=== PATIENT | male | born 1985 | race Caucasian/White ===

== ENCOUNTER 2016-07-26 13:01 | Emergency (ER) | payer SELFPAY ==
[2016-07-26] MEDS ORDERED: ACETAMINOPHEN 325 MG TABLET PO ONE (13:19)
--- NOTE | 2016-07-26 13:24 | ER Document Report ---
ED Extremity Problem, Lower - General Chief Complaint: Ankle Injury Stated Complaint: RIGHT ANKLE INJURY Notes: Patient is a 22-year-old male presents emergency Department complaining of right ankle pain. Patient states that he rolled his ankle last evening woke up with pain and swelling this morning. Patient states that he is not able to bear weight on his foot. Normal sensation in his toes able to move his toes. Tried to flex or extend his ankle due to the pain. Patient denies any history of previous ankle injury requiring surgery. TRAVEL OUTSIDE OF THE [place] IN LAST 30 DAYS: No - Related Data Allergies/Adverse Reactions: No Known Allergies Allergy (Verified 07/26/16 13:12) Past Medical History - Social History Smoking Status: Current Every Day Smoker Family History: Reviewed & Not Pertinent Patient has suicidal ideation: No Patient has homicidal ideation: No Pulmonary Medical History: Reports: Hx Asthma Renal/ Medical History: Denies: Hx Peritoneal Dialysis - Immunizations Hx Diphtheria, Pertussis, Tetanus Vaccination: Yes Review of Systems - Review of Systems Musculoskeletal: See HPI -: Yes All other systems reviewed and negative Physical Exam - Vital signs Vitals: Temp Pulse Resp BP Pulse Ox 98.6 F 94 17 142/86 H 98 07/26/16 13:14 07/26/16 13:14 07/26/16 13:14 07/26/16 13:14 07/26/16 13:14 - Cardiovascular Rhythm: Regular Heart sounds: Normal auscultation Murmur: No Pulses: Normal: Posterior tibial - using doppler due to pain, Dorsalis pedis Normal capillary refill: Yes - Extremities Calf: Normal, Nontender. No: Abrasion, Deformity Ankle: Tender, Deformity - Swelling at the base of the fibula as well as subtle internal rotation of his foot, Edema, Limited ROM, Unable to bear weight. No: Abrasion Foot: Normal, Nontender. No: Abrasion, Deformity, Ecchymosis, Edema - Neurological Neuro grossly intact: Yes Cognition: Normal Orientation: AAOx4 [place] Coma Scale Eye Opening: Spontaneous [place] Coma Scale Verbal: Oriented [place] Coma Scale Motor: Obeys Commands [place] Coma Scale Total: 15 Sensory: Normal - Skin Skin Temperature: Warm Skin Moisture: Dry Skin Color: Normal Skin Turgor: Elastic Course - Re-evaluation Re-evalutation: 07/26/16 14:39 No evidence of fracture on x-ray. Foot is neurovascularly intact. Patient stable for discharge and can follow-up with PCP - Vital Signs Vital signs: Temp Pulse Resp BP Pulse Ox 98.4 F 71 16 135/78 H 98 07/26/16 14:28 07/26/16 14:28 07/26/16 14:28 07/26/16 14:28 07/26/16 14:28 - Diagnostic Test Radiology reviewed: Image reviewed, Reports reviewed Discharge - Discharge Clinical Impression: Ankle sprain Condition: Good Disposition: HOME, SELF-CARE Instructions: Nilo Wrap (OM), Use of Crutches (OM), Sprained Ankle (OM), Ice & Elevation (OM) Prescriptions: Ibuprofen [Motrin 600 Mg Tablet] 600 mg PO TID #15 tablet Forms: Return to Work
[2016-07-26 14:38] VITALS: BP 135/78
== END 2016-07-26 14:25 | disposition home or self-care (01) ==
LOC: ER 13:01
DX: S93.401A Sprain of unspecified ligament of right ankle, initial encounter (principal); M79.89 Other specified soft tissue disorders; X58.XXXA Exposure to other specified factors, initial encounter; F17.200 Nicotine dependence, unspecified, uncomplicated
CPT/HCPCS: 99283; 73610; L1902

== ENCOUNTER 2019-02-11 23:18 | Inpatient (IN) | payer SELFPAY ==
[2019-02-11 23:59] LABS: APPEARANCE,URINE SLIGHTLY-CLOUDY; BILIRUBIN,URINE MODERATE (NEGATIVE); COLOR,URINE AMBER; GLUCOSE, URINE NEGATIVE (NEGATIVE); KETONES,URINE NEGATIVE (NEGATIVE); LEUKOCYTE ESTERASE,URINE NEGATIVE (NEGATIVE); NITRITE,URINE NEGATIVE (NEGATIVE); PROTEIN,URINE 30 mg/dL (NEGATIVE); URINE SPECIFIC GRAVITY 1.023
[2019-02-12 00:10] LABS: ALBUMIN 2.7 g/dL (3.5-5.0); ALKALINE PHOSPHATASE 157 U/L (38-126); ANION GAP 12 (5-19); ASPARTATE AMINO TRANSFERASE 88 U/L (17-59); BILIRUBIN,DIRECT 3.8 mg/dL (0.0-0.4); BILIRUBIN,TOTAL 4.8 mg/dL (0.2-1.3); BLOOD UREA NITROGEN 12 mg/dL (7-20); CALCIUM 8.1 mg/dL (8.4-10.2); CARBON DIOXIDE 21 mmol/L (22-30); CHLORIDE 101 mmol/L (98-107); GLUCOSE 104 mg/dL (75-110); POTASSIUM 3.5 mmol/L (3.6-5.0); TOTAL PROTEIN 5.9 g/dL (6.3-8.2)
[2019-02-12 00:12] LABS: HEMATOCRIT 38.4 % (37.9-51.0); HEMOGLOBIN 13.2 g/dL (13.5-17.0); MEAN CORPUSCULAR HEMOGLOBIN 34.7 pg (27.0-33.4); MEAN CORPUSCULAR HGB CONC 34.3 g/dL (32.0-36.0); MEAN CORPUSCULAR VOLUME 101 fl (80-97); PLATELET COUNT 103 10^3/uL (150-450); RED BLOOD COUNT 3.79 10^6/uL (4.35-5.55); RED CELL DISTRIBUTION WIDTH 13.6 % (11.5-14.0); WHITE BLOOD COUNT 6.4 10^3/uL (4.0-10.5)
[2019-02-12 00:27] LABS: ABSOLUTE LYMPHOCYTES# (MANUAL) 0.6 10^3/uL (0.5-4.7); ABSOLUTE MONOCYTES # (MANUAL) 0.3 10^3/uL (0.1-1.4); BAND NEUTROPHILS % (MANUAL) 10 % (3-5); BASOPHILS % (MANUAL) 0 % (0-2); EOSINOPHILS % (MANUAL) 0 % (0-6); HYPOCHROMASIA 1+; LYMPHOCYTES % (MANUAL) 10 % (13-45); MONOCYTES % (MANUAL) 4 % (3-13); SEGMENTED NEUTROPHILS % (MAN) 76 % (42-78); TOTAL CELLS COUNTED 100
[2019-02-12 00:28] LABS: PLATELET COMMENT DECREASED
[2019-02-12] MEDS ORDERED: METHYLPREDNISOLONE INJ 125 MG/2 ML SDV IV ONE (01:24)
[2019-02-12] MEDS ORDERED: IPRATROPIUM BROMIDE 0.02% NEB 0.5 MG/2.5 ML AMPUL NEB ONE (01:25)
[2019-02-12] MEDS ORDERED: ALBUTEROL SULFATE 0.083% NEB 2.5 MG/3 ML AMPUL NEB ONE (01:25)
[2019-02-12] MEDS ORDERED: PREDNISONE 20 MG TABLET PO ONE (01:55)
--- NOTE | 2019-02-12 02:06 | RADIOLOGY REPORT (SQ) ---
CLINICAL HISTORY: cough COMPARISON: None. TECHNIQUE: XR CHEST 1 VIEW 02/12/2019 1:24 AM CDT FINDINGS: Cardiac silhouette is normal in size. There is a large consolidation in the mid and lower left lung. There is no pleural effusion. There is no pneumothorax. There are no acute osseous findings. IMPRESSION: Large left-sided pneumonia.
[2019-02-12] MEDS ORDERED: AZITHROMYCIN INJ 500 MG VIAL IV ONE (02:17)
[2019-02-12] MEDS ORDERED: CEFTRIAXONE 2 GM/D5W RTU 2 GM/50 ML RTUPB IV ONE (02:18)
--- NOTE | 2019-02-12 02:20 | ER Document Report ---
ED Respiratory Problem - General Chief Complaint: Breathing Difficulty Stated Complaint: DIFFICULTY BREATHING Time Seen by Provider: 02/12/19 01:24 Information source: Patient TRAVEL OUTSIDE OF THE [place] IN LAST 30 DAYS: No - HPI Patient complains to provider of: Asthma. No: Chest pain, CHF, COPD, Cough, Hurts to breath, Short of breath, Other Onset: Last week Duration: Continuous. No: Better, Gone now, Intermittent episodes, W orse/persistent Quality of pain: denies: No pain, Achy, Burning, Cramping, Dull, Fullness, Pressure, Sharp, Stabbing, Throbbing, Other Context: denies: DVT, Factor V Leiden, Hx asthma, Hx CHF, Hx COPD, Malignancy, , Recent cardiac event, Recent foreign travel, Recent long distance trvl, Recent immobilization, Recent surgery, Smoker, Other Chest pain/discomfort: Left, Worse with deep breaths. denies: Center, Constant, Heaviness, Intermittent, Pain, Radiates to arm, Radiates to back, Radiates to jaw, Right, Tightness Cough: Productive. denies: Nonproductive, Stridor, Suspect aspiration Sputum amount: Small. denies: None, Scant, Moderate, Large, Copious Sputum color: Green. denies: Brown, Clear, Creamy, [place], [place] tinged, Red (bloo d), Red [place], Rust, Small Clots, [place], White, Yellow At home treatment: denies: Bronchodilators, CPAP, Diuretics, Inhaled steroids, Oral steroids, Oxygen, Singulair, Theophylline Associated symptoms: Cough, Short of breath, Wheezing. denies: None, Ankle/leg swelling, Allergy/hay fever, Anxiety, Bloody cough, Chest pain/discomfort, Chills, Congestion, Dental decay, Difficulty breathing, Earache, Extertional dyspnea, Facial pain, Fever, Headache, Heart racing, Hoarseness, Hurts to breathe, Hyperventilation, Jaw pain, Leg/calf/joint pain, Muscle spasms, Orthopnea, PND, Runny nose, Sinus pain/pressure, Sore Throat, Sweaty, Tingling face, Tingling hands, Unable to swallow, Toothache, Other - Related Data Allergies/Adverse Reactions: No Known Allergies Allergy (Verified 07/26/16 13:12) Home Medications: none Past Medical History - Social History Smoking Status: Current Every Day Smoker Chew tobacco use (# tins/day): No Frequency of alcohol use: Occasional Drug Abuse: None Family History: Reviewed & Not Pertinent Patient has suicidal ideation: No Patient has homicidal ideation: No Pulmonary Medical History: Reports: Hx Asthma Renal/ Medical History: Denies: Hx Peritoneal Dialysis - Immunizations Hx Diphtheria, Pertussis, Tetanus Vaccination: Yes Review of Systems - Review of Systems Constitutional: Fever. denies: No symptoms reported, See HPI, Chills, Diaphoresis, Malaise, Weakness, Other, Weight gain, Weight loss, Recent illness EENT: denies: No symptoms reported, See HPI, Eye pain, Eye discharge, Blurred vision, Tearing, Double vision, Ear pain, Ear discharge, Nose pain, Nose congestion, Nose discharge, Sinus pressure, Sinus discharge, Throat pain, Diffi culty swallowing, Throat swelling, Mouth pain, Mouth swelling, Dental problem, Vertigo, Other Cardiovascular: denies: No symptoms reported, See HPI, Chest pain, Palpitations, Heart racing, Orthopnea, Dyspnea, Syncope, Dizziness, Lightheaded, Edema, Other, Paroxysmal Nocturnal Dysp Respiratory: Cough, Short of breath, Wheezing. denies: No symptoms reported, See HPI, Hurts to breathe, Hemoptysis, Sputum, Stridor, Other Gastrointestinal: denies: No symptoms reported, See HPI, Abdomen distended, Abdominal pain, Diarrhea, Nausea, Vomiting, Constipation, Blood streaked bowels, Poor appetite, Poor fluid intake, Blood in vomit, Black stools, Rectal bleeding, Last bowel movement, Fecal incontinence, Other -: Yes All other systems reviewed and negative Physical Exam - Vital signs Vitals: Temp Pulse Resp BP Pulse Ox 100.2 F 135 H 26 H 119/72 95 02/11/19 23:25 02/11/19 23:25 02/11/19 23:25 02/11/19 23:25 02/11/19 23:25 Notes: PHYSICAL EXAMINATION: GENERAL: Well-appearing, well-nourished and in no acute distress. HEAD: Atraumatic, normocephalic. EYES: Pupils equal round and reactive to light, extraocular movements intact, sclera anicteric, conjunctiva are normal. ENT: nares patent, oropharynx clear without exudates. Moist mucous membranes. NECK: Normal range of motion, supple without lymphadenopathy LUNGS: Rhonchi heard in the left upper and lower lobes. Rales are negative. Wheezes heard bilaterally. HEART: Regular rate and rhythm without murmurs ABDOMEN: Soft, nontender, normoactive bowel sounds. No guarding, no rebound. No masses appreciated. EXTREMITIES: Normal range of motion, no pitting or edema. No cyanosis. NEUROLOGICAL: No focal neurological deficits. Moves all extremities spontaneously and on command. PSYCH: Normal mood, normal affect. SKIN: Warm, Dry, normal turgor, no rashes or lesions noted. Course - Vital Signs Vital signs: Temp Pulse Resp BP Pulse Ox 100.3 F 146 H 25 H 123/71 94 02/12/19 04:07 02/12/19 02:35 02/12/19 03:01 02/12/19 03:00 02/12/19 03:01 - Laboratory Result Diagrams: 02/11/19 23:34 02/11/19 23:34 Laboratory results interpreted by me: 02/11/19 02/11/19 02/11/19 23:34 23:34 23:34 RBC 3.79 L Hgb 13.2 L MCV 101 H MCH 34.7 H Plt Count 103 L Band Neutrophils % 10 H Lymphocytes % (Manual) 10 L Carbonic Acid ABG pH ABG pCO2 ABG pO2 ABG Total CO2 Sodium 133.6 L Potassium 3.5 L Carbon Dioxide 21 L Lactic Acid Calcium 8.1 L Total Bilirubin 4.8 H Direct Bilirubin 3.8 H AST 88 H Alkaline Phosphatase 157 H Total Protein 5.9 L Albumin 2.7 L Urine Protein 30 H Urine Bilirubin MODERATE H Urine Urobilinogen 4.0 H 02/12/19 02/12/19 02:36 03:21 RBC Hgb MCV MCH Plt Count Band Neutrophils % Lymphocytes % (Manual) Carbonic Acid 0.89 L ABG pH 7.48 H ABG pCO2 29.5 L ABG pO2 64.3 L ABG Total CO2 22.1 L Sodium Potassium Carbon Dioxide Lactic Acid 3.7 H Calcium Total Bilirubin Direct Bilirubin AST Alkaline Phosphatase Total Protein Albumin Urine Protein Urine Bilirubin Urine Urobilinogen - Diagnostic Test Radiology reviewed: Image reviewed, Reports reviewed - Transfer of Care Notes: 02/12/19 04:16 Patient feeling better after treatments however be admitted due to pneumonia and sepsis. With hospitalist and he plans to admit the patient Discharge - Discharge Clinical Impression: Sepsis Pneumonia Qualifiers: Pneumonia type: due to unspecified organism Laterality: left Lung location: lower lobe of lung Qualified Code(s): J18.1 - Lobar pneumonia, unspecified organism Condition: Fair Disposition: ADMITTED INPATIENT Admitting Provider: Brianda (Hospitalist) Unit Admitted: Medical Floor
[2019-02-12] MEDS ORDERED: ACETAMINOPHEN 325 MG TABLET PO ONE (02:47)
[2019-02-12 02:51] LABS: A TYPE INFLUENZA AG NEGATIVE (NEGATIVE); B INFLUENZA AG NEGATIVE (NEGATIVE)
[2019-02-12 03:49] LABS: ARTERIAL BLOOD BASE EXCESS -1.4 mmol/L; ARTERIAL BLOOD H2CO3 0.89 mmol/L (1.05-1.35); ARTERIAL BLOOD HCO3 21.2 mmol/L (20-24); ARTERIAL BLOOD O2 SATURATION 94.1 % (94-98); ARTERIAL BLOOD PCO2 29.5 mmHg (35-45); ARTERIAL BLOOD PH 7.48 (7.35-7.45); ARTERIAL BLOOD PO2 64.3 mmHg (80-100); ARTERIAL BLOOD TOTAL CO2 22.1 mmol/L (23-27)
[2019-02-12 03:51] LABS: ARTERIAL BLOOD FIO2 ROOM AIR
[2019-02-12] MEDS ORDERED: NORMAL SALINE 1000 ML 1,000 ML IV ONE (04:06)
[2019-02-12] MEDS: HEPARIN SOD (PORCINE) 5,000 UNIT/ML 1 ML VIAL SUBCUT SCH ×3 (06:05→21:07)
[2019-02-12] MEDS ORDERED: GUAIFENESIN SYRP 200 MG/10 ML UDC PO PRN (06:14)
[2019-02-12] MEDS ORDERED: ACETAMINOPHEN 325 MG TABLET PO PRN (06:17)
[2019-02-12] MEDS ORDERED: NALBUPHINE HCL INJ 10 MG/1 ML AMPULE IV PRN ×3 (06:17→07:26)
--- NOTE | 2019-02-12 06:35 | PDOC H&P ---
History of Present Illness Admission Date/PCP: 02/12/2019 04:22 No local PCP Patient complains of: Dyspnea History of Present Illness: EUGENIO LICEA is a 33 year old male who presented the emergency room with a one- week history of dyspnea. Patient admits to progressively worsening dyspnea over the last 7 days. His dyspnea has become severe and has been associated with progressively worsening wheezing. His dyspnea has also been accompanied by a subjective fever, a progressively worsening cough productive of green mucus and a aggressively worsening left-sided sharp chest pain occurring on inspiration and cough. He denies additional accompanying or associated signs and symptoms. He denies prior similar episodes. He denies identification of any additional aggravating or ameliorating factors for his dyspnea. In the emergency room he was found to have a temperature of 101.5 F a heart rate of 146 with a serum lactic acid was 3.7 and a left sided pneumonia on his chest x-ray. He was subsequently started on IV antibiotics for a community-acquired pneumonia admitted to the hospital for further evaluation and treatment. Past Medical History Cardiac Medical History: Denies: Coronary Artery Disease, Hypertension Pulmonary Medical History: Reports: Asthma Denies: Pneumonia EENT Medical History: Denies: Cataracts, Ears - Hearing aids, Nose - Allergic rhinitis Neurological Medical History: Denies: Hemorrhagic CVA, Ischemic CVA, Seizures Endocrine Medical History: Denies: Diabetes Mellitus Type 1, Diabetes Mellitus Type 2, Hyperthyroidism, Hypothyroidism Renal/ Medical History: Denies: Chronic Kidney Disease, Nephrolithiasis Malignancy Medical History: Reports: None GI Medical History: Denies: Cirrhosis, Hepatitis Musculoskeltal Medical History: Denies: Arthritis, Gout Skin Medical History: Denies: Eczema, Psoriasis Psychiatric Medical History: Reports: Tobacco Dependency Denies: Alcohol Dependency, Substance Abuse Traumatic Medical History: Reports: None Hematology: Denies: Anemia, Bleeding Tendencies Infectious Medical History: Reports: None Past Surgical History Past Surgical History: Reports: None Social History Information Source: Patient Lives with: Parents - Mother Smoking Status: Current Every Day Smoker Electronic Cigarette use?: No Frequency of Alcohol Use: Heavy - 6-8 beers daily Hx Recreational Drug Use: No - Has history of heroin overdose per [facility] records Drugs: None Hx Prescription Drug Abuse: No - Advance Directive Resuscitation Status: Full Code Surrogate healthcare decision maker:: Nica Nieves Family History Family History: CAD, DM, Hypertension, Malignancy Parental Family History Reviewed: Yes Children Family History Reviewed: No Sibling(s) Family History Reviewed.: Yes Medication/Allergy Home Medications: No Home Medications 02/12/19 Allergies/Adverse Reactions: No Known Allergies Allergy (Verified 07/26/16 13:12) Review of Systems Constitutional: PRESENT: fever(s). ABSENT: anorexia, chills Eyes: ABSENT: visual disturbances, other - Eye pain Ears: ABSENT: hearing changes, other - Ear pain Nose, Mouth, and Throat: ABSENT: mouth pain, sore throat Cardiovascular: PRESENT: as per HPI, chest pain. ABSENT: palpitations Respiratory: PRESENT: as per HPI, cough, dyspnea, sputum. ABSENT: hemoptysis Gastrointestinal: ABSENT: abdominal pain, constipation, diarrhea, nausea, vomiting Genitourinary: ABSENT: dysuria, hematuria Musculoskeletal: ABSENT: back pain, joint swelling, muscle weakness Integumentary: ABSENT: pruritus, rash Neurological: ABSENT: confusion, convulsions, focal weakness, memory loss, syncope Psychiatric: ABSENT: anxiety, depression Endocrine: ABSENT: cold intolerance, heat intolerance Hematologic/Lymphatic: ABSENT: easy bleeding, easy bruising Allergic/Immunologic: ABSENT: seasonal rhinorrhea Physical Exam Vital Signs: Temp Pulse Resp BP Pulse Ox 100.3 F 146 H 25 H 123/71 94 02/12/19 04:07 02/12/19 02:35 02/12/19 03:01 02/12/19 03:00 02/12/19 03:01 Intake & Output 02/10/19 02/11/19 02/12/19 23:59 23:59 23:59 Intake Total 50 Balance 50 Weight 71 kg General appearance: PRESENT: no acute distress, cooperative Head exam: PRESENT: atraumatic, normocephalic Eye exam: PRESENT: conjunctiva pink. ABSENT: conjunctival injection, scleral icterus Ear exam: PRESENT: normal external ear exam. ABSENT: bleeding, drainage Mouth exam: PRESENT: dry mucosa, neck supple Neck exam: ABSENT: thyromegaly, tracheal deviation Respiratory exam: PRESENT: decreased breath sounds - Decreased breath sounds in the left lower lung bernabe, prolonged expiratory phas - Minimally prolonged expiratory phase present all bernabe, rales - Coarse rales present in the left lower lung bernabe, rhonchi - Coarse rhonchi present in the left lower lung field, symmetrical, wheezes - Mild expiratory wheezes present in all bernabe Cardiovascular exam: PRESENT: RRR, tachycardia. ABSENT: clicks, gallop, rubs Pulses: PRESENT: normal radial pulses, normal dorsalis pedis pul Vascular exam: PRESENT: normal capillary refill. ABSENT: pallor GI/Abdominal exam: PRESENT: normal bowel sounds, soft Rectal exam: PRESENT: deferred Extremities exam: ABSENT: joint swelling, pedal edema Musculoskeletal exam: ABSENT: deformity, dislocation Neurological exam: PRESENT: alert, oriented to person, oriented to place, oriented to time, oriented to situation, CN II-XII grossly intact. ABSENT: motor sensory deficit Psychiatric exam: PRESENT: appropriate affect, normal mood Skin exam: PRESENT: dry, intact, warm. ABSENT: jaundice, rash, urticaria Results Laboratory Results: 02/11/19 23:34 02/11/19 23:34 02/11/19 02/11/19 02/11/19 23:34 23:34 23:34 WBC 6.4 RBC 3.79 L Hgb 13.2 L Hct 38.4 MCV 101 H MCH 34.7 H MCHC 34.3 RDW 13.6 Plt Count 103 L Seg Neutrophils % Not Reportable Carbonic Acid HCO3/H2CO3 Ratio ABG pH ABG pCO2 ABG pO2 ABG HCO3 ABG O2 Saturation ABG Base Excess FiO2 Sodium 133.6 L Potassium 3.5 L Chloride 101 Carbon Dioxide 21 L Anion Gap 12 BUN 12 Creatinine 1.04 Est GFR ( Amer) > 60 Glucose 104 Lactic Acid Calcium 8.1 L Total Bilirubin 4.8 H AST 88 H Alkaline Phosphatase 157 H Total Protein 5.9 L Albumin 2.7 L Lipase 26.1 Urine Color [place] Urine Appearance SLIGHTLY-CLOUDY Urine pH 5.0 Ur Specific [place] 1.023 Urine Protein 30 H Urine Glucose (UA) NEGATIVE Urine Ketones NEGATIVE Urine Blood NEGATIVE Urine Nitrite NEGATIVE Ur Leukocyte Esterase NEGATIVE Urine WBC (Auto) 36 Urine RBC (Auto) 1 02/12/19 02/12/19 02:36 03:21 WBC RBC Hgb Hct MCV MCH MCHC RDW Plt Count Seg Neutrophils % Carbonic Acid 0.89 L HCO3/H2CO3 Ratio 23:1 ABG pH 7.48 H ABG pCO2 29.5 L ABG pO2 64.3 L ABG HCO3 21.2 ABG O2 Saturation 94.1 ABG Base Excess -1.4 FiO2 ROOM AIR Sodium Potassium Chloride Carbon Dioxide Anion Gap BUN Creatinine Est GFR ( Amer) Glucose Lactic Acid 3.7 H Calcium Total Bilirubin AST Alkaline Phosphatase Total Protein Albumin Lipase Urine Color Urine Appearance Urine pH Ur Specific [place] Urine Protein Urine Glucose (UA) Urine Ketones Urine Blood Urine Nitrite Ur Leukocyte Esterase Urine WBC (Auto) Urine RBC (Auto) Impressions: Chest X-Ray 02/12/19 01:24 IMPRESSION: Large left-sided pneumonia. Assessment and Plan - Diagnosis (1) Community acquired pneumonia Qualifiers: Laterality: left Lung location: lower lobe of lung Qualified Code(s): J18.1 - Lobar pneumonia, unspecified organism Is this a current diagnosis for this admission?: Yes Plan: Patient will be treated with IV Rocephin and Zithromax. He will receive an aggressive pulmonary toilet utilizing nebulized Xopenex, Mucomyst, Atrovent and Pulmicort. He will receive IV fluids and supportive as well as symptomatic cares. Daily CBCs, metabolic profiles and magnesium levels will be obtained. (2) Acute respiratory failure with hypoxia Is this a current diagnosis for this admission?: Yes Plan: Patient was treated with supplemental oxygen via nasal cannula, or more aggressive therapy as required to maintain an oxygen saturation of the 93%. O2 sat will be monitored frequently throughout his hospital course. (3) SIRS (systemic inflammatory response syndrome) Is this a current diagnosis for this admission?: Yes Plan: Serial lactic acids will be obtained. Patient be observed closely for additional signs of sepsis. (4) Pleuritic chest pain Is this a current diagnosis for this admission?: Yes Plan: Patient is ibuprofen 800 mg p.o. every 6 hours as needed pain for control of his pleuritic chest pain. For chest pain not responsive to ibuprofen he will be given Nubain 5 to 10 mg IV every 3 hours on a as needed basis utilizing a sliding scale for pain. (5) Tobacco use disorder, severe, dependence Is this a current diagnosis for this admission?: Yes Plan: Smoking cessation is advised and counseled briefly at bedside. A nicotine replacement patch is available for the patient's use, if desired. - Time Time Spent with patient: 25-34 minutes Smoking Cessation Education: 3 to 10 minutes Medications reviewed and adjusted accordingly: Yes Anticipated discharge: Home - Inpatient Certification Based on my medical assessment, after consideration of the patient's comorbidities, presenting symptoms, or acuity I expect that the services needed warrant INPATIENT care.: Yes I certify that my determination is in accordance with my understanding of Medicare's requirements for reasonable and necessary INPATIENT services [42 CFR 412.3e].: Yes Medical Necessity: Need Close Monitoring Due to Risk of Patient Decompensation, Need For IV Fluids, Need for Nebulizer Therapy and Monitoring of Response, Need for Pain Control, Need for IV Antibiotics, Risk of Complication if Not Cared For in Hospital, Risk of Diagnosis Which Will Require Inpatient Eval/Care/Monitoring
[2019-02-12] MEDS ORDERED: CHLORPROMAZINE HCL INJ 25 MG/1 ML AMPULE IV PRN (06:36)
[2019-02-12] MEDS ORDERED: DIAZEPAM INJ 10 MG/2 ML DISP.SYRIN IV PRN (06:36)
[2019-02-12] MEDS: IBUPROFEN 800 MG TABLET PO PRN ×2 (06:59→19:56)
[2019-02-12] MEDS: RINGERS SOLUTION,LACTATED 1,000 ML IV PRN ×3 (07:06→19:58)
[2019-02-12] MEDS ORDERED: ACETYLCYSTEINE 20% SOLN 800 MG/4 ML VIAL.NEB NEB SCH (08:00)
[2019-02-12] MEDS: IPRATROPIUM BROMIDE 0.02% NEB 0.5 MG/2.5 ML AMPUL NEB SCH ×2 (09:00→16:11)
[2019-02-12] MEDS: LEVALBUTEROL HCL NEB 1.25 MG/3 ML AMPUL NEB SCH ×2 (09:00→16:11)
[2019-02-12] MEDS: BUDESONIDE NEB 0.5 MG/2 ML AMPUL NEB SCH ×2 (09:00→20:00)
[2019-02-12] MEDS: ACETYLCYSTEINE 20% SOLN 800 MG/4 ML VIAL.NEB NEB SCH ×2 (10:29→20:00)
[2019-02-12] MEDS: LEVALBUTEROL HCL NEB 0.63 MG/3 ML AMPUL NEB PRN ×2 (10:29→20:01)
[2019-02-12] MEDS: FAMOTIDINE 20 MG TABLET PO SCH ×2 (11:02→21:08)
[2019-02-12] MEDS: DIAZEPAM 5 MG TABLET PO SCH ×2 (12:46→17:59)
[2019-02-12] MEDS ORDERED: CHLORPROMAZINE HCL INJ 25 MG/1 ML AMPULE ONE (19:39)
[2019-02-12] MEDS ORDERED: AZITHROMYCIN 500 MG in DEXTROSE 5%-WATER 250 ML IV SCH (22:00)
--- NOTE | 2019-02-12 22:01 | Progress Note ---
Provider Note Provider Note: Critical care note: 02/12/2019 Critical care start time: 20:21 Critical care issue acute hypoxia, tachypnea and tachycardia I was called to see the patient because he had developed acute hypoxia, tachypnea and tachycardia after receiving a nebulizer treatment and Mucomyst. Patient had developed a paroxysmal cough after the nebulizer therapy had been administered and developed severe nausea and retching. He received Thorazine 25 mg IV x1 and his nausea improved and he was able to lay back on his bed. The nurse went back to recheck him and found him to be hypoxic, tachypneic and tachycardic. I came to the room to evaluate the patient and found on exam the patient was reclining on the bed and was able to speak in 3-4 word sentences while wearing a nonrebreather mask with oxygen at 10 L/min. His heart rate was 160, his respiratory rate was 30-40 breaths/min with rapid shallow respirations followed by slower more deep respirations (Simon-Fam breathing) and his oxygen saturation was 91%. On examination of the chest the lungs showed coarse rales throughout the left lung and coarse rhonchi throughout both lungs with a marked tachypnea and Simon-Fam breathing as previously noted. Heart showed a regular rate and rhythm without murmurs clicks gallops or rubs and a marked tachycardia as previously noted. A stat chest x-ray was obtained and showed some increase in the infiltrate of the left lung and what appears to be a new airspace infiltrate in the right middle lobe region. ABGs were ordered but had not been obtained at the time of this writing. The patient was in my opinion significantly changed and needed to be transferred to the ICU. I discussed this matter with the patient and his and they were in agreement. I notified the banking consultant and the nursing asbestos pipe supervisor of the ICU as to the need for a transfer. The banking consultant came to evaluate the patient and agreed to accept the patient in transfer to the ICU. Patient was subsequently transferred to the ICU. Critical care end time: 21:51 Total critical care time: 44 minutes
--- NOTE | 2019-02-12 22:08 | CRITICAL CARE ADMISSION REPORT ---
HPI Date:: 02/12/19 Time:: 21:45 Reason for ICU Reason:: Need for bipap, close monitoring for possible need for intubation. HPI: This patient is a 33 yo man admitted earlier today with a L pnemonia and sepsis. While on the medical floor he coughed and wretched several times and became markedly tachycardic up to 140-50 range and tachypnic. He seems to be mentating well for now but seems tired. His CXR show PNA is dense and a burgeoning infiltrate on RLL C/W aspiration in addition to CAP and sepsis. He will need to in the ICU for intubation potential and bipap to decrease his work of breathing. Continue abx anf IVF. History obtained from:: Pt and mother - Diagnosis/Plan (1) Aspiration into respiratory tract Qualifiers: Encounter type: initial encounter Qualified Code(s): T17.908A - Unspecified foreign body in respiratory tract, part unspecified causing other injury, initial encounter Is this a current diagnosis for this admission?: Yes Plan: Major reason for sudden decompensation. Bipap to decrease WOB. Hopefully wont need intubation. Clear liquids only. Continue abx. No new abx for aspiration (2) Acute respiratory failure with hypoxia Is this a current diagnosis for this admission?: Yes Plan: Treat with supportive care with bipap (3) Community acquired pneumonia Qualifiers: Laterality: left Lung location: lower lobe of lung Qualified Code(s): J18.1 - Lobar pneumonia, unspecified organism Is this a current diagnosis for this admission?: Yes Plan: Same as above. (4) Sepsis Qualifiers: Sepsis type: sepsis due to unspecified organism Severe sepsis acute organ dysfunction type: acute respiratory failure Acute respiratory failure type: with hypoxia Severe sepsis shock status: without septic shock Is this a current diagnosis for this admission?: Yes Past Medical History Cardiac Medical History: Denies: Coronary Artery Disease, Hypertension Pulmonary Medical History: Reports: Asthma Denies: Pneumonia EENT Medical History: Denies: Cataracts, Ears - Hearing aids, Nose - Allergic rhinitis Neurological Medical History: Denies: Hemorrhagic CVA, Ischemic CVA, Seizures Endocrine Medical History: Denies: Diabetes Mellitus Type 1, Diabetes Mellitus Type 2, Hyperthyroidism, Hypothyroidism Renal/ Medical History: Denies: Chronic Kidney Disease, Nephrolithiasis Malignancy Medical History: Reports: None GI Medical History: Denies: Cirrhosis, Hepatitis Musculoskeltal Medical History: Denies: Arthritis, Gout Skin Medical History: Denies: Eczema, Psoriasis Psychiatric Medical History: Reports: Tobacco Dependency Denies: Alcohol Dependency, Depression, Substance Abuse Traumatic Medical History: Reports: None Hematology: Denies: Anemia, Bleeding Tendencies Infectious Medical History: Reports: None Past Surgical History Past Surgical History: Reports: None Social/Family History - Social History Lives with: Parents - Mother Smoking Status: Current Every Day Smoker Number of Years Smokin Frequency of Alcohol Use: Heavy - 6-8 beers daily Hx Recreational Drug Use: No - Has history of heroin overdose per [facility] records Drugs: None Hx Prescription Drug Abuse: No - Medication/Allergies Home Medications: No Home Medications 02/12/19 Allergies/Adverse Reactions: No Known Allergies Allergy (Verified 07/26/16 13:12) Review of Systems Constitutional: PRESENT: fatigue, weakness Eyes: ABSENT: visual disturbances Ears: ABSENT: hearing changes Cardiovascular: ABSENT: chest pain, dyspnea on exertion, edema, orthropnea, palpitations Respiratory: PRESENT: cough, dyspnea Gastrointestinal: PRESENT: nausea, vomiting Genitourinary: ABSENT: dysuria, hematuria Musculoskeletal: ABSENT: joint swelling Integumentary: ABSENT: rash, wounds Neurological: ABSENT: abnormal gait, abnormal speech, confusion, dizziness, focal weakness, syncope Psychiatric: ABSENT: anxiety, depression, homidical ideation, suicidal ideation Endocrine: ABSENT: cold intolerance, heat intolerance, polydipsia, polyuria Hematologic/Lymphatic: ABSENT: easy bleeding, easy bruising Physical Exam Vital Signs: Temp Pulse Resp BP Pulse Ox 98.6 F 115 H 16 114/66 96 02/12/19 15:56 02/12/19 16:11 02/12/19 16:11 02/12/19 15:56 02/12/19 16:11 Pulse Oximeter Continuous Start: 02/12/19 06:14 Freq: RTQ4 Status: Complete Protocol: Document 02/12/19 10:31 [facility] (Rec: 02/12/19 10:32 [facility] [id number]) Pulse Oximetry Assessment Equipment Usage Equipment Standby Continuous SpO2 Machine # na Intake & Output 02/11/19 02/12/19 02/13/19 06:59 06:59 06:59 Intake Total 1050 4524 Balance 1050 4524 Weight 71.4 kg Weight/Height Weight 71.4 kg Height 5 ft 9 in General appearance: PRESENT: mild distress Head exam: PRESENT: atraumatic Eye exam: PRESENT: conjunctiva pink, EOMI, PERRLA. ABSENT: scleral icterus Mouth exam: PRESENT: moist, tongue midline Neck exam: ABSENT: carotid bruit, JVD, lymphadenopathy, thyromegaly Respiratory exam: PRESENT: crackles, rhonchi, tachypnea Cardiovascular exam: PRESENT: tachycardia Pulses: PRESENT: normal dorsalis pedis pul Vascular exam: PRESENT: normal capillary refill GI/Abdominal exam: PRESENT: soft Rectal exam: PRESENT: deferred Musculoskeletal exam: PRESENT: full ROM, normal inspection Neurological exam: PRESENT: alert, oriented to person, oriented to place, oriented to time, oriented to situation Psychiatric exam: PRESENT: appropriate affect, normal mood. ABSENT: homicidal ideation, suicidal ideation Skin exam: PRESENT: normal color Laboratory/Radiographs Laboratory Results: 02/11/19 23:34 02/11/19 23:34 02/11/19 02/11/19 02/11/19 23:34 23:34 23:34 WBC 6.4 RBC 3.79 L Hgb 13.2 L Hct 38.4 MCV 101 H MCH 34.7 H MCHC 34.3 RDW 13.6 Plt Count 103 L Seg Neutrophils % Not Reportable Carbonic Acid HCO3/H2CO3 Ratio ABG pH ABG pCO2 ABG pO2 ABG HCO3 ABG O2 Saturation ABG Base Excess FiO2 Sodium 133.6 L Potassium 3.5 L Chloride 101 Carbon Dioxide 21 L Anion Gap 12 BUN 12 Creatinine 1.04 Est GFR ( Amer) > 60 Glucose 104 Lactic Acid Calcium 8.1 L Total Bilirubin 4.8 H AST 88 H Alkaline Phosphatase 157 H Total Protein 5.9 L Albumin 2.7 L Lipase 26.1 Urine Color [place] Urine Appearance SLIGHTLY-CLOUDY Urine pH 5.0 Ur Specific Hamill 1.023 Urine Protein 30 H Urine Glucose (UA) NEGATIVE Urine Ketones NEGATIVE Urine Blood NEGATIVE Urine Nitrite NEGATIVE Ur Leukocyte Esterase NEGATIVE Urine WBC (Auto) 36 Urine RBC (Auto) 1 02/12/19 02/12/19 02:36 03:21 WBC RBC Hgb Hct MCV MCH MCHC RDW Plt Count Seg Neutrophils % Carbonic Acid 0.89 L HCO3/H2CO3 Ratio 23:1 ABG pH 7.48 H ABG pCO2 29.5 L ABG pO2 64.3 L ABG HCO3 21.2 ABG O2 Saturation 94.1 ABG Base Excess -1.4 FiO2 ROOM AIR Sodium Potassium Chloride Carbon Dioxide Anion Gap BUN Creatinine Est GFR ( Amer) Glucose Lactic Acid 3.7 H Calcium Total Bilirubin AST Alkaline Phosphatase Total Protein Albumin Lipase Urine Color Urine Appearance Urine pH Ur Specific Hamill Urine Protein Urine Glucose (UA) Urine Ketones Urine Blood Urine Nitrite Ur Leukocyte Esterase Urine WBC (Auto) Urine RBC (Auto) Impressions: Chest X-Ray 02/12/19 01:24 IMPRESSION: Large left-sided pneumonia. Critical Time Critical Time (minutes): 45 -: The care of a critically ill patient is dynamic. This note represents a static moment in the admission process. orders and treatments may be given simulataneously and urgentl, and time is not sales representative girls' apparel of the treatment process. This patient requires Critical Care secondary to life threating organ or limb dysfunction. Without the need for Critical Care services, the patient is at risk for increasid mortality and morbidity.
[2019-02-12] MEDS ORDERED: OXYCODONE HCL IR 5 MG TABLET PO PRN (22:09)
--- NOTE | 2019-02-12 22:17 | RADIOLOGY REPORT (SQ) ---
EXAM DESCRIPTION: [facility]: XR CHEST 1 VIEW CLINICAL HISTORY: 33 years Male, SOB FINDINGS: AP chest at 2148. Since 0136, left pulmonary infiltrate involves larger portion of the left lung. There is increased consolidation, with multiple air bronchograms. A new infiltrate is developing in the lateral right lower lobe. No pneumothorax. Mediastinum is grossly unchanged. IMPRESSION: 1. Significantly worse left pulmonary infiltrate, consistent with pneumonia 2. Interval development of new right lower lobe infiltrate
[2019-02-12] MEDS ORDERED: LORAZEPAM 1 MG TABLET PO PRN (22:28)
[2019-02-12 22:43] LABS: ARTERIAL BLOOD BASE EXCESS 0.4 mmol/L; ARTERIAL BLOOD H2CO3 0.96 mmol/L (1.05-1.35); ARTERIAL BLOOD HCO3 23.3 mmol/L (20-24); ARTERIAL BLOOD O2 SATURATION 92.2 % (94-98); ARTERIAL BLOOD PCO2 31.9 mmHg (35-45); ARTERIAL BLOOD PH 7.48 (7.35-7.45); ARTERIAL BLOOD PO2 57.9 mmHg (80-100); ARTERIAL BLOOD TOTAL CO2 24.3 mmol/L (23-27)
[2019-02-12 22:46] LABS: ARTERIAL BLOOD FIO2 FLOW RATE 10
[2019-02-13] MEDS: LEVALBUTEROL HCL NEB 1.25 MG/3 ML AMPUL NEB SCH ×2 (00:25→08:22)
[2019-02-13] MEDS: IPRATROPIUM BROMIDE 0.02% NEB 0.5 MG/2.5 ML AMPUL NEB SCH ×2 (00:26→08:22)
[2019-02-13] MEDS ORDERED: AZITHROMYCIN 500 MG in DEXTROSE 5%-WATER 250 ML IV SCH (02:00)
[2019-02-13] MEDS: DIAZEPAM 5 MG TABLET PO SCH (02:50)
[2019-02-13] MEDS ORDERED: CHLORPROMAZINE HCL INJ 25 MG/1 ML AMPULE ONE (02:51)
[2019-02-13] MEDS ORDERED: CEFTRIAXONE 1 GM/D5W RTU 1 GM/50 ML RTUPB IV SCH (03:00)
[2019-02-13] MEDS ORDERED: DIAZEPAM INJ 10 MG/2 ML DISP.SYRIN IV PRN ×2 (03:55→04:00)
[2019-02-13 05:15] LABS: MEAN CORPUSCULAR HEMOGLOBIN 31.9 pg (27.0-33.4); MEAN CORPUSCULAR HGB CONC 31.5 g/dL (32.0-36.0); MEAN CORPUSCULAR VOLUME 101 fl (80-97); RED BLOOD COUNT 3.36 10^6/uL (4.35-5.55); RED CELL DISTRIBUTION WIDTH 13.8 % (11.5-14.0); WHITE BLOOD COUNT 4.9 10^3/uL (4.0-10.5)
[2019-02-13 05:27] LABS: BLOOD UREA NITROGEN 10 mg/dL (7-20); CALCIUM 7.6 mg/dL (8.4-10.2); GLUCOSE 94 mg/dL (75-110); POTASSIUM 3.3 mmol/L (3.6-5.0)
[2019-02-13 05:32] LABS: CARBON DIOXIDE 26 mmol/L (22-30); CHLORIDE 111 mmol/L (98-107)
[2019-02-13 05:44] LABS: ANION GAP 4 (5-19)
[2019-02-13] MEDS: HEPARIN SOD (PORCINE) 5,000 UNIT/ML 1 ML VIAL SUBCUT SCH ×3 (06:07→23:40)
[2019-02-13 06:12] LABS: HEMOGLOBIN 10.7 g/dL (13.5-17.0); PLATELET COUNT 91 10^3/uL (150-450)
--- NOTE | 2019-02-13 07:27 | RADIOLOGY REPORT (SQ) ---
EXAM DESCRIPTION: XR CHEST 1 VIEW COMPLETED DATE/TME: 02/13/2019 00:00 CLINICAL HISTORY: 33 years, Male, f/u exam COMPARISON: 02/12/2019 NUMBER OF VIEWS: One TECHNIQUE: AP view of the chest LIMITATIONS: None. FINDINGS: There is worsening consolidation of the left lung with some preservation of the left lung apex. There are patchy consolidations involving the lateral aspect of the right upper and right lower lobes. The heart size is stable. There is no pneumothorax. A left pleural effusion may be present. The bones are unchanged. IMPRESSION: Worsening multifocal pneumonia. copyright 2010 [employer]- All Rights Reserved
[2019-02-13] MEDS ORDERED: DEXMEDETOMIDINE IN 0.9 % NACL 400 MCG/100 ML RTUPB IV PRN (07:56)
[2019-02-13] MEDS ORDERED: INFLUENZA QUAD (6MOS+) 2019-20 VAC 0.5 ML SYR IM ONE (08:00)
[2019-02-13] MEDS: BUDESONIDE NEB 0.5 MG/2 ML AMPUL NEB SCH (08:22)
[2019-02-13 08:34] LABS: ARTERIAL BLOOD BASE EXCESS 1.1 mmol/L; ARTERIAL BLOOD H2CO3 1.02 mmol/L (1.05-1.35); ARTERIAL BLOOD HCO3 24.3 mmol/L (20-24); ARTERIAL BLOOD O2 SATURATION 94.4 % (94-98); ARTERIAL BLOOD PH 7.47 (7.35-7.45); ARTERIAL BLOOD PO2 66.1 mmHg (80-100); ARTERIAL BLOOD TOTAL CO2 25.3 mmol/L (23-27)
[2019-02-13 08:36] LABS: ARTERIAL BLOOD FIO2 FLOW RATE 10
[2019-02-13] MEDS ORDERED: MINERAL OIL/PETROLATUM,WHITE OPH OINT 3.5 GM OU PRN (09:00)
[2019-02-13] MEDS ORDERED: DIAZEPAM 5 MG TABLET PO SCH (09:00)
[2019-02-13] MEDS ORDERED: VANCOMYCIN HCL 0 MG in DEXTROSE 5%-WATER 250 ML IV NR (09:00)
[2019-02-13] MEDS ORDERED: METRONIDAZOLE 500 MG/NS RTU 500 MG/100 ML RTUPB IV SCH (09:00)
[2019-02-13] MEDS ORDERED: ETOMIDATE INJ/PF 20 MG/10 ML SDV IV ONE ×2 (09:01→09:30)
[2019-02-13] MEDS ORDERED: FENTANYL CITRATE INJ/PF 100 MCG/2 ML AMPUL ONE (09:01)
[2019-02-13] MEDS ORDERED: KETAMINE HCL INJ 500 MG/10 ML VIAL IV ONE (09:04)
[2019-02-13] MEDS ORDERED: KETAMINE HCL INJ 500 MG/10 ML VIAL ONE (09:09)
[2019-02-13] MEDS ORDERED: GLYCOPYRROLATE INJ 0.4 MG/2 ML VIAL IV ONE (09:30)
[2019-02-13] MEDS ORDERED: FENTANYL CITRATE INJ/PF 100 MCG/2 ML AMPUL IV ONE ×2 (09:30→20:18)
[2019-02-13] MEDS ORDERED: SUCCINYLCHOLINE CHLORIDE INJ 200 MG/10 ML VIAL IV ONE (09:30)
[2019-02-13] MEDS: PROPOFOL 1,000 MG/100 ML INFUS..BTL IV PRN ×2 (09:32→20:45)
[2019-02-13] MEDS ORDERED: LORAZEPAM INJ 2 MG/1 ML VIAL ONE (09:48)
[2019-02-13] MEDS ORDERED: CEFTRIAXONE SODIUM 2,000 MG in DEXTROSE 5%-WATER 100 ML IV SCH (10:00)
[2019-02-13] MEDS ORDERED: VANCOMYCIN HCL 1,000 MG in DEXTROSE 5%-WATER 250 ML IV SCH (10:00)
[2019-02-13] MEDS ORDERED: VANCOMYCIN HCL 1,500 MG in DEXTROSE 5%-WATER 250 ML IV ONE (10:00)
[2019-02-13] MEDS ORDERED: FOLIC ACID INJ 5 MG/1 ML 10 ML VIAL IV SCH (10:00)
[2019-02-13] MEDS ORDERED: THIAMINE HCL 500 MG in NORMAL SALINE 250 ML IV SCH (10:00)
[2019-02-13 10:24] LABS: INTERNATIONAL RATION (INR) 0.95; PROTHROMBIN TIME 12.7 SEC (11.4-15.4)
[2019-02-13 10:25] LABS: PARTIAL THROMBOPLASTIN TIME 33.5 SEC (23.5-35.8)
--- NOTE | 2019-02-13 10:33 | RADIOLOGY REPORT (SQ) ---
EXAM DESCRIPTION: KUB/ABDOMEN (SINGLE VIEW) COMPLETED DATE/TIME: 02/13/2019 10:21 am REASON FOR STUDY: NG Tube Placement COMPARISON: None. NUMBER OF VIEWS: One view. TECHNIQUE: Supine radiographic image of the upper abdomen acquired. LIMITATIONS: None. FINDINGS: BOWEL GAS PATTERN: Normal bowel gas pattern. No dilated loops. CALCIFICATIONS: No suspicious calcifications. SOFT TISSUES: No gross mass or suggestion of organomegaly. HARDWARE: Nasogastric tube with the tip in the stomach. BONES: No acute fracture. No worrisome bone lesions. OTHER: No other significant finding. IMPRESSION: SATISFACTORY POSITION OF THE NASOGASTRIC TUBE. NO RADIOGRAPHIC EVIDENCE FOR ACUTE ABDOM INAL DISEASE. TECHNICAL DOCUMENTATION: JOB ID: [id number] [employer]- All Rights Reserved Reading location - IP/workstation name: [email or web address]
[2019-02-13] MEDS ORDERED: ALBUMIN HUMAN 500 ML IV ONE (10:34)
--- NOTE | 2019-02-13 10:34 | RADIOLOGY REPORT (SQ) ---
EXAM DESCRIPTION: CHEST SINGLE VIEW COMPLETED DATE/TIME: 02/13/2019 10:22 am REASON FOR STUDY: ET Tube Placement COMPARISON: 02/13/2019 at 0628 hours. EXAM PARAMETERS: NUMBER OF VIEWS: One view. TECHNIQUE: Single frontal radiographic view of the chest acquired. RADIATION DOSE: NA LIMITATIONS: None. FINDINGS: LUNGS AND PLEURA: Extensive dense infiltrate throughout the left lung with patchy infiltra te in the right lung. MEDIASTINUM AND HILAR STRUCTURES: No masses. Contour normal. HEART AND VASCULAR STRUCTURES: Heart normal in size. Normal vasculature. BONES: No acute findings. HARDWARE: Endotracheal tube, tip located 5 cm proximal to the chichi. Nasogastric tube, tip in the s tomach. OTHER: No other significant finding. IMPRESSION: LIFE LINES DESCRIBED. OTHERWISE NO CHANGE IN APPEARANCE OF THE CHEST. TECHNICAL DOCUMENTATION: JOB ID: [id number] [email or web address]- All Rights Reserved Reading location - IP/workstation name: [email or web address]
--- NOTE | 2019-02-13 10:52 | PDOC PROGRESS REPORT ---
Subjective Progress Note for:: 02/13/19 - ICU day 2 Subjective:: Patient noted to be tachypneic and tachycardic. His oxygen saturation has improved but respiratory rate has worsened. He is slightly confused. Blood pre ssures are in the low 90s systolically. He denies any complaints. His mother states that the patient has been extremely depressed recently. Reason For Visit: PNEUMONIA,ACUTE HYPOXIC RESPIRATORY FAILURE,SIRS Physical Exam Vital Signs: Temp Pulse Resp BP Pulse Ox 98.8 F 126 H 46 H 92/66 L 98 02/13/19 08:00 02/13/19 08:25 02/13/19 08:25 02/13/19 08:00 02/13/19 08:25 Pulse Oximeter Continuous Start: 02/12/19 06:14 Freq: RTQ4 Status: Complete Protocol: Document 02/12/19 10:31 [facility] (Rec: 02/12/19 10:32 [facility] [email or web address]) Pulse Oximetry Assessment Equipment Usage Equipment Standby Continuous SpO2 Machine # na Intake & Output 02/12/19 02/13/19 02/14/19 06:59 06:59 06:59 Intake Total 1050 4947 Output Total 1700 0 Balance 1050 3247 0 Weight 71.4 kg 73.1 kg Physical Exam: 33-year-old white male not intubated on BiPAP and acute moderate respiratory distress, nontoxic General appearance: PRESENT: cooperative, disheveled, well-developed, well- nourished Head exam: PRESENT: atraumatic, normocephalic Eye exam: PRESENT: conjunctival injection, nystagmus - After intubation, PERRLA. ABSENT: scleral icterus Ear exam: PRESENT: normal external ear exam Mouth exam: PRESENT: dry mucosa, neck supple, tongue midline, other - Extremely dry lips Teeth exam: PRESENT: other - Teeth intact. Mallampati 1, Thyromental distance 3 cm, Oral aperature 3 FB. Throat exam: ABSENT: post pharyngeal erythema, tonsillar erythema, tonsillar exudate, tonsillogmegaly Neck exam: PRESENT: full ROM. ABSENT: carotid bruit, JVD, lymphadenopathy, meningismus, tenderness, thyromegaly, tracheal deviation Respiratory exam: PRESENT: accessory muscle use, crackles, retraction, rhonchi, tachypnea. ABSENT: unlabored - labored on BiPap Cardiovascular exam: PRESENT: +S1, +S2, tachycardia Pulses: PRESENT: normal carotid pulses, +2 pedal pulses bilateral Vascular exam: PRESENT: normal capillary refill GI/Abdominal exam: PRESENT: hypoactive bowel sounds, soft. ABSENT: ascites, diminished bowel sounds, distended, firm, guarding, mass, Sharma's sign, organolmegaly, rebound, rigid, tenderness Rectal exam: PRESENT: deferred Gentrourinary exam: ABSENT: indwelling catheter Extremities exam: ABSENT: pedal edema Musculoskeletal exam: ABSENT: deformity, dislocation, normal inspection - Has grade 2-3 tissue loss on right proximal forearm, with scab. Additional superficial abrasion to right forearm, right lower extremity. Present on admission Neurological exam: PRESENT: altered, oriented to person, CN II-XII grossly intact. ABSENT: motor sensory deficit - Confused. Mild tremor and asterixis. Psychiatric exam: PRESENT: agitated Focused psych exam: PRESENT: psychomotor agitation, restlessness Skin exam: PRESENT: abrasion, other - See extremity exam above Results Laboratory Results: 02/13/19 04:52 02/13/19 04:52 02/12/19 02/13/19 02/13/19 22:20 04:52 04:52 WBC 4.9 RBC 3.36 L Hgb 10.7 L D Hct 34.0 L MCV 101 H MCH 31.9 MCHC 31.5 L RDW 13.8 Plt Count 91 L Carbonic Acid 0.96 L HCO3/H2CO3 Ratio 24:1 ABG pH 7.48 H ABG pCO2 31.9 L ABG pO2 57.9 L ABG HCO3 23.3 ABG O2 Saturation 92.2 L ABG Base Excess 0.4 FiO2 FLOW RATE 10 Sodium 141.4 Potassium 3.3 L Chloride 111 H Carbon Dioxide 26 Anion Gap 4 L BUN 10 Creatinine 0.76 Est GFR ( Amer) > 60 Glucose 94 Calcium 7.6 L 02/13/19 08:28 WBC RBC Hgb Hct MCV MCH MCHC RDW Plt Count Carbonic Acid 1.02 L HCO3/H2CO3 Ratio 23:1 ABG pH 7.47 H ABG pCO2 34.0 L ABG pO2 66.1 L ABG HCO3 24.3 H ABG O2 Saturation 94.4 ABG Base Excess 1.1 FiO2 FLOW RATE 10 Sodium Potassium Chloride Carbon Dioxide Anion Gap BUN Creatinine Est GFR ( Amer) Glucose Calcium Impressions: Chest X-Ray 02/13/19 00:00 IMPRESSION: Worsening multifocal pneumonia. copyright 2010 [employer]- All Rights Reserved Assessment & Plan - Diagnosis (1) Acute respiratory failure with hypoxia Is this a current diagnosis for this admission?: Yes Plan: Patient to be intubated. Follow a low tidal volume strategy, recheck ABG, obtain Gram stain and cultures. (2) Aspiration pneumonia due to gastric secretions Qualifiers: Laterality: bilateral Lung location: unspecified part of lung Qualified Code(s): J69.0 - Pneumonitis due to inhalation of food and vomit Is this a current diagnosis for this admission?: Yes Plan: Mother relates that the patient may have been short of breath for some time. This raises a concern for community-acquired with complex microorganisms. I have broadened his antibiotics to meropenem and vancomycin to cover both aerobic, anaerobic and possible MRSA given his significant alcohol use. (3) Delirium due to another medical condition, acute, mixed level of activity Is this a current diagnosis for this admission?: Yes Plan: Patient will be started on propofol and thiamine as well as folate and nutritional support (4) Acute metabolic encephalopathy Is this a current diagnosis for this admission?: Yes Plan: We will check ammonia level. His stepfather says that the patient had used hero in in the past. He does not feel that he is currently using. (5) Alcohol abuse Is this a current diagnosis for this admission?: Yes (6) Alcohol withdrawal delirium Is this a current diagnosis for this admission?: Yes Plan: As noted above we will start thiamine @ high-dose, folate and nutritional support (7) Dehydration Is this a current diagnosis for this admission?: Yes Plan: Replace volume with LR or pH balance solution (8) Electrolyte and fluid disorder Is this a current diagnosis for this admission?: Yes Plan: Patient is at high risk for hypomagnesemia and hypokalemia. He has low potassium this morning and this is been replaced. (9) Skin abrasion Is this a current diagnosis for this admission?: Yes Plan: Was present on admission. Significant near full-thickness on the right forearm. Will start with Silvadene and wound care. - Time Time Spent with patient: 35 or more minutes Total Critical Time (Minutes): 90 Medications reviewed and adjusted accordingly: Yes Disposition: Remain in ICU on full mechanical ventilation support - Inpatient Certification Based on my medical assessment, after consideration of the patient's comorbidities, presenting symptoms, or acuity I expect that the services needed warrant INPATIENT care.: Yes I certify that my determination is in accordance with my understanding of Medicare's requirements for reasonable and necessary INPATIENT services [42 CFR 412.3e].: Yes Medical Necessity: Significant Comorbidiites Make Outpatient Treatment Too Risky, Need Close Monitoring Due to Risk of Patient Decompensation, Need For IV Fluids, Need For Continuous Telemetry Monitoring, Need for Neurological Checks 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 Care of in ICU patient is ongoing and dynamic. This note represents a static representation of ongoing care in the last 24 hours. Was given completed and entered via computer are not always reflective of actual time done. Medical power of insurance attorney is: Mother Patient requires ICU care secondary to acute respiratory distress with hypoxia, alcohol withdrawal related delirium and encephalopathy, metabolic
--- NOTE | 2019-02-13 11:07 | Progress Note ---
Provider Note Provider Note: Procedure Procedure: Urgent intubation Preprocedure diagnosis: Hypoxic respiratory failure Postprocedure diagnosis: Same, with dehydration Proceduralist: DO KAMRON Gibson Assistants: Respiratory therapy and ICU nursing staff Complications: None Estimated blood loss: None Anesthesia: Rapid sequence with 100 mcg of fentanyl, 20 mg of etomidate, 100 mg succinylcholine Findings: Perla Marysol grade 1, thyromental distance: 3 cm, oral aperture: 3 finger-breadths, dry mucous membranes, grade 1 view with Ora 3 blade, easy mask, easy bag. Chest x-ray shows tip 3 cm above chichi. Patient was appropriate identified secondary to ongoing critical care chart check and name bracelet. His family was notified of the situation prior to the procedure. Appropriate adjunct of equipment was immediately available and prepared for any complicated airway scenario. Patient was preoxygenated and maintained on BiPAP during induction. Given 100 mcg of fentanyl as a pre-induction analgesia anxiolytic This was followed by 20 mg of etomidate and 100 mg of succinylcholine. Patient achieved blockade within 40 seconds. A direct laryngoscopy was done which showed extremely dry mucous membranes and tongue. A grade 1 view was noted with a Ora 3 blade. Patient tolerated the procedure well there were no complications. Chest x-ray shows ET tube in appropriate position This procedure excludes critical care time
[2019-02-13] MEDS: FAMOTIDINE 20 MG TABLET PO SCH ×2 (11:30→23:29)
[2019-02-13] MEDS ORDERED: FOLIC ACID 1 MG in NORMAL SALINE 50 ML IV SCH (12:00)
[2019-02-13] MEDS: ALBUTEROL SULFATE 0.083% NEB 2.5 MG/3 ML AMPUL NEB SCH ×3 (12:25→20:21)
[2019-02-13] MEDS: POTASSI CL 20 MEQ/50 ML RIDER 20 MEQ/50 ML RTUPB IV SCH ×2 (13:06→15:30)
[2019-02-13] MEDS: MEROPENEM 1 GM in NORMAL SALINE 50 ML IV SCH ×3 (13:15→23:15)
[2019-02-13] MEDS: THIAMINE HCL 500 MG, FOLIC ACID 1 MG in NORMAL SALINE 250 ML IV SCH (13:15)
[2019-02-13] MEDS: SILVER SULFADIAZINE 1% CREAM 400 GM TP SCH ×2 (13:16→18:23)
[2019-02-13] MEDS ORDERED: DEXMEDETOMIDINE IN 0.9 % NACL 400 MCG/100 ML RTUPB IV ONE (13:43)
[2019-02-13] MEDS ORDERED: HYDROMORPHONE HCL INJ/PF 2 MG/ML AMPULE IV PRN ×2 (13:46→13:47)
[2019-02-13] MEDS: DEXMEDETOMIDINE IN 0.9 % NACL 400 MCG/100 ML RTUPB IV PRN ×2 (14:12→23:30)
[2019-02-13] MEDS ORDERED: LORAZEPAM INJ 2 MG/1 ML VIAL IV ONE (14:30)
[2019-02-13] MEDS: RINGERS SOLUTION,LACTATED 1,000 ML IV PRN (14:30)
[2019-02-13] MEDS ORDERED: QUETIAPINE FUMARATE 25 MG TABLET PO SCH (15:00)
[2019-02-13 15:35] LABS: BLOOD UREA NITROGEN 12 mg/dL (7-20); CARBON DIOXIDE 26 mmol/L (22-30); CREATINE KINASE 76 U/L (55-170); POTASSIUM 3.9 mmol/L (3.6-5.0)
[2019-02-13] MEDS ORDERED: POTASSI CL 20 MEQ/50 ML RIDER 20 MEQ/50 ML RTUPB IV ONE (15:37)
[2019-02-13 15:38] LABS: ARTERIAL BLOOD BASE EXCESS -0.4 mmol/L; ARTERIAL BLOOD HCO3 23.7 mmol/L (20-24); ARTERIAL BLOOD O2 SATURATION 93.9 % (94-98); ARTERIAL BLOOD PCO2 36.6 mmHg (35-45); ARTERIAL BLOOD PH 7.43 (7.35-7.45); ARTERIAL BLOOD TOTAL CO2 24.8 mmol/L (23-27)
[2019-02-13 15:42] LABS: ARTERIAL BLOOD FIO2 100%
--- NOTE | 2019-02-13 15:57 | RADIOLOGY REPORT (SQ) ---
EXAM DESCRIPTION: CHEST SINGLE VIEW COMPLETED DATE/TIME: 02/13/2019 3:47 pm REASON FOR STUDY: line placement COMPARISON: 02/13/2019 at 1009 hours. EXAM PARAMETERS: NUMBER OF VIEWS: One view. TECHNIQUE: Single frontal radiographic view of the chest acquired. RADIATION DOSE: NA LIMITATIONS: None. FINDINGS: LUNGS AND PLEURA: Continued extensive infiltrate throughout the left lung and patchy infil trate in the right lung. No pneumothorax. MEDIASTINUM AND HILAR STRUCTURES: No masses. Contour normal. HEART AND VASCULAR STRUCTURES: Heart normal in size. Normal vasculature. BONES: No acute findings. HARDWARE: Central line on the right side. Tip at the level of the superior vena cava. Stable endotr acheal tube and nasogastric tube. OTHER: No other significant finding. IMPRESSION: INTERVAL CENTRAL LINE PLACEMENT. NO PNEUMOTHORAX. OTHERWISE NO CHANGE. TECHNICAL DOCUMENTATION: JOB ID: [id number] [employer]- All Rights Reserved Reading location - IP/workstation name: [email or web address]
--- NOTE | 2019-02-13 16:31 | XCELERA REPORT ---
[address] [address] Transthoracic Echocardiogram Report Name: EUGENIO LICEA Age: 33 yrs Gender: Male : 1985 Patient Status: Inpatient Patient Location: ICU^609^A Study Date: 02/13/2019 11:10 AM Height: 69 in Weight: 161 lb BSA: 1.9 m2 Procedure: A two-dimensional transthoracic echocardiogram with color flow and Doppler was performed. The study was technically difficult with many images being suboptimal in quality. Reason For Study: endocarditis History: endocarditis. Ordering Physician: MEY GREEN Performed By: Angelic Tiwari Interpretation Summary No vegetations or evidence of endocarditis seen.Corelate clinically. The left ventricle is normal in size. There is normal left ventricular wall thickness. Thre is tachycardia and normal LV contractility with no regional wall motion abnormality. LV EF is > than 60% Doppler measurements suggest normal left ventricular diastolic function There is no thrombus. No ASD ,VSD ,or PFO seen. The right ventricle is not well visualized secondary to technical limitations The right atrium is normal. The left atrial size is normal. There is no evidence of mitral valve prolapse. There is no vegetation seen on the mitral valve. There is no mitral valve stenosis. There is a trace amount of mitral regurgitation There is no aortic valvular vegetation. There is no aortic valve stenosis No aortic regurgitation is present. There is no tricuspid stenosis. There is a mild amount of tricuspid regurgitation There is mild pulmonary hypertension by echo RVSP is 41 mm of Hg , with RA mean of 10/ There is no pulmonic valvular stenosis. The aortic root is normal size. The inferior vena cava appeared normal and decreased > 50% with respiration (RAP 5-10 mmHg) There is no pericardial effusion. No vegetations or evidence of endocarditis seen.Corelate clinically. MMode/2D Measurements & Calculations RVDd: 3.2 cm LVIDd: 4.3 cm FS: 36.3 % Ao root diam: 3.0 cm IVSd: 0.96 cm LVIDs: 2.7 cm EDV(Teich): 83.2 ml Ao root area: 7.2 cm2 LVPWd: 1.0 cm ESV(Teich): 28.1 ml LA dimension: 2.9 cm EF(Teich): 66.3 % Doppler Measurements & Calculations MV E max maurilio: MV P1/2t max maurilio: Ao V2 max: LV V1 max P.0 cm/sec 71.7 cm/sec 104.5 cm/sec 4.1 mmHg MV A max maurilio: MV P1/2t: 41.9 msec Ao max P.4 mmHg LV V1 max: 67.5 cm/sec MVA(P1/2t): 5.2 cm2 101.4 cm/sec MV E/A: 1.1 MV dec slope: 501.0 cm/sec2 MV dec time: 0.14 sec PA V2 max: TR max maurilio: MV P1/2t-pr_phl: 80.9 cm/sec 278.3 cm/sec 41.9 msec PA max PG: TR max P.0 mmHg 2.6 mmHg Left Ventricle The left ventricle is normal in size. There is normal left ventricular wall thickness. Thre is tachycardia and normal LV contractility with no regional wall motion abnormality. LV EF is > than 60%. Doppler measurements suggest normal left ventricular diastolic function. There is no thrombus. No ASD ,VSD ,or PFO seen. Right Ventricle The right ventricle is not well visualized secondary to technical limitations. Atria The right atrium is normal. The left atrial size is normal. Mitral Valve There is no evidence of mitral valve prolapse. There is no vegetation seen on the mitral valve. There is no mitral valve stenosis. There is a trace amount of mitral regurgitation. Aortic Valve There is no aortic valvular vegetation. There is no aortic valve stenosis. No aortic regurgitation is present. Tricuspid Valve There is no tricuspid stenosis. There is a mild amount of tricuspid regurgitation. There is mild pulmonary hypertension by echo. RVSP is 41 mm of Hg , with RA mean of 10/. Pulmonic Valve There is no pulmonic valvular stenosis. There is a trace amount of pulmonic regurgitation. Great Vessels The aortic root is normal size. The inferior vena cava appeared normal and decreased > 50% with respiration (RAP 5-10 mmHg). Effusions There is no pericardial effusion. : MEY GREEN Lakshmi
[2019-02-13 16:40] LABS: CALCIUM 7.5 mg/dL (8.4-10.2); CHLORIDE 107 mmol/L (98-107); GLUCOSE 80 mg/dL (75-110); PHOSPHORUS 2.7 mg/dL (2.5-4.5)
[2019-02-13 16:41] LABS: ANION GAP 3 (5-19)
--- NOTE | 2019-02-13 18:18 | Operative Report ---
Bedside Procedure - History of Present Illness History of Present Illness: This patient is a 33 yo man admitted earlier today with a L pnemonia and sepsis. While on the medical floor he coughed and wretched several times and became markedly tachycardic up to 140-50 range and tachypnic. He seems to be mentating well for now but seems tired. His CXR show PNA is dense and a burgeoning infiltrate on RLL C/W aspiration in addition to CAP and sepsis. He will need to in the ICU for intubation potential and bipap to decrease his work of breathing. Continue abx anf IVF. Indication for Procedure: Sepsis, need for central access Date: 02/13/19 Surgeon: MEY GREEN - Central Line Right Subclavian Time completed: 11:00 Consent obtained: Yes - Mother not available. Step-father made aware Central line pre-insertion: Sterile PPE donned, Chloraprep applied, Sterile drapes applied Central line size (Fr.): 7 Central line lumen type: Triple Ultrasound guided: Yes - No pneumothorax on US after procedure. Wire seen in right subclavian vein CM at insertion site: 15 Line secured with sutures: Yes Central line post-insertion: Blood return from lumens, Biopatch applied, Sutured, Sterile dressing applied, Position confirmed w/ CXR, Other Number of attempts: 1 Complications: No
[2019-02-13] MEDS ORDERED: NORMAL SALINE INJ/PF 0.9% 10 ML SDV IV PRN (18:19)
[2019-02-13] MEDS: VANCOMYCIN HCL 1,000 MG in DEXTROSE 5%-WATER 250 ML IV SCH (18:23)
--- NOTE | 2019-02-13 18:29 | Progress Note ---
Provider Note Provider Note: ProcedureProcedure Procedure: Right radial arterial catheter Preprocedure diagnosis: Hypoxic respiratory failure Postprocedure diagnosis: Same, with dehydration Proceduralist: DO Paige [facility] Assistants: ICU nursing staff Complications: None Estimated blood loss: 10 cc Anesthesia: conscious sedation while on ventilator Patient was appropriately identified second ongoing critical care chart check name adams. Timeout was called. Wrist was chosen a site of access secondary to anatomical preference. Family could not be contacted for consent. Right wrist was prepped and draped with chlorhexidine allowed to dry. Using regional sterile barrier precautions and and sterile gloves as well as gown a first attempt with a 20-gauge catheter/wire in situ was attempted. Unfortunately the patient's skin was unable to allow for the catheter to be used in a Seldinger needle was then used. When the needle was placed, arterial blood flow was noted. Wire was placed without difficulty. The needle was then removed and a 20-gauge catheter was then inserted over wire using typical Seldinger technique. The wire was then removed and after removal pulsatile blood flow was noted and was allowed to occur for 3-4 heartbeats to allow for clearing of debris. The catheter was sutured in place and affixed to transducer tubing. Good biphasic waveform was noted. Tolerated procedure well. No complications. Procedure excludes critical care time
[2019-02-13] MEDS ORDERED: NOREPINEPHRINE BITARTRATE INJ/PF 4 MG/4 ML SDV IV ONE (19:24)
[2019-02-13] MEDS ORDERED: DEXTROSE 5%-WATER 250 ML with NOREPINEPHRINE BITARTRATE 4 MG IV PRN ×2 (19:35)
[2019-02-13] MEDS ORDERED: ACETAMINOPHEN SOLN 325 MG/10.15 ML UDCUP PO ONE (20:10)
--- NOTE | 2019-02-13 20:15 | RADIOLOGY REPORT (SQ) ---
EXAM DESCRIPTION: KUB/ABDOMEN (SINGLE VIEW) COMPLETED DATE/TIME: 02/13/2019 7:36 pm REASON FOR STUDY: tube placement COMPARISON: KUB and chest radiographs earlier performed on 02/13/2019 NUMBER OF VIEWS: One view. TECHNIQUE: Supine radiographic image of the abdomen acquired. LIMITATIONS: None. FINDINGS: BOWEL GAS PATTERN: Normal bowel gas pattern. No dilated loops. CALCIFICATIONS: No suspicious calcifications. SOFT TISSUES: No gross mass or suggestion of organomegaly. HARDWARE: Subdiaphragmatic course and enteric tube with the tip projecting over the mid left abdomen. BONES: No acute fracture. No worrisome bone lesions. OTHER: Patchy right basilar opacities and left lung consolidation, unchanged. IMPRESSION: Lines and tubes as above. Nonobstructive bowel gas pattern. TECHNICAL DOCUMENTATION: JOB ID: [id number] [employer]- All Rights Reserved Reading location - IP/workstation name: [email or web address]
[2019-02-13] MEDS ORDERED: FENTANYL CITRATE/PF 600 MCG/60 ML BAG IV PRN (20:24)
--- NOTE | 2019-02-13 20:26 | Progress Note ---
Provider Note Provider Note: Patient developed hypotension. His tachycardia has improved with volume resuscitation. His blood pressure has improved with volume however he now requires levophed. He has had significant temperature elevation. Is occurred sometime after the use of succinylcholine however a repeat examination to look for evidence of malignant hyperthermia did not show any evidence to support this. Is following commands. He does not show any nuchal or muscular rigidity. His PCO2 is responding appropriately to ventilation. He had no jaw trismus or fasciculations as well. There is no evidence of meningitis. His neck is supple he is able to lift it from the bed despite being intubated. He does have significant amount of secretions and have asked for Gram stain and culture to be taken from the endotracheal tube. Lengthy discussion with his family and discussed with him the sepsis and ARDS that the patient is undergoing. Patients of this age group often mount a very significant inflammatory response and literature supports the use of steroids to help suppress this. I have also discontinued any medications that could be a problem such as Seroquel. Shows no signs of clonus or serotonin-like symptoms. Has been significant amount of time with repeat examinations. We will continue to provide supportive care. Family updated. Total time 60 minutes
[2019-02-13] MEDS: HYDROCORTISONE SOD SUCCINATE INJ/PF 100 MG/2 ML SDV IV SCH (20:28)
[2019-02-13] MEDS: ALBUMIN HUMAN 12.5 GM/50 ML RTUINJ IV SCH ×3 (20:45→23:49)
[2019-02-13 22:06] LABS: ARTERIAL BLOOD BASE EXCESS 0.6 mmol/L; ARTERIAL BLOOD H2CO3 1.01 mmol/L (1.05-1.35); ARTERIAL BLOOD HCO3 24.2 mmol/L (20-24); ARTERIAL BLOOD O2 SATURATION 94.7 % (94-98); ARTERIAL BLOOD PCO2 33.5 mmHg (35-45); ARTERIAL BLOOD PH 7.48 (7.35-7.45); ARTERIAL BLOOD TOTAL CO2 25.2 mmol/L (23-27)
[2019-02-13 22:12] LABS: BLOOD UREA NITROGEN 16 mg/dL (7-20); CALCIUM 7.6 mg/dL (8.4-10.2); GLUCOSE 94 mg/dL (75-110); PHOSPHORUS 1.7 mg/dL (2.5-4.5); POTASSIUM 3.7 mmol/L (3.6-5.0)
[2019-02-13 22:14] LABS: ARTERIAL BLOOD FIO2 100%
[2019-02-13 22:15] LABS: CREATINE KINASE < 20 U/L (55-170)
[2019-02-13 22:17] LABS: ANION GAP 5 (5-19); CARBON DIOXIDE 25 mmol/L (22-30); CHLORIDE 106 mmol/L (98-107)
[2019-02-14] MEDS: ALBUTEROL SULFATE 0.083% NEB 2.5 MG/3 ML AMPUL NEB SCH ×7 (00:07→23:57)
[2019-02-14] MEDS: ALBUMIN HUMAN 12.5 GM/50 ML RTUINJ IV SCH (00:36)
[2019-02-14] MEDS: VANCOMYCIN HCL 1,000 MG in DEXTROSE 5%-WATER 250 ML IV SCH ×3 (02:40→17:51)
[2019-02-14] MEDS: MEROPENEM 1 GM in NORMAL SALINE 50 ML IV SCH ×3 (05:44→21:26)
[2019-02-14] MEDS: HYDROCORTISONE SOD SUCCINATE INJ/PF 100 MG/2 ML SDV IV SCH ×3 (05:44→21:27)
[2019-02-14] MEDS ORDERED: CEFTRIAXONE 2 GM/D5W RTU 2 GM/50 ML RTUPB IV SCH (06:00)
[2019-02-14] MEDS: DEXMEDETOMIDINE IN 0.9 % NACL 400 MCG/100 ML RTUPB IV PRN ×5 (06:21→21:29)
[2019-02-14 06:22] LABS: ARTERIAL BLOOD BASE EXCESS 0.1 mmol/L; ARTERIAL BLOOD H2CO3 1.06 mmol/L (1.05-1.35); ARTERIAL BLOOD HCO3 23.7 mmol/L (20-24); ARTERIAL BLOOD O2 SATURATION 96.8 % (94-98); ARTERIAL BLOOD PCO2 35.3 mmHg (35-45); ARTERIAL BLOOD PH 7.45 (7.35-7.45); ARTERIAL BLOOD PO2 84.3 mmHg (80-100); ARTERIAL BLOOD TOTAL CO2 24.8 mmol/L (23-27)
[2019-02-14 06:23] LABS: ARTERIAL BLOOD FIO2 75%
[2019-02-14] MEDS: PROPOFOL 1,000 MG/100 ML INFUS..BTL IV PRN ×3 (06:26→21:29)
[2019-02-14 06:27] LABS: HEMATOCRIT 30.9 % (37.9-51.0); HEMOGLOBIN 10.5 g/dL (13.5-17.0); MEAN CORPUSCULAR HEMOGLOBIN 34.8 pg (27.0-33.4); MEAN CORPUSCULAR HGB CONC 34.2 g/dL (32.0-36.0); MEAN CORPUSCULAR VOLUME 102 fl (80-97); PLATELET COUNT 117 10^3/uL (150-450); RED BLOOD COUNT 3.03 10^6/uL (4.35-5.55); RED CELL DISTRIBUTION WIDTH 13.9 % (11.5-14.0)
[2019-02-14 06:29] LABS: PARTIAL THROMBOPLASTIN TIME 29.8 SEC (23.5-35.8); PROTHROMBIN TIME 14.2 SEC (11.4-15.4)
[2019-02-14] MEDS: HEPARIN SOD (PORCINE) 5,000 UNIT/ML 1 ML VIAL SUBCUT SCH ×3 (06:45→21:27)
[2019-02-14 06:47] LABS: ALBUMIN 2.2 g/dL (3.5-5.0); ALKALINE PHOSPHATASE 58 U/L (38-126); ANION GAP 6 (5-19); ASPARTATE AMINO TRANSFERASE 51 U/L (17-59); BILIRUBIN,DIRECT 4.2 mg/dL (0.0-0.4); BILIRUBIN,TOTAL 5.1 mg/dL (0.2-1.3); BLOOD UREA NITROGEN 13 mg/dL (7-20); CALCIUM 7.6 mg/dL (8.4-10.2); CARBON DIOXIDE 25 mmol/L (22-30); CHLORIDE 107 mmol/L (98-107); GLUCOSE 122 mg/dL (75-110); TOTAL PROTEIN 4.5 g/dL (6.3-8.2)
[2019-02-14 06:48] LABS: WHITE BLOOD COUNT 12.9 10^3/uL (4.0-10.5)
[2019-02-14 06:51] LABS: ABSOLUTE LYMPHOCYTES# (MANUAL) 0.8 10^3/uL (0.5-4.7); ABSOLUTE MONOCYTES # (MANUAL) 0.5 10^3/uL (0.1-1.4); BASOPHILS % (MANUAL) 0 % (0-2); EOSINOPHILS % (MANUAL) 0 % (0-6); LYMPHOCYTES % (MANUAL) 6 % (13-45); METAMYELOCYTES % (MANUAL) 2 % (0); MONOCYTES % (MANUAL) 4 % (3-13); NUCLEATED RED BLOOD CELLS 1 /100 WBC (0); SEGMENTED NEUTROPHILS % (MAN) 76 % (42-78); TOTAL CELLS COUNTED 100
[2019-02-14 06:52] LABS: PLATELET COMMENT ADEQUATE; TARGET CELLS 2+
[2019-02-14 06:53] LABS: BAND NEUTROPHILS % (MANUAL) 12 % (3-5)
[2019-02-14 07:11] LABS: PHOSPHORUS 4.3 mg/dL (2.5-4.5)
[2019-02-14] MEDS: RINGERS SOLUTION,LACTATED 1,000 ML IV PRN (07:29)
--- NOTE | 2019-02-14 08:58 | RADIOLOGY REPORT (SQ) ---
EXAM DESCRIPTION: CHEST SINGLE VIEW COMPLETED DATE/TIME: 02/14/2019 6:08 am REASON FOR STUDY: aspiration pneumonia COMPARISON: None. EXAM PARAMETERS: NUMBER OF VIEWS: One view. TECHNIQUE: Single frontal radiographic view of the chest acquired. RADIATION DOSE: NA LIMITATIONS: None. FINDINGS: LUNGS AND PLEURA: Unchanged radiographic appearance of the chest with dense consolidation throughout the left lung with interspersed bronchograms that obscures the contour of the left hemidia phragm and blunts the left costophrenic sulcus and patchy airspace opacities on the contralateral buster e. MEDIASTINUM AND HILAR STRUCTURES: Stable mediastinal and hilar contours. HEART AND VASCULAR STRUCTURES: The cardiac silhouette is partially obscured. BONES: No acute findings. HARDWARE: The tip of the endotracheal tube projects above the chichi. The the tip of the enteric tub e projects past the gastroesophageal junction and outside the field of view of the radiograph. The t ip of the right-sided central venous catheter projects within the SVC. OTHER: No other significant finding. IMPRESSION: 1. Tubes and lines as above. 2. Unchanged radiographic appearance of the chest as detailed above. TECHNICAL DOCUMENTATION: JOB ID: [id number] [employer]- All Rights Reserved Reading location - IP/workstation name: [email or web address]
[2019-02-14] MEDS ORDERED: FENTANYL CITRATE INJ/PF 100 MCG/2 ML AMPUL IV ONE ×2 (09:16→18:00)
[2019-02-14] MEDS ORDERED: RINGERS SOLUTION,LACTATED 1,000 ML IV PRN (09:17)
[2019-02-14 09:37] LABS: PATH REVIEW PATHOLOGIST REVIEWED
[2019-02-14] MEDS: THIAMINE HCL 500 MG, FOLIC ACID 1 MG in NORMAL SALINE 250 ML IV SCH (09:41)
[2019-02-14] MEDS: FAMOTIDINE 20 MG TABLET PO SCH ×2 (09:47→21:28)
[2019-02-14] MEDS: QUETIAPINE FUMARATE 25 MG TABLET PO SCH ×2 (09:52→21:28)
[2019-02-14] MEDS: SILVER SULFADIAZINE 1% CREAM 400 GM TP SCH ×2 (10:25→17:25)
[2019-02-14] MEDS: FUROSEMIDE INJ/PF 20 MG/2 ML SDV IV SCH ×2 (10:53→21:27)
--- NOTE | 2019-02-14 13:55 | PDOC PROGRESS REPORT ---
Subjective Progress Note for:: 02/14/19 Subjective:: 02.14.19: Patient's condition has improved but he is still critical. Retention has resolved and he is now weaned off levophed. He was started on Solu-Cortef because of the inflammatory response in for a cortisol level of 10. On sedation wean he does completely respond and follow commands. His tachycardia has improved and his temperature profile has reduced. Critical care ultrasound was done to evaluate fluid status. His IVC is dilated and does not have respi rophasic changes. He appears adequately volume resuscitated. 02.13.19: Patient noted to be tachypneic and tachycardic. His oxygen saturation has improved but respiratory rate has worsened. He is slightly confused. Blood pressures are in the low 90s systolically. He denies any complaints. His mother states that the patient has been extremely depressed recently. Reason For Visit: PNEUMONIA,ACUTE HYPOXIC RESPIRATORY FAILURE,SIRS Physical Exam Vital Signs: Temp Pulse Resp BP Pulse Ox 102.6 F H 99 28 H 94/68 L 95 02/13/19 16:00 02/14/19 08:07 02/14/19 08:07 02/14/19 07:13 02/14/19 08:07 Pulse Oximeter Continuous Start: 02/12/19 06:14 Freq: RTQ4 Status: Complete Protocol: Document 02/12/19 10:31 [facility] (Rec: 02/12/19 10:32 [facility] [email or web address]) Pulse Oximetry Assessment Equipment Usage Equipment Standby Continuous SpO2 Machine # na Intake & Output 02/13/19 02/14/19 02/15/19 06:59 06:59 06:59 Intake Total 4977 9587 Output Total 1700 1285 Balance 3247 632 Weight 73.1 kg 75.2 kg Physical Exam: Intubated less toxic appearing 33-year-old male no active distress except when weaned off propofol. General appearance: PRESENT: no acute distress, thin, well-developed Eye exam: PRESENT: conjunctival injection, conjunctiva pink, PERRLA. ABSENT: nystagmus, periorbital swelling, scleral icterus Mouth exam: PRESENT: moist, neck supple Neck exam: ABSENT: carotid bruit, JVD, lymphadenopathy, meningismus, thyromegaly, tracheal deviation Additional comments: Right subclavian central venous catheter clean dry intact without erythema or hematoma Respiratory exam: PRESENT: crackles, rhonchi - On left.. ABSENT: accessory muscle use, unlabored, wheezes Additional comments: Critical care ultrasound of the lungs shows a small pleural effusion. Patient has "shred" sign indicative of pulmonary consolidation secondary to pneumonia. Cardiovascular exam: PRESENT: +S1, +S2, tachycardia - Much improved. Less than 110/. ABSENT: rubs, systolic murmur Pulses: PRESENT: +2 pedal pulses bilateral Vascular exam: PRESENT: normal capillary refill GI/Abdominal exam: PRESENT: hypoactive bowel sounds, soft. ABSENT: ascites, diminished bowel sounds, distended, firm, guarding, hernia, mass, Sharma's sign, organolmegaly, rebound, rigid, tenderness Rectal exam: PRESENT: deferred Gentrourinary exam: PRESENT: indwelling catheter Extremities exam: ABSENT: joint swelling Musculoskeletal exam: PRESENT: normal inspection. ABSENT: deformity, dislocation Neurological exam: PRESENT: altered. ABSENT: motor sensory deficit Focused psych exam: PRESENT: psychomotor agitation, restlessness - Off propofol Skin exam: PRESENT: abrasion, normal color. ABSENT: cyanosis, erythema, jaundice, mottled, pallor, petechiae, urticaria, vesicles Additional comments: Patient has significant abrasions to the right anterior lower leg. He also has significant abrasion with superficial skin avulsion right medial forearm. Results Laboratory Results: 02/14/19 06:07 02/14/19 06:07 02/13/19 02/13/19 02/13/19 04:52 08:28 10:06 WBC RBC Hgb Hct MCV MCH MCHC RDW Plt Count Seg Neutrophils % Carbonic Acid 1.02 L HCO3/H2CO3 Ratio 23:1 ABG pH 7.47 H ABG pCO2 34.0 L ABG pO2 66.1 L ABG HCO3 24.3 H ABG O2 Saturation 94.4 ABG Base Excess 1.1 FiO2 FLOW RATE 10 Sodium Potassium Chloride Carbon Dioxide Anion Gap BUN Creatinine Est GFR ( Amer) Glucose Lactic Acid Calcium Phosphorus Magnesium Total Bilirubin AST Alkaline Phosphatase Ammonia 16.7 Total Protein Albumin Triglycerides 144 02/13/19 02/13/19 02/13/19 10:06 10:06 10:06 WBC RBC Hgb Hct MCV MCH MCHC RDW Plt Count Seg Neutrophils % Carbonic Acid HCO3/H2CO3 Ratio ABG pH ABG pCO2 ABG pO2 ABG HCO3 ABG O2 Saturation ABG Base Excess FiO2 Sodium Potassium Chloride Carbon Dioxide Anion Gap BUN Creatinine Est GFR ( Amer) Glucose Lactic Acid 2.4 H Calcium Phosphorus 3.2 Magnesium 2.1 Total Bilirubin AST Alkaline Phosphatase Ammonia Total Protein Albumin Triglycerides 02/13/19 02/13/19 02/13/19 14:50 14:50 15:24 WBC RBC Hgb Hct MCV MCH MCHC RDW Plt Count Seg Neutrophils % Carbonic Acid 1.10 HCO3/H2CO3 Ratio 21:1 ABG pH 7.43 ABG pCO2 36.6 ABG pO2 67.0 L ABG HCO3 23.7 ABG O2 Saturation 93.9 L ABG Base Excess -0.4 FiO2 100% Sodium 136.4 L Potassium 3.9 Chloride 107 Carbon Dioxide 26 Anion Gap 3 L BUN 12 Creatinine 0.72 Est GFR ( Amer) > 60 Glucose 80 Lactic Acid 1.8 Calcium 7.5 L Phosphorus 2.7 Magnesium 1.9 Total Bilirubin AST Alkaline Phosphatase Ammonia Total Protein Albumin Triglycerides 02/13/19 02/13/19 02/13/19 21:17 21:17 21:17 WBC RBC Hgb Hct MCV MCH MCHC RDW Plt Count Seg Neutrophils % Carbonic Acid 1.01 L HCO3/H2CO3 Ratio 23:1 ABG pH 7.48 H ABG pCO2 33.5 L ABG pO2 67.0 L ABG HCO3 24.2 H ABG O2 Saturation 94.7 ABG Base Excess 0.6 FiO2 100% Sodium 135.8 L Potassium 3.7 Chloride 106 Carbon Dioxide 25 Anion Gap 5 BUN 16 Creatinine 0.97 Est GFR ( Amer) > 60 Glucose 94 Lactic Acid 1.6 Calcium 7.6 L Phosphorus 1.7 L Magnesium 1.9 Total Bilirubin AST Alkaline Phosphatase Ammonia Total Protein Albumin Triglycerides 02/14/19 02/14/19 02/14/19 06:07 06:07 06:07 WBC 12.9 H D RBC 3.03 L Hgb 10.5 L Hct 30.9 L MCV 102 H MCH 34.8 H MCHC 34.2 RDW 13.9 Plt Count 117 L Seg Neutrophils % Not Reportable Carbonic Acid 1.06 HCO3/H2CO3 Ratio 22:1 ABG pH 7.45 ABG pCO2 35.3 ABG pO2 84.3 ABG HCO3 23.7 ABG O2 Saturation 96.8 ABG Base Excess 0.1 FiO2 75% Sodium Potassium Chloride Carbon Dioxide Anion Gap BUN Creatinine Est GFR ( Amer) Glucose Lactic Acid Calcium Phosphorus Magnesium Total Bilirubin AST Alkaline Phosphatase Ammonia < 8.7 L Total Protein Albumin Triglycerides 02/14/19 02/14/19 06:07 06:07 WBC RBC Hgb Hct MCV MCH MCHC RDW Plt Count Seg Neutrophils % Carbonic Acid HCO3/H2CO3 Ratio ABG pH ABG pCO2 ABG pO2 ABG HCO3 ABG O2 Saturation ABG Base Excess FiO2 Sodium 138.1 Potassium 4.0 Chloride 107 Carbon Dioxide 25 Anion Gap 6 BUN 13 Creatinine 0.74 Est GFR ( Amer) > 60 Glucose 122 H Lactic Acid 1.4 Calcium 7.6 L Phosphorus 4.3 D Magnesium 2.1 Total Bilirubin 5.1 H AST 51 Alkaline Phosphatase 58 Ammonia Total Protein 4.5 L Albumin 2.2 L Triglycerides 02/13/19 02/13/19 02/13/19 14:50 14:50 21:17 Creatine Kinase 76 < 20 L Troponin I 0.020 Impressions: KUB X-Ray 02/13/19 09:59 IMPRESSION: SATISFACTORY POSITION OF THE NASOGASTRIC TUBE. NO RADIOGRAPHIC EVIDENCE FOR ACUTE ABDOMINAL DISEASE. Status: Image reviewed by dc - 02-14-19: Chest x-ray shows air bronchograms with dense consolidation. Slightly improved aeration. Lines and tubes in appropriate position Assessment & Plan - Diagnosis (1) Acute respiratory failure with hypoxia Is this a current diagnosis for this admission?: Yes Plan: 02.14.19: Please see plans below 02.13.19:Patient to be intubated. Follow a low tidal volume strategy, recheck ABG, obtain Gram stain and cultures. (2) Aspiration pneumonia due to gastric secretions Qualifiers: Laterality: bilateral Lung location: unspecified part of lung Qualified Code(s): J69.0 - Pneumonitis due to inhalation of food and vomit Is this a current diagnosis for this admission?: Yes Plan: 02.14.19: Please see plans below. 02.13.19:Mother relates that the patient may have been short of breath for some time. This raises a concern for community-acquired with complex microorganisms. I have broadened his antibiotics to meropenem and vancomycin to cover both aero bic, anaerobic and possible MRSA given his significant alcohol use. (3) Delirium due to another medical condition, acute, mixed level of activity Is this a current diagnosis for this admission?: Yes Plan: 02.14.19: Please see plans below. 02.13.19:Patient will be started on propofol and thiamine as well as folate and nutritional support (4) Acute metabolic encephalopathy Is this a current diagnosis for this admission?: Yes Plan: 02.14.19: Please see plans below.) 02.13.19:We will check ammonia level. His stepfather says that the patient had used heroin in the past. He does not feel that he is currently using. (5) Alcohol abuse Is this a current diagnosis for this admission?: Yes (6) Alcohol withdrawal delirium Is this a current diagnosis for this admission?: Yes Plan: 02.14.19: Please see plans below. 02.13.19:As noted above we will start thiamine @ high-dose, folate and nutritional support (7) Dehydration Is this a current diagnosis for this admission?: Yes Plan: 02.14.19: Please see plans below. 02.13.19: Replace volume with LR or pH balance solution (8) Electrolyte and fluid disorder Is this a current diagnosis for this admission?: Yes Plan: 02.14.19: Please see plans below. 02.13.19: Patient is at high risk for hypomagnesemia and hypokalemia. He has low potassium this morning and this is been replaced. (9) Skin abrasion Is this a current diagnosis for this admission?: Yes Plan: 02.14.19: Please see plans below. 02.13.19: Was present on admission. Significant near full-thickness on the right forearm. Will start with Silvadene and wound care. (10) Thrombocytopenia Is this a current diagnosis for this admission?: Yes Plan: Improving. Secondary to sepsis (11) Pleural cavity effusion Is this a current diagnosis for this admission?: Yes Plan: Noted on left side with Critical Care Ultrasound - Time Time Spent with patient: 35 or more minutes Total Critical Time (Minutes): 70 Medications reviewed and adjusted accordingly: Yes Disposition: Remain in ICU - Inpatient Certification Based on my medical assessment, after consideration of the patient's comorbidities, presenting symptoms, or acuity I expect that the services needed warrant INPATIENT care.: Yes I certify that my determination is in accordance with my understanding of Medicare's requirements for reasonable and necessary INPATIENT services [42 CFR 412.3e].: Yes Medical Necessity: Significant Comorbidiites Make Outpatient Treatment Too Risky, Need For IV Fluids, Need For Continuous Telemetry Monitoring, Need for Neurological Checks, Need for IV Antibiotics, Risk of Complication if Not Cared For in Hospital Post Hospital Care: D/C Chief Yeoman Documentation - Plan Summary Plan Summary: 02.14.19: Patient has made dramatic improvement in the last 18 hours. The respiratory standpoint his PF ratio has improved to 133. Will continue to wean FiO2. Continue low tidal volume strategy and aim to keep plateau pressure less than 30. From an infectious disease standpoint no cultures have grown any organisms. We will continue broad-spectrum antibiotics. This also could represent significant pneumonitis that is not infectious. Unfortunately we do not have a procalcitonin to delineate between the 2 processes. Patient has a relative cortisol deficiency. Have started replacement. He has thrombus cytopenia related to sepsis and this is improving. We will continue to monitor this while on subcutaneous heparin. Fever curve has improved dramatically and will continue to monitor. No evidence to support a hyperthermic process. Will restart Seroquel and follow supportively. Seroquel be started secondary to chronic alcohol use syndrome--will follow Qtc and increase dosing if delirium is not improved. Patient has superficial tissue avulsion injury to the right lower arm and will continue to place Silvadene and dressings on. Hypotension related to sepsis is dramatically improved and will start diuresis. On examination patient appears to be euvolemic and I am concerned that excess lung volume may be contributing to his chest x-ray. To need to provide supportive care start nutritional support. He is on high- dose thiamine and folate. He does have small pleural effusion on the left side which is the affected side. We will continue to monitor this. If his fever persists we may be forced to perform thoracentesis. We will follow the amount of fluid with diuresis. Patient seen in multidisciplinary rounds. Care of in ICU patient is ongoing and dynamic. This note represents a static representation of ongoing care in the last 24 hours. Was given completed and entered via computer are not always reflective of actual time done. Medical power of business attorney is: Mother Patient requires ICU care secondary to acute respiratory distress with hypoxia, alcohol withdrawal related delirium and encephalopathy, metabolic
[2019-02-14] MEDS ORDERED: FENTANYL CITRATE INJ/PF 100 MCG/2 ML AMPUL ONE ×2 (14:18→17:20)
[2019-02-14] MEDS ORDERED: ACETAMINOPHEN SOLN 325 MG/10.15 ML UDCUP ONE (16:38)
[2019-02-14] MEDS: ACETAMINOPHEN SOLN 325 MG/10.15 ML UDCUP PO PRN (17:29)
[2019-02-14 19:11] LABS: VANCOMYCIN,TROUGH 10.7 ug/mL (5.0-20.0)
[2019-02-14] MEDS ORDERED: AZITHROMYCIN 500 MG in DEXTROSE 5%-WATER 250 ML IV SCH (22:00)
[2019-02-14] MEDS: AZITHROMYCIN 500 MG in DEXTROSE 5%-WATER 250 ML IV SCH (22:15)
[2019-02-15] MEDS: DEXMEDETOMIDINE IN 0.9 % NACL 400 MCG/100 ML RTUPB IV PRN ×7 (00:59→21:32)
[2019-02-15] MEDS: VANCOMYCIN HCL 1,250 MG in DEXTROSE 5%-WATER 250 ML IV SCH ×2 (01:18→09:08)
[2019-02-15] MEDS: PROPOFOL 1,000 MG/100 ML INFUS..BTL IV PRN ×4 (04:10→18:53)
[2019-02-15] MEDS: FENTANYL CITRATE INJ/PF 100 MCG/2 ML AMPUL IV PRN ×2 (04:35→09:08)
[2019-02-15] MEDS: ALBUTEROL SULFATE 0.083% NEB 2.5 MG/3 ML AMPUL NEB SCH ×5 (04:58→20:11)
[2019-02-15 05:03] LABS: ARTERIAL BLOOD BASE EXCESS 0.4 mmol/L; ARTERIAL BLOOD H2CO3 0.99 mmol/L (1.05-1.35); ARTERIAL BLOOD HCO3 23.5 mmol/L (20-24); ARTERIAL BLOOD O2 SATURATION 97.4 % (94-98); ARTERIAL BLOOD PCO2 32.8 mmHg (35-45); ARTERIAL BLOOD PH 7.47 (7.35-7.45); ARTERIAL BLOOD PO2 90.2 mmHg (80-100); ARTERIAL BLOOD TOTAL CO2 24.5 mmol/L (23-27); HEMATOCRIT 30.2 % (37.9-51.0); HEMOGLOBIN 10.3 g/dL (13.5-17.0); MEAN CORPUSCULAR HEMOGLOBIN 34.4 pg (27.0-33.4); MEAN CORPUSCULAR HGB CONC 34.2 g/dL (32.0-36.0); MEAN CORPUSCULAR VOLUME 101 fl (80-97); PLATELET COUNT 165 10^3/uL (150-450); RED BLOOD COUNT 3.01 10^6/uL (4.35-5.55); RED CELL DISTRIBUTION WIDTH 13.6 % (11.5-14.0); WHITE BLOOD COUNT 16.3 10^3/uL (4.0-10.5)
[2019-02-15 05:05] LABS: ARTERIAL BLOOD FIO2 60%
[2019-02-15 05:21] LABS: ABSOLUTE LYMPHOCYTES# (MANUAL) 0.5 10^3/uL (0.5-4.7); ABSOLUTE MONOCYTES # (MANUAL) 0.7 10^3/uL (0.1-1.4); BAND NEUTROPHILS % (MANUAL) 8 % (3-5); BASOPHILS % (MANUAL) 0 % (0-2); EOSINOPHILS % (MANUAL) 0 % (0-6); LYMPHOCYTES % (MANUAL) 3 % (13-45); MONOCYTES % (MANUAL) 4 % (3-13); OVALOCYTES SLIGHT; SEGMENTED NEUTROPHILS % (MAN) 85 % (42-78); TARGET CELLS SLIGHT; TOTAL CELLS COUNTED 100
[2019-02-15 05:22] LABS: PLATELET COMMENT ADEQUATE
[2019-02-15 05:32] LABS: ALBUMIN 2.1 g/dL (3.5-5.0); ALKALINE PHOSPHATASE 67 U/L (38-126); ANION GAP 7 (5-19); ASPARTATE AMINO TRANSFERASE 42 U/L (17-59); BILIRUBIN,DIRECT 3.7 mg/dL (0.0-0.4); BILIRUBIN,TOTAL 4.5 mg/dL (0.2-1.3); BLOOD UREA NITROGEN 15 mg/dL (7-20); CALCIUM 7.6 mg/dL (8.4-10.2); CARBON DIOXIDE 25 mmol/L (22-30); CHLORIDE 106 mmol/L (98-107); GLUCOSE 122 mg/dL (75-110); POTASSIUM 3.6 mmol/L (3.6-5.0); TOTAL PROTEIN 4.5 g/dL (6.3-8.2); TRIGLYCERIDES 268 mg/dL (<150)
[2019-02-15] MEDS: MEROPENEM 1 GM in NORMAL SALINE 50 ML IV SCH ×3 (06:04→21:30)
[2019-02-15] MEDS: HYDROCORTISONE SOD SUCCINATE INJ/PF 100 MG/2 ML SDV IV SCH ×3 (06:05→21:31)
[2019-02-15] MEDS: HEPARIN SOD (PORCINE) 5,000 UNIT/ML 1 ML VIAL SUBCUT SCH ×3 (06:05→21:32)
--- NOTE | 2019-02-15 07:19 | RADIOLOGY REPORT (SQ) ---
EXAM DESCRIPTION: XR CHEST 1 VIEW COMPLETED DATE/TME: 02/15/2019 06:23 CLINICAL HISTORY: 33 years, Male, low O2 sat, declining status COMPARISON: 02/14/2019 NUMBER OF VIEWS: One TECHNIQUE: AP view of the chest LIMITATIONS: None. FINDINGS: Again noted is near complete consolidation of the left lung. There are stable patchy consolidations within the right lung. The left heart border is obscured. There is no pneumothorax. The right central line, endotracheal tube, and nasogastric tube remain in satisfactory position. IMPRESSION: No significant change compared to the prior exam. copyright 2010 [employer]- All Rights Reserved
--- NOTE | 2019-02-15 08:03 | RADIOLOGY REPORT (SQ) ---
EXAM DESCRIPTION: U/S ABDOMEN COMPLETE W/O DOP COMPLETED DATE/TIME: 02/14/2019 9:16 pm REASON FOR STUDY: Hyperbilirubinemia COMPARISON: None. TECHNIQUE: Dynamic and static grayscale images acquired of the abdomen and recorded on PACS. Additio nal selected color Doppler and spectral images recorded. Note: Study does not meet criteria for complete doppler/duplex scan LIMITATIONS: None. FINDINGS: PANCREAS: No masses. Visualized pancreatic duct normal caliber. LIVER: Mild hepatomegaly. The liver measures 20 cm in cranial caudal dimensions. There is increased echogenicity consistent with fatty infiltration. LIVER VASCULATURE: Normal directional flow of the main portal vein and hepatic veins. GALLBLADDER: Gallbladder wall is thickened measured 7 mm. No stones. No pericholecystic edema. ULTRASOUND-DETECTED PEÑA'S SIGN: Negative. INTRAHEPATIC DUCTS AND COMMON DUCT: CBD and intrahepatic ducts normal caliber. No filling defects. INFERIOR VENA CAVA: Normal flow. AORTA: No aneurysm. RIGHT KIDNEY: Normal size. Normal echogenicity. No solid or suspicious masses. No hydronephros is. No calcifications. LEFT KIDNEY: Normal size. Normal echogenicity. No solid or suspicious masses. No hydronephrosi s. No calcifications. SPLEEN: Normal size. No solid masses. PERITONEAL AND PLEURAL SPACES: No ascites or effusions. OTHER: No other significant finding. IMPRESSION: Thickened gallbladder wall. No pericholecystic edema or stones. Fatty infiltrated liver with hepatomegaly. TECHNICAL DOCUMENTATION: JOB ID: [id number] [employer]- All Rights Reserved Reading location - IP/workstation name: [email or web address]
[2019-02-15] MEDS: THIAMINE HCL 500 MG, FOLIC ACID 1 MG in NORMAL SALINE 250 ML IV SCH (09:08)
[2019-02-15] MEDS: FUROSEMIDE INJ/PF 20 MG/2 ML SDV IV SCH ×2 (09:09→21:32)
[2019-02-15] MEDS: FAMOTIDINE 20 MG TABLET PO SCH ×2 (09:09→21:31)
[2019-02-15 09:10] LABS: MYOGLOBIN 42 ng/mL (28-72)
[2019-02-15] MEDS: SILVER SULFADIAZINE 1% CREAM 400 GM TP SCH ×2 (09:10→18:57)
[2019-02-15] MEDS: QUETIAPINE FUMARATE 25 MG TABLET PO SCH ×2 (09:10→21:31)
--- NOTE | 2019-02-15 11:11 | RADIOLOGY REPORT (SQ) ---
EXAM DESCRIPTION: CT CHEST WITH; CT ABD/PELVIS WITH IV ONLY COMPLETED DATE/TIME: 02/15/2019 10:43 am REASON FOR STUDY: Necrotic lung pneumonia; hyperbilirubinemia CONTRAST TYPE AND DOSE: 88 mL Omnipaque 350 RENAL FUNCTION: BUN 15, creatinine 0.67 COMPARISON: Chest x-ray done earlier the same day. TECHNIQUE: CT scan of the chest performed using helical scanning technique with dynamic intravenous contrast injection. Images reviewed with lung, soft tissue and bone windows. Reconstructed coronal a nd sagittal MPR images reviewed. All images stored on PACS. All CT scanners at this facility use dose modulation, iterative reconstruction, and/or weight based d osing when appropriate to reduce radiation dose to as low as reasonably achievable (ALARA). [facility]: Dose Right [facility]: CareDose [facility]: Dose Right [facility]: Teradose 4D [facility]: SmartProcure RADIATION DOSE: . LIMITATIONS: None. FINDINGS: AXILLAE: No adenopathy. CHEST WALL: No masses. No subcutaneous air. LUNGS: Endotracheal tube and NG tube are in place. Extensive consolidation throughout the left lung field. Very small left effusion. Extensive right-sided airspace disease is well with a small right effusion. PLEURA: Small bilateral pleural effusions. THYROID: No masses or significant asymmetry. HILAR AND MEDIASTINAL STRUCTURES: No identified masses or abnormal nodes. AORTA AND GREAT VESSELS: No aneurysm. No dissection. PULMONARY ARTERIES: No identified pulmonary emboli. Study not optimized for the pulmonary arteries. HEART: No pericardial effusion. HARDWARE AND LIFELINES: None. BONES: No significant finding. OTHER: No other significant finding. IMPRESSION: 1. Complete opacification of left hemithorax consistent with dense consolidation. Smal l left effusion. 2. Fairly extensive right upper and right lower lobe infiltrate consistent with pneumonia as well. Small right effusion. COMPARISON: None. RADIATION DOSE: mGy. TECHNIQUE: CT scan of the abdomen and pelvis performed with intravenous and oral contrast using joe bre scanning technique with dynamic intravenous contrast injection. Images reviewed with lung, soft tissue and bone windows. Reconstructed coronal and sagittal MPR images reviewed. Delayed images for evaluation of the urinary system also acquired and evaluated. All images stored on PACS. All CT scanners at this facility use dose modulation, iterative reconstruction, and/or weight based d osing when appropriate to reduce radiation dose to as low as reasonably achievable (ALARA). [facility]: Dose Right [facility]: SureCare [facility]: Dose Right [facility]: Teradose 4D [facility]: SmartProcure FINDINGS: LIVER: Normal size. No masses. No dilated ducts. SPLEEN: Normal size. No focal lesions. PANCREAS: No masses. No significant calcifications. No adjacent inflammation or peripancreatic flui d collections. Pancreatic duct not dilated. GALLBLADDER: There is gallbladder wall thickening. There appears to be surrounding inflammation. Pe richolecystic edema cannot be excluded although this was not appreciated on recent gallbladder ultras ound. ADRENAL GLANDS: No significant masses or asymmetry. RIGHT KIDNEY AND URETER: No solid masses. No significant calcifications. No hydronephrosis or hyd roureter. LEFT KIDNEY AND URETER: No solid masses. No significant calcifications. No hydronephrosis or hydr oureter. AORTA AND VESSELS: No aneurysm. No dissection. Renal arteries, SMA, celiac without stenosis. RETROPERITONEUM: No retroperitoneal adenopathy, hemorrhage or masses. LARGE AND SMALL BOWEL: No dilatation. No masses. No wall thickening. APPENDIX: Normal. ABDOMINAL WALL: No hernia or masses. PERITONEAL CAVITY: There is a small amount of ascites. PELVIS: The bladder is decompressed by Smith catheter. BONES: No significant or acute findings. OTHER: No other significant finding. IMPRESSION: 1. Small amount of ascites. 2. Thickened gallbladder wall with surrounding inflammation. Acute cholecystitis cannot be excluded . TECHNICAL DOCUMENTATION: JOB ID: [id number] Quality ID # [id number]: Final reports with documentation of one or more dose reduction techniques (e.g., Au tomated exposure control, adjustment of the mA and/or kV according to patient size, use of iterative reconstruction technique) 2010 [employer] All Rights Reserved Reading location - IP/workstation name: [email or web address]
--- NOTE | 2019-02-15 11:11 | RADIOLOGY REPORT (SQ) ---
EXAM DESCRIPTION: CT CHEST WITH; CT ABD/PELVIS WITH IV ONLY COMPLETED DATE/TIME: 02/15/2019 10:43 am REASON FOR STUDY: Necrotic lung pneumonia; hyperbilirubinemia CONTRAST TYPE AND DOSE: 88 mL Omnipaque 350 RENAL FUNCTION: BUN 15, creatinine 0.67 COMPARISON: Chest x-ray done earlier the same day. TECHNIQUE: CT scan of the chest performed using helical scanning technique with dynamic intravenous contrast injection. Images reviewed with lung, soft tissue and bone windows. Reconstructed coronal a nd sagittal MPR images reviewed. All images stored on PACS. All CT scanners at this facility use dose modulation, iterative reconstruction, and/or weight based d osing when appropriate to reduce radiation dose to as low as reasonably achievable (ALARA). [facility]: Dose Right [facility]: CareDose [facility]: Dose Right [facility]: Teradose 4D [facility]: Photo Rankr RADIATION DOSE: . LIMITATIONS: None. FINDINGS: AXILLAE: No adenopathy. CHEST WALL: No masses. No subcutaneous air. LUNGS: Endotracheal tube and NG tube are in place. Extensive consolidation throughout the left lung field. Very small left effusion. Extensive right-sided airspace disease is well with a small right effusion. PLEURA: Small bilateral pleural effusions. THYROID: No masses or significant asymmetry. HILAR AND MEDIASTINAL STRUCTURES: No identified masses or abnormal nodes. AORTA AND GREAT VESSELS: No aneurysm. No dissection. PULMONARY ARTERIES: No identified pulmonary emboli. Study not optimized for the pulmonary arteries. HEART: No pericardial effusion. HARDWARE AND LIFELINES: None. BONES: No significant finding. OTHER: No other significant finding. IMPRESSION: 1. Complete opacification of left hemithorax consistent with dense consolidation. Smal l left effusion. 2. Fairly extensive right upper and right lower lobe infiltrate consistent with pneumonia as well. Small right effusion. COMPARISON: None. RADIATION DOSE: mGy. TECHNIQUE: CT scan of the abdomen and pelvis performed with intravenous and oral contrast using joe bre scanning technique with dynamic intravenous contrast injection. Images reviewed with lung, soft tissue and bone windows. Reconstructed coronal and sagittal MPR images reviewed. Delayed images for evaluation of the urinary system also acquired and evaluated. All images stored on PACS. All CT scanners at this facility use dose modulation, iterative reconstruction, and/or weight based d osing when appropriate to reduce radiation dose to as low as reasonably achievable (ALARA). [facility]: Dose Right [facility]: SureCare [facility]: Dose Right [facility]: Teradose 4D [facility]: Photo Rankr FINDINGS: LIVER: Normal size. No masses. No dilated ducts. SPLEEN: Normal size. No focal lesions. PANCREAS: No masses. No significant calcifications. No adjacent inflammation or peripancreatic flui d collections. Pancreatic duct not dilated. GALLBLADDER: There is gallbladder wall thickening. There appears to be surrounding inflammation. Pe richolecystic edema cannot be excluded although this was not appreciated on recent gallbladder ultras ound. ADRENAL GLANDS: No significant masses or asymmetry. RIGHT KIDNEY AND URETER: No solid masses. No significant calcifications. No hydronephrosis or hyd roureter. LEFT KIDNEY AND URETER: No solid masses. No significant calcifications. No hydronephrosis or hydr oureter. AORTA AND VESSELS: No aneurysm. No dissection. Renal arteries, SMA, celiac without stenosis. RETROPERITONEUM: No retroperitoneal adenopathy, hemorrhage or masses. LARGE AND SMALL BOWEL: No dilatation. No masses. No wall thickening. APPENDIX: Normal. ABDOMINAL WALL: No hernia or masses. PERITONEAL CAVITY: There is a small amount of ascites. PELVIS: The bladder is decompressed by Smith catheter. BONES: No significant or acute findings. OTHER: No other significant finding. IMPRESSION: 1. Small amount of ascites. 2. Thickened gallbladder wall with surrounding inflammation. Acute cholecystitis cannot be excluded . TECHNICAL DOCUMENTATION: JOB ID: [id number] Quality ID # [id number]: Final reports with documentation of one or more dose reduction techniques (e.g., Au tomated exposure control, adjustment of the mA and/or kV according to patient size, use of iterative reconstruction technique) 2010 [employer]- All Rights Reserved Reading location - IP/workstation name: [email or web address]
[2019-02-15] MEDS: ACETAMINOPHEN SOLN 325 MG/10.15 ML UDCUP PO PRN (13:55)
[2019-02-15] MEDS: LINEZOLID 600 MG/300 ML RTUPB IV SCH ×2 (15:03→22:07)
--- NOTE | 2019-02-15 15:30 | PDOC PROGRESS REPORT ---
Subjective Progress Note for:: 02/15/19 Subjective:: 02.15.19: Patient has had intermittent agitation. Had another fever last evening however not as significant or as high as previous. He remains off of vasopressor therapy. He still has significant consolidation of the left lung and a CT scan was ordered. This shows extensive dense consolidation. Because of this he was transitioned to the linezolid to achieve better lung penetration. Cultures are still negative however patient has been on antibiotics when they were obtained. Critical care ultrasound shows a small pleural effusion and what appears to be tethering of the lung. The effusion is small on CT scan. No foreign bodies were seen. Still requires both propofol and Dexemedatomidine for agitation. This has improved. 02.14.19: Patient's condition has improved but he is still critical. Retention has resolved and he is now weaned off levophed. He was started on Solu-Cortef because of the inflammatory response in for a cortisol level of 10. On sedation wean he does completely respond and follow commands. His tachycardia has improved and his temperature profile has reduced. Critical care ultrasound was done to evaluate fluid status. His IVC is dilated and does not have respirophasic changes. He appears adequately volume resuscitated. 02.13.19: Patient noted to be tachypneic and tachycardic. His oxygen saturation has improved but respiratory rate has worsened. He is slightly confused. Blood pressures are in the low 90s systolically. He denies any complaints. His mother states that the patient has been extremely depressed recently. Reason For Visit: PNEUMONIA,ACUTE HYPOXIC RESPIRATORY FAILURE,SIRS Physical Exam Vital Signs: Temp Pulse Resp BP Pulse Ox 100.4 F 99 28 H 148/87 H 97 02/15/19 08:00 02/15/19 08:29 02/15/19 08:00 02/15/19 08:00 02/15/19 08:00 Pulse Oximeter Continuous Start: 02/12/19 06:14 Freq: RTQ4 Status: Complete Protocol: Document 02/12/19 10:31 [facility] (Rec: 02/12/19 10:32 [facility] [email or web address]) Pulse Oximetry Assessment Equipment Usage Equipment Standby Continuous SpO2 Machine # na Intake & Output 02/14/19 02/15/19 02/16/19 06:59 06:59 06:59 Intake Total 3672 2702.2 39 Output Total 7985 2660 75 Balance 1187 42.2 -36 Weight 75.2 kg 76.8 kg Physical Exam: Intubated nontoxic ill appearing 33-year-old male no active distress except during active examination. General appearance: PRESENT: no acute distress, well-developed, well-nourished Head exam: PRESENT: atraumatic, normocephalic Eye exam: PRESENT: conjunctival injection, conjunctiva pink, PERRLA, scleral icterus - Mild Mouth exam: PRESENT: neck supple Teeth exam: PRESENT: poor dentation Neck exam: ABSENT: carotid bruit, JVD, lymphadenopathy, meningismus, thyromegaly, tracheal deviation Respiratory exam: PRESENT: decreased breath sounds - Left lung. Has high pitched sounds, rhonchi, unlabored. ABSENT: accessory muscle use Cardiovascular exam: PRESENT: RRR, +S1, +S2. ABSENT: rubs Pulses: PRESENT: +2 pedal pulses bilateral Vascular exam: PRESENT: normal capillary refill GI/Abdominal exam: PRESENT: normal bowel sounds, soft. ABSENT: ascites, diminished bowel sounds, distended, firm, guarding, mass, Sharma's sign, organolmegaly, rebound, rigid, tenderness Rectal exam: PRESENT: deferred Gentrourinary exam: PRESENT: indwelling catheter Extremities exam: ABSENT: joint swelling, pedal edema Musculoskeletal exam: PRESENT: normal inspection. ABSENT: deformity, dislocation Neurological exam: PRESENT: altered Additional comments: Debated on sedation. Mamta Coma Scale is: 3-1T-6. Follows commands, no focal deficits Focused psych exam: PRESENT: psychomotor agitation, restlessness - when examined Skin exam: PRESENT: abrasion, normal color, other - Superficial abrasions to right lower leg. No erythema. Right upper medial arm shows large partial tissue avulsion. No change. ABSENT: intact, mottled, pallor Results Laboratory Results: 02/15/19 04:32 02/15/19 04:32 02/15/19 02/15/19 02/15/19 04:32 04:32 04:32 WBC RBC Hgb Hct MCV MCH MCHC RDW Plt Count Seg Neutrophils % Carbonic Acid 0.99 L HCO3/H2CO3 Ratio 23:1 ABG pH 7.47 H ABG pCO2 32.8 L ABG pO2 90.2 ABG HCO3 23.5 ABG O2 Saturation 97.4 ABG Base Excess 0.4 FiO2 60% Sodium 138.3 Potassium 3.6 Chloride 106 Carbon Dioxide 25 Anion Gap 7 BUN 15 Creatinine 0.67 Est GFR ( Amer) > 60 Glucose 122 H Calcium 7.6 L Phosphorus 4.0 Magnesium 2.4 H Total Bilirubin 4.5 H AST 42 Alkaline Phosphatase 67 Ammonia < 8.7 L Total Protein 4.5 L Albumin 2.1 L Triglycerides 268 H 02/15/19 04:32 WBC 16.3 H RBC 3.01 L Hgb 10.3 L Hct 30.2 L MCV 101 H MCH 34.4 H MCHC 34.2 RDW 13.6 Plt Count 165 Seg Neutrophils % Not Reportable Carbonic Acid HCO3/H2CO3 Ratio ABG pH ABG pCO2 ABG pO2 ABG HCO3 ABG O2 Saturation ABG Base Excess FiO2 Sodium Potassium Chloride Carbon Dioxide Anion Gap BUN Creatinine Est GFR ( Amer) Glucose Calcium Phosphorus Magnesium Total Bilirubin AST Alkaline Phosphatase Ammonia Total Protein Albumin Triglycerides 02/12/19 01:45 Throat Throat Culture - Final NORMAL ELENA 02/13/19 09:38 Tracheal Aspirate Gram Stain - Final 02/13/19 09:38 Tracheal Aspirate Sputum Culture - Final 02/13/19 02/13/19 02/13/19 14:50 14:50 21:17 Creatine Kinase 76 < 20 L Troponin I 0.020 Impressions: KUB X-Ray 02/13/19 09:59 IMPRESSION: SATISFACTORY POSITION OF THE NASOGASTRIC TUBE. NO RADIOGRAPHIC EVIDENCE FOR ACUTE ABDOMINAL DISEASE. Abdomen Ultrasound 02/14/19 00:00 IMPRESSION: Thickened gallbladder wall. No pericholecystic edema or stones. Fatty infiltrated liver with hepatomegaly. Chest X-Ray 02/15/19 06:23 IMPRESSION: No significant change compared to the prior exam. copyright 2010 [email or web address]- All Rights Reserved Assessment & Plan - Diagnosis (1) ARDS (adult respiratory distress syndrome) Is this a current diagnosis for this admission?: Yes (2) Sepsis with encephalopathy and septic shock Qualifiers: Sepsis type: sepsis due to unspecified organism Qualified Code(s): A41.9 - Sepsis, unspecified organism; R65.21 - Severe sepsis with septic shock; G93.40 - Encephalopathy, unspecified Is this a current diagnosis for this admission?: Yes Plan: See below. Sepsis present on admission to ICU. (3) Acute respiratory failure with hypoxia Is this a current diagnosis for this admission?: Yes (4) Aspiration pneumonia due to gastric secretions Qualifiers: Laterality: bilateral Lung location: unspecified part of lung Qualified C ode(s): J69.0 - Pneumonitis due to inhalation of food and vomit Is this a current diagnosis for this admission?: Yes (5) Delirium due to another medical condition, acute, mixed level of activity Is this a current diagnosis for this admission?: Yes (6) Acute metabolic encephalopathy Is this a current diagnosis for this admission?: Yes (7) Alcohol abuse Is this a current diagnosis for this admission?: Yes (8) Alcohol withdrawal delirium Is this a current diagnosis for this admission?: Yes (9) Dehydration Is this a current diagnosis for this admission?: Yes (10) Electrolyte and fluid disorder Is this a current diagnosis for this admission?: Yes (11) Skin abrasion Is this a current diagnosis for this admission?: Yes (12) Thrombocytopenia Is this a current diagnosis for this admission?: Yes (13) Pleural cavity effusion Is this a current diagnosis for this admission?: Yes - Time Time Spent with patient: 35 or more minutes Total Critical Time (Minutes): 45 Medications reviewed and adjusted accordingly: Yes - Plan Summary Plan Summary: Plan Summary: 02.15.19: I am concerned about the deep and dense consolidation of the left lung. For this reason I have transitioned him to Linezolid which achieves better concentrated drug deposition. At this point his effusion is still too small to attempt to remove and with the lung tethering and dense consolidation predisposes him to injury. Continue to monitor and follow accordingly. He is improving from his sepsis crisis and his ARDS is improved. His PF ratio has improved to above 200. These are helpful signs the patient's mortality and morbidity are moving in a positive direction. Continue tube feeds and have spoken with nutrition. Patient has a right subclav melvin central line and a right radial arterial catheter which are necessary for his critical care and we will maintain these. He also has a Smith catheter and will attempt to see if a condom type catheter would be better suited. We will continue supportive care and continue to monitor microbiological data. Updated family at bedside 02.14.19: Patient has made dramatic improvement in the last 18 hours. The respiratory standpoint his PF ratio has improved to 133. Will continue to wean FiO2. Continue low tidal volume strategy and aim to keep plateau pressure less than 30. From an infectious disease standpoint no cultures have grown any organisms. We will continue broad-spectrum antibiotics. This also could represent significant pneumonitis that is not infectious. Unfortunately we do not have a procalcitonin to delineate between the 2 processes. Patient has a relative cortisol deficiency. Have started replacement. He has thrombus cytopenia related to sepsis and this is improving. We will continue to monitor this while on subcutaneous heparin. Fever curve has improved dramatically and will continue to monitor. No evidence to support a hyperthermic process. Will restart Seroquel and follow supportively. Seroquel be started secondary to chronic alcohol use syndrome--will follow Qtc and increase dosing if delirium is not improved. Patient has superficial tissue avulsion injury to the right lower arm and will continue to place Silvadene and dressings on. Hypotension related to sepsis is dramatically improved and will start diuresis. On examination patient appears to be euvolemic and I am concerned that excess lung volume may be contributing to his chest x-ray. To need to provide supportive care start nutritional support. He is on high- dose thiamine and folate. He does have small pleural effusion on the left side which is the affected side. We will continue to monitor this. If his fever persists we may be forced to perform thoracentesis. We will follow the amount of fluid with diuresis. Patient seen in multidisciplinary rounds. Care of in ICU patient is ongoing and dynamic. This note represents a static representation of ongoing care in the last 24 hours. Was given completed and entered via computer are not always reflective of actual time done. Medical power of county attorney is: Mother Patient requires ICU care secondary to acute respiratory distress with hypoxia, alcohol withdrawal related delirium and encephalopathy, metabolic
[2019-02-15] MEDS: AZITHROMYCIN 500 MG in DEXTROSE 5%-WATER 250 ML IV SCH (22:07)
[2019-02-16] MEDS: ALBUTEROL SULFATE 0.083% NEB 2.5 MG/3 ML AMPUL NEB SCH ×7 (00:33→23:55)
[2019-02-16] MEDS: DEXMEDETOMIDINE IN 0.9 % NACL 400 MCG/100 ML RTUPB IV PRN ×7 (00:39→21:41)
[2019-02-16] MEDS: PROPOFOL 1,000 MG/100 ML INFUS..BTL IV PRN ×6 (00:40→23:49)
[2019-02-16] MEDS: FENTANYL CITRATE INJ/PF 100 MCG/2 ML AMPUL IV PRN ×3 (00:53→08:54)
[2019-02-16] MEDS: HYDROCORTISONE SOD SUCCINATE INJ/PF 100 MG/2 ML SDV IV SCH ×2 (05:14→21:38)
[2019-02-16] MEDS: MEROPENEM 1 GM in NORMAL SALINE 50 ML IV SCH ×3 (05:14→21:28)
[2019-02-16] MEDS: HEPARIN SOD (PORCINE) 5,000 UNIT/ML 1 ML VIAL SUBCUT SCH ×3 (05:14→21:36)
--- NOTE | 2019-02-16 09:41 | RADIOLOGY REPORT (SQ) ---
EXAM DESCRIPTION: CHEST SINGLE VIEW COMPLETED DATE/TIME: 02/16/2019 9:03 am REASON FOR STUDY: pneumonia with ARDS COMPARISON: 02/15/2019 NUMBER OF VIEWS: One view. TECHNIQUE: Single frontal radiographic image of the chest acquired. LIMITATIONS: None. FINDINGS: LUNGS AND PLEURA: No significant change. Dense consolidation in the left lung. Less exte nsive consolidation in the right lower lobe. No pneumothorax MEDIASTINUM AND HEART: Stable heart size and mediastinal structures. SUPPORT DEVICES: Appropriate location without change. BONY STRUCTURES: No acute findings. HARDWARE: None. OTHER: No other significant finding. IMPRESSION: STABLE APPEARANCE OF THE CHEST. SUPPORT DEVICES UNCHANGED. Reading location - IP/workstation name: [email or web address]
[2019-02-16] MEDS: QUETIAPINE FUMARATE 25 MG TABLET PO SCH ×2 (10:17→21:37)
[2019-02-16] MEDS: THIAMINE HCL 500 MG, FOLIC ACID 1 MG in NORMAL SALINE 250 ML IV SCH (10:17)
[2019-02-16] MEDS: FAMOTIDINE 20 MG TABLET PO SCH ×2 (10:18→21:36)
[2019-02-16] MEDS: FUROSEMIDE INJ/PF 20 MG/2 ML SDV IV SCH ×2 (10:18→21:36)
[2019-02-16] MEDS: LINEZOLID 600 MG/300 ML RTUPB IV SCH (10:40)
[2019-02-16] MEDS: SILVER SULFADIAZINE 1% CREAM 400 GM TP SCH ×2 (10:40→18:10)
[2019-02-16] MEDS ORDERED: HYDROMORPHONE HCL INJ/PF 2 MG/ML AMPULE IV PRN ×2 (12:29→15:10)
--- NOTE | 2019-02-16 12:52 | PDOC PROGRESS REPORT ---
Subjective Progress Note for:: 02/16/19 - ICU day5-6 Subjective:: 02.16.19: Patient's oxygen requirements have been reduced and his fever profile has improved. He has been more agitated requiring more propofol. Notably his triglyceride levels are not significantly elevated but are on the higher range of normal. The plans below. On ultrasound at bedside done by this author patient has increase in pleural effusion on the left. Chest x-ray shows continued consolidation. There is some compression artifact most likely related to the effusion. He no longer has hypotension. No signs of sepsis at this time. 02.15.19: Patient has had intermittent agitation. Had another fever last evenin g however not as significant or as high as previous. He remains off of vasopressor therapy. He still has significant consolidation of the left lung and a CT scan was ordered. This shows extensive dense consolidation. Because of this he was transitioned to the linezolid to achieve better lung penetration. Cultures are still negative however patient has been on antibiotics when they were obtained. Critical care ultrasound shows a small pleural effusion and what appears to be tethering of the lung. The effusion is small on CT scan. No foreign bodies were seen. Still requires both propofol and Dexemedatomidine for agitation. This has improved. 02.14.19: Patient's condition has improved but he is still critical. Retention has resolved and he is now weaned off levophed. He was started on Solu-Cortef because of the inflammatory response in for a cortisol level of 10. On sedation wean he does completely respond and follow commands. His tachycardia has im proved and his temperature profile has reduced. Critical care ultrasound was done to evaluate fluid status. His IVC is dilated and does not have respirophasic changes. He appears adequately volume resuscitated. 02.13.19: Patient noted to be tachypneic and tachycardic. His oxygen saturation has improved but respiratory rate has worsened. He is slightly confused. Blood pressures are in the low 90s systolic. He denies any complaints. His mother states that the patient has been extremely depressed recently. Reason For Visit: PNEUMONIA,ACUTE HYPOXIC RESPIRATORY FAILURE,SIRS Physical Exam Vital Signs: Temp Pulse Resp BP Pulse Ox 99.1 F 73 28 H 131/92 H 100 02/16/19 05:16 02/16/19 04:06 02/16/19 06:03 02/16/19 06:03 02/16/19 06:03 Pulse Oximeter Continuous Start: 02/12/19 06:14 Freq: RTQ4 Status: Complete Protocol: Document 02/12/19 10:31 [facility] (Rec: 02/12/19 10:32 [facility] [id number]) Pulse Oximetry Assessment Equipment Usage Equipment Standby Continuous SpO2 Machine # na Intake & Output 02/15/19 02/16/19 02/17/19 06:59 06:59 06:59 Intake Total 2702.2 1735.2 2 Output Total 2660 2895 Balance 42.2 -1159.8 2 Weight 76.8 kg 79.2 kg Physical Exam: Intubated nontoxic ill appearing 33-year-old male occasionally restless but no active distress General appearance: PRESENT: no acute distress, well-developed, well-nourished Head exam: PRESENT: atraumatic, normocephalic Eye exam: PRESENT: conjunctiva pink, PERRLA. ABSENT: conjunctival injection, nystagmus, scleral icterus Mouth exam: PRESENT: moist Teeth exam: PRESENT: poor dentation Neck exam: ABSENT: JVD, lymphadenopathy, meningismus, thyromegaly, tracheal deviation Respiratory exam: PRESENT: decreased breath sounds - On left., rhonchi, unlabored. ABSENT: accessory muscle use Additional comments: Critical care ultrasound shows a significant pleural effusion on the left with shred sign. There is less tethering because of the amount of volume that is increased. There is a definitive "Shark sign". Fluid does not appear complex . Cardiovascular exam: PRESENT: RRR, +S1, +S2. ABSENT: clicks, gallop, rubs, systolic murmur Pulses: PRESENT: normal carotid pulses, +2 pedal pulses bilateral Vascular exam: PRESENT: normal capillary refill GI/Abdominal exam: PRESENT: normal bowel sounds, soft. ABSENT: ascites, diminished bowel sounds, distended, firm, guarding, mass, Sharma's sign, organolmegaly, rebound, rigid, tenderness Rectal exam: PRESENT: deferred Gentrourinary exam: PRESENT: indwelling catheter Extremities exam: ABSENT: joint swelling, pedal edema Musculoskeletal exam: PRESENT: normal inspection. ABSENT: deformity, dislocation, tenderness Neurological exam: PRESENT: altered Additional comments: Glaucoma scale: 3-2T-6: Patient attempts to speak with ET tube Psychiatric exam: PRESENT: agitated Focused psych exam: PRESENT: psychomotor agitation - Intermittently. Controlled now, restlessness Skin exam: PRESENT: intact, normal color. ABSENT: cyanosis, erythema, jaundice, mottled, pallor, petechiae, rash, urticaria, vesicles Results Laboratory Results: 02/15/19 04:32 02/15/19 04:32 02/14/19 12:26 Tracheal Aspirate Gram Stain - Final 02/14/19 12:26 Tracheal Aspirate Sputum Culture - Final NO GROWTH 2 DAYS 02/13/19 02/13/19 02/13/19 14:50 14:50 21:17 Creatine Kinase 76 < 20 L Troponin I 0.020 Impressions: KUB X-Ray 02/13/19 09:59 IMPRESSION: SATISFACTORY POSITION OF THE NASOGASTRIC TUBE. NO RADIOGRAPHIC EVIDENCE FOR ACUTE ABDOMINAL DISEASE. Abdomen Ultrasound 02/14/19 00:00 IMPRESSION: Thickened gallbladder wall. No pericholecystic edema or stones. Fatty infiltrated liver with hepatomegaly. Abdomen/Pelvis CT 02/15/19 00:00 IMPRESSION: 1. Complete opacification of left hemithorax consistent with dense consolidation. Small left effusion. 2. Fairly extensive right upper and right lower lobe infiltrate consistent with pneumonia as well. Small right effusion. IMPRESSION: 1. Small amount of ascites. 2. Thickened gallbladder wall with surrounding inflammation. Acute cholecystitis cannot be excluded. Chest CT 02/15/19 00:00 IMPRESSION: 1. Complete opacification of left hemithorax consistent with dense consolidation. Small left effusion. 2. Fairly extensive right upper and right lower lobe infiltrate consistent with pneumonia as well. Small right effusion. IMPRESSION: 1. Small amount of ascites. 2. Thickened gallbladder wall with surrounding inflammation. Acute cholecystitis cannot be excluded. Chest X-Ray 02/15/19 06:23 IMPRESSION: No significant change compared to the prior exam. copyright 2010 [employer]- All Rights Reserved Status: Image reviewed by me - Effusion. Air bronchogram. Minimal improvement Assessment & Plan - Diagnosis (1) ARDS (adult respiratory distress syndrome) Is this a current diagnosis for this admission?: Yes (2) Sepsis with encephalopathy and septic shock Qualifiers: Sepsis type: sepsis due to unspecified organism Qualified Code(s): A41.9 - Sepsis, unspecified organism; R65.21 - Severe sepsis with septic shock; G93.40 - Encephalopathy, unspecified Is this a current diagnosis for this admission?: Yes (3) Acute respiratory failure with hypoxia Is this a current diagnosis for this admission?: Yes (4) Aspiration pneumonia due to gastric secretions Qualifiers: Laterality: bilateral Lung location: unspecified part of lung Qualified Code(s): J69.0 - Pneumonitis due to inhalation of food and vomit Is this a current diagnosis for this admission?: Yes (5) Delirium due to another medical condition, acute, mixed level of activity Is this a current diagnosis for this admission?: Yes (6) Acute metabolic encephalopathy Is this a current diagnosis for this admission?: Yes (7) Alcohol abuse Is this a current diagnosis for this admission?: Yes (8) Alcohol withdrawal delirium Is this a current diagnosis for this admission?: Yes (9) Dehydration Is this a current diagnosis for this admission?: Yes (10) Electrolyte and fluid disorder Is this a current diagnosis for this admission?: Yes (11) Skin abrasion Is this a current diagnosis for this admission?: Yes (12) Thrombocytopenia Is this a current diagnosis for this admission?: Yes (13) Pleural cavity effusion Is this a current diagnosis for this admission?: Yes - Time Time Spent with patient: 35 or more minutes Total Critical Time (Minutes): 65 Medications reviewed and adjusted accordingly: Yes Disposition: To remain in ICU on Mechanical ventilation - Inpatient Certification Based on my medical assessment, after consideration of the patient's com orbidities, presenting symptoms, or acuity I expect that the services needed warrant INPATIENT care.: Yes I certify that my determination is in accordance with my understanding of Medicare's requirements for reasonable and necessary INPATIENT services [42 CFR 412.3e].: Yes Medical Necessity: Significant Comorbidiites Make Outpatient Treatment Too Risky, Need For Continuous Telemetry Monitoring, Need for Neurological Checks, Need for Pain Control, Need for IV Antibiotics, Risk of Complication if Not Cared For in Hospital Post Hospital Care: 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 He was started on Marilyn nasal lid in hopes to achieve better lung penetration. We will also perform bedside thoracentesis to help improve the compressive atelectasis changes and hopefully aerate the lung. labs sent for analysis. I have increased his Seroquel to help with agitation and psychomotor restlessness. Because of the nasal lid I discontinued any fentanyl use. Continue high-dose thiamine and continue nutritional support Hopefully will be able to continue to wean ventilator settings with the removal of pleural fluid. We will continue diuresis. Continue supportive care. Ordered EKG to evaluate QT interval. If greater than 490 mS will need to discontinue Seroquel. Present Gram stain still remain negative. Should this continue and the chest x- ray does not improve we may be forced to perform bronchoscopy. The possibility of an underlying lymphoma or malignancy would need to be considered if there is poor clearance. Chest CT done shows extensive consolidation. 02.15.19: I am concerned about the deep and dense consolidation of the left froylan ng. For this reason I have transitioned him to Linezolid which achieves better concentrated drug deposition. At this point his effusion is still too small to attempt to remove and with the lung tethering and dense consolidation predisposes him to injury. Continue to monitor and follow accordingly. He is improving from his sepsis crisis and his ARDS is improved. His PF ratio has improved to above 200. These are helpful signs the patient's mortality and morbidity are moving in a positive direction. Continue tube feeds and have spoken with nutrition. Patient has a right subclavian central line and a right radial arterial catheter which are necessary for his critical care and we will maintain these. He also has a Smith catheter and will attempt to see if a condom type catheter would be better suited. We will continue supportive care and continue to monitor microbiological data. Updated family at bedside 02.14.19: Patient has made dramatic improvement in the last 18 hours. The respiratory standpoint his PF ratio has improved to 133. Will continue to wean FiO2. Continue low tidal volume strategy and aim to keep plateau pressure less than 30. From an infectious disease standpoint no cultures have grown any organisms. We will continue broad-spectrum antibiotics. This also could represent significant pneumonitis that is not infectious. Unfortunately we do not have a procalcitonin to delineate between the 2 processes. Patient has a relative cortisol deficiency. Have started replacement. He has thrombus cytopenia related to sepsis and this is improving. We will continue to monitor this while on subcutaneous heparin. Fever curve has improved dramatically and will continue to monitor. No evidence to support a hyperthermic process. Will restart Seroquel and follow supportively. Seroquel be started secondary to chronic alcohol use syndrome --will follow Qtc and increase dosing if delirium is not improved. Patient has superficial tissue avulsion injury to the right lower arm and will continue to place Silvadene and dressings on. Hypotension related to sepsis is dramatically improved and will start diuresis. On examination patient appears to be euvolemic and I am concerned that excess lung volume may be contributing to his chest x-ray. To need to provide supportive care start nutritional support. He is on high- dose thiamine and folate. He does have small pleural effusion on the left side which is the affected side. We will continue to monitor this. If his fever persists we may be forced to perform thoracentesis. We will follow the amount of fluid with diuresis. Patient seen in multidisciplinary rounds. Care of in ICU patient is ongoing and dynamic. This note represents a static representation of ongoing care in the last 24 hours. Was given completed and entered via computer are not always reflective of actual time done. Medical power of customer solutions coordinator is: Mother Patient requires ICU care secondary to acute respiratory distress with hypoxia, alcohol withdrawal related delirium and encephalopathy, metabolic
[2019-02-16] MEDS ORDERED: MIDAZOLAM 2 MG/2 ML INJ IV ONE (13:00)
--- NOTE | 2019-02-16 14:19 | Operative Report ---
Bedside Procedure - History of Present Illness History of Present Illness: This patient is a 33 yo man admitted earlier today with a L pnemonia and sepsis. While on the medical floor he coughed and wretched several times and became markedly tachycardic up to 140-50 range and tachypnic. He seems to be mentating well for now but seems tired. His CXR show PNA is dense and a burgeoning infiltrate on RLL C/W aspiration in addition to CAP and sepsis. He was transferred to the ICU for bipap with potential intubation. He ultimately failed BiPap and was intubated February 13. Has dense consolidation, left lung Indication for Procedure: Large pleural effusion Date: 02/13/19 Surgeon: MEY GREEN - Thoracentesis Left Time completed: 14:07 Consent obtained: Yes Thoracentesis pre-procedure: Other - Sterile gloves, Sterile Ultrasound probe Needle size: 6 Thoracentesis location: Left posterior chest, sub scapular Anesthetic type: 1% Lidocaine mL's of anesthetic: 4 Amount/type of drainage: 900 ml/mirian-urine colored Number of attempts: 1 Ultrasound guided: Yes Complications: No - Post procedure: Sliding lung identified. M mode shows "sea- shore" sign Notes: 02/16/19 14:14 Patient was appropriate identified prior to procedure and a timeout was called. Consent obtained from family. This procedure was done under ultrasound guidance using sterile dynamic ultrasound probe. Patient was placed on 100% oxygen and PEEP was reduced to 5. The left chest was chosen secondary to the large pleural effusion seen on pre-or prior ultrasound and chest x-ray. Prepped with chlorhexidine it was allowed to dry. Sterile gloves nonsterile mask and regional barrier precautions were used. Ultrasound guidance 1% lidocaine was instilled in the subscapular space. Identification of the diaphragm was done and the space chosen was well above the diaphragm. Lidocaine could be seen instilled in the location of the topical landmarks. A small incision was made to facilitate placement of the safety catheter and the catheter was inserted using ultrasound guidance into the pleural space. Clear fluid was obtained there was no bleeding. Samples were collected and placed in tubing and sent to the lab. Drainage of the pleural cavity then was then done using manual syringe using a one-way valve tube bag system. Approximately 900 cc of fluid was collected. It remained Mirian throughout the course there was no exudative appearance. Post procedure the lung had expanded. There was an area that appeared to be necrotic on the lung which was seen on x-ray and CAT scan. After full expansion was noted ultrasound was done to rule out pneumothorax. B- lines with lung shimmering and lung sliding was noted. This area was placed on M-mode and a clear "seashore sign" was seen. Chest x-ray was done which showed no pneumothorax and improvement in the expansion of the lung. Tolerated the procedure well. There were no complications. Estimated blood loss 0. Fluid sent for analysis. Procedure excludes critical care time
[2019-02-16 16:08] LABS: FLUID SOURCE LUNG; FLUID TYPE PLEURAL
[2019-02-16 16:09] LABS: FLUID APPEARANCE HAZY; FLUID COLOR YELLOW; FLUID VISCOSITY LIQUID
--- NOTE | 2019-02-16 20:15 | EKG REPORT ---
SEVERITY:- OTHERWISE NORMAL ECG - SINUS RHYTHM LOW VOLTAGE IN FRONTAL LEADS : Confirmed by: Hawa Nur MD 16-Feb-2019 20:15:07
[2019-02-16] MEDS ORDERED: HYDROMORPHONE HCL INJ/PF 2 MG/ML AMPULE ONE (20:18)
[2019-02-16] MEDS: HYDROMORPHONE HCL INJ/PF 2 MG/ML AMPULE IV PRN ×2 (20:35→23:48)
[2019-02-16] MEDS: AZITHROMYCIN 500 MG in DEXTROSE 5%-WATER 250 ML IV SCH (22:45)
[2019-02-17] MEDS ORDERED: LINEZOLID 600 MG/300 ML RTUPB IV ONE (00:07)
[2019-02-17] MEDS: LINEZOLID 600 MG/300 ML RTUPB IV SCH ×2 (00:13→11:52)
[2019-02-17] MEDS: ALBUTEROL SULFATE 0.083% NEB 2.5 MG/3 ML AMPUL NEB SCH ×5 (04:14→20:17)
[2019-02-17] MEDS: HYDROMORPHONE HCL INJ/PF 2 MG/ML AMPULE IV PRN ×8 (04:50→23:15)
[2019-02-17] MEDS ORDERED: PROPOFOL INJ 200 MG/20 ML VIAL IV ONE (05:34)
[2019-02-17] MEDS ORDERED: DEXMEDETOMIDINE INJ 80 MCG/20 ML VIAL IV ONE (05:46)
[2019-02-17] MEDS: PROPOFOL 1,000 MG/100 ML INFUS..BTL IV PRN ×4 (06:03→16:44)
[2019-02-17] MEDS: MEROPENEM 1 GM in NORMAL SALINE 50 ML IV SCH ×3 (06:03→21:56)
[2019-02-17] MEDS: DEXMEDETOMIDINE IN 0.9 % NACL 400 MCG/100 ML RTUPB IV PRN ×2 (06:04→09:40)
[2019-02-17] MEDS: HEPARIN SOD (PORCINE) 5,000 UNIT/ML 1 ML VIAL SUBCUT SCH ×3 (06:06→22:00)
[2019-02-17 06:38] LABS: ARTERIAL BLOOD BASE EXCESS 4.5 mmol/L; ARTERIAL BLOOD H2CO3 1.24 mmol/L (1.05-1.35); ARTERIAL BLOOD HCO3 28.7 mmol/L (20-24); ARTERIAL BLOOD O2 SATURATION 92.2 % (94-98); ARTERIAL BLOOD PCO2 41.2 mmHg (35-45); ARTERIAL BLOOD PH 7.46 (7.35-7.45); ARTERIAL BLOOD PO2 59.7 mmHg (80-100)
[2019-02-17 06:39] LABS: HEMATOCRIT 27.1 % (37.9-51.0); HEMOGLOBIN 9.3 g/dL (13.5-17.0); MEAN CORPUSCULAR HEMOGLOBIN 34.3 pg (27.0-33.4); MEAN CORPUSCULAR HGB CONC 34.1 g/dL (32.0-36.0); MEAN CORPUSCULAR VOLUME 101 fl (80-97); PLATELET COUNT 291 10^3/uL (150-450); RED CELL DISTRIBUTION WIDTH 13.7 % (11.5-14.0); WHITE BLOOD COUNT 12.2 10^3/uL (4.0-10.5)
[2019-02-17 06:41] LABS: ARTERIAL BLOOD FIO2 50%
[2019-02-17 06:56] LABS: ANION GAP 6 (5-19); BLOOD UREA NITROGEN 15 mg/dL (7-20); CALCIUM 7.5 mg/dL (8.4-10.2); CARBON DIOXIDE 28 mmol/L (22-30); CHLORIDE 110 mmol/L (98-107); GLUCOSE 101 mg/dL (75-110); PHOSPHORUS 3.7 mg/dL (2.5-4.5); POTASSIUM 3.5 mmol/L (3.6-5.0); TRIGLYCERIDES 354 mg/dL (<150)
[2019-02-17 07:01] LABS: MYOGLOBIN URINE 54 ng/mL (0-13)
[2019-02-17 07:03] LABS: ABSOLUTE LYMPHOCYTES# (MANUAL) 0.4 10^3/uL (0.5-4.7); ABSOLUTE MONOCYTES # (MANUAL) 0.7 10^3/uL (0.1-1.4); BAND NEUTROPHILS % (MANUAL) 5 % (3-5); BASOPHILS % (MANUAL) 0 % (0-2); EOSINOPHILS % (MANUAL) 0 % (0-6); LYMPHOCYTES % (MANUAL) 3 % (13-45); MONOCYTES % (MANUAL) 6 % (3-13); SEGMENTED NEUTROPHILS % (MAN) 86 % (42-78); TOTAL CELLS COUNTED 100
[2019-02-17 07:05] LABS: HYPOCHROMASIA 2+; PLATELET COMMENT ADEQUATE
--- NOTE | 2019-02-17 08:40 | RADIOLOGY REPORT (SQ) ---
EXAM DESCRIPTION: CHEST SINGLE VIEW COMPLETED DATE/TIME: 02/17/2019 8:25 am REASON FOR STUDY: ARDS COMPARISON: AP view of the chest from 02/16/2019. EXAM PARAMETERS: NUMBER OF VIEWS: One view. TECHNIQUE: Single frontal radiographic view of the chest acquired. RADIATION DOSE: NA LIMITATIONS: None. FINDINGS: LUNGS AND PLEURA: Unchanged radiographic appearance of the chest with dense consolidation throughout the left lung with interspersed bronchograms that obscures the contour of the left hemidia phragm and blunts the left costophrenic sulcal and patchy airspace opacities on the contralateral buster e. MEDIASTINUM AND HILAR STRUCTURES: Unchanged mediastinal and hilar contours. HEART AND VASCULAR STRUCTURES: The cardiac silhouette is partially obscured. BONES: No acute findings. HARDWARE: The tip of the endotracheal tube projects 4.1 cm above the chichi. The tip of the enteric tube projects past the gastroesophageal junction and outside the field of view of the radiograph. Th e tip of the right IJ central venous catheter projects within the SVC. OTHER: No other finding. IMPRESSION: 1. Tubes and lines as above. 2. Unchanged radiographic appearance of the chest. TECHNICAL DOCUMENTATION: JOB ID: [id number] [employer]- All Rights Reserved Reading location - IP/workstation name: [email or web address]
[2019-02-17] MEDS: HYDROCORTISONE SOD SUCCINATE INJ/PF 100 MG/2 ML SDV IV SCH ×2 (09:36→22:01)
[2019-02-17] MEDS: FAMOTIDINE 20 MG TABLET PO SCH ×2 (09:36→22:00)
[2019-02-17] MEDS: FUROSEMIDE INJ/PF 20 MG/2 ML SDV IV SCH (09:36)
[2019-02-17] MEDS: THIAMINE HCL 500 MG, FOLIC ACID 1 MG in NORMAL SALINE 250 ML IV SCH (09:42)
[2019-02-17] MEDS: QUETIAPINE FUMARATE 25 MG TABLET PO SCH ×2 (09:42→22:00)
[2019-02-17] MEDS: SILVER SULFADIAZINE 1% CREAM 400 GM TP SCH ×2 (10:20→18:24)
[2019-02-17] MEDS: DEXMEDETOMIDINE IN NS 400 MCG/100 ML RTUPB IV PRN ×3 (12:24→23:15)
[2019-02-17] MEDS ORDERED: MIDAZOLAM 2 MG/2 ML INJ ONE (16:48)
--- NOTE | 2019-02-17 18:23 | RADIOLOGY REPORT (SQ) ---
EXAM DESCRIPTION: CHEST SINGLE VIEW COMPLETED DATE/TIME: 02/17/2019 5:12 pm REASON FOR STUDY: S/P Lung Biopsy COMPARISON: 02/17/2019 EXAM PARAMETERS: NUMBER OF VIEWS: One view. TECHNIQUE: Single frontal radiographic view of the chest acquired. RADIATION DOSE: NA LIMITATIONS: None. FINDINGS: LUNGS AND PLEURA: Dense opacification in the left lung with scattered air bronchograms. M ild pulmonary edema is evident on the right. MEDIASTINUM AND HILAR STRUCTURES: No masses. Contour normal. HEART AND VASCULAR STRUCTURES: Heart size is indeterminate. BONES: No acute findings. HARDWARE: Endotracheal tube, right subclavian catheter, and NG tube are unchanged. OTHER: No other significant finding. IMPRESSION: There is no significant interval change since the earlier study. TECHNICAL DOCUMENTATION: JOB ID: [id number] [employer]- All Rights Reserved Reading location - IP/workstation name: [email or web address]
[2019-02-17] MEDS ORDERED: ALBUMIN HUMAN 25 GM/100 ML RTUINJ IV ONE (19:00)
[2019-02-17] MEDS ORDERED: MIDAZOLAM 2 MG/2 ML INJ IV ONE (19:15)
[2019-02-17] MEDS: LORAZEPAM INJ 2 MG/1 ML VIAL IV PRN ×2 (20:21→23:17)
--- NOTE | 2019-02-17 20:32 | Progress Note ---
Provider Note Provider Note: Procedure: Disposable flexible bronchoscopy Procedure diagnosis: Consolidated left lung with concern for obstructive pneumonia Post procedure diagnosis: Severe mucous obstruction with bronchopneumonia: No evidence of bronchial mass Proceduralist: Paige Assistance: Bedside nursing staff Estimated blood loss: None Complications: None Procedure: Patient was approved identified secondary to ongoing critical care chart check and invasive. Consent was obtained from the mother and stepfather. Ventilator was appropriately adjusted to support oxygenation. Using an already present ET tube the disposable Flexible bronchoscope was entered. Patient was sedated with Dilaudid and Versed and propofol On entrance into the ET tube significant mucus obstruction was noted in the left main bronchus. Extensive amount of time was taken to lavage and irrigate the significant inspissated secretions. A rust colored in nature. Valuation of all the bronchial segments into the secondary segments was done and lavage was carried out until clearance. It is much as could be evaluated due to the confines of the ET tube there were no endobronchial lesions or masses. There is no bleeding. Mucosa was relatively healthy. He had normal bronchial segments. The right lung was briefly evaluated for any inspissated secretions. These were essentially clear. The left lingula was interrogated and BAL was done there and in the lower left segment. She tolerated procedure well Seizure excludes critical care time Coding: Diagnostic and therapeutic bronchoscopy with lavage, first encounter
--- NOTE | 2019-02-17 20:44 | PDOC PROGRESS REPORT ---
Subjective Progress Note for:: 02/17/19 Subjective:: 02.17.19: Patient had successful left pleural thoracentesis with removal of approximately 900 ml of fluid. Chest xray improved as far as effusion but consolidation significant. Hemodynamics remain stable. No seizures, no fever 02.16.19: Patient's oxygen requirements have been reduced and his fever profile has improved. He has been more agitated requiring more propofol. Notably his triglyceride levels are not significantly elevated but are on the higher range of normal. The plans below. On ultrasound at bedside done by this author rosy moeller has increase in pleural effusion on the left. Chest x-ray shows continued consolidation. There is some compression artifact most likely related to the effusion. He no longer has hypotension. No signs of sepsis at this time. 02.15.19: Patient has had intermittent agitation. Had another fever last evening however not as significant or as high as previous. He remains off of vasopressor therapy. He still has significant consolidation of the left lung and a CT scan was ordered. This shows extensive dense consolidation. Because of this he was transitioned to the linezolid to achieve better lung penetration. Cultures are still negative however patient has been on antibiotics when they were obtained. Critical care ultrasound shows a small pleural effusion and what appears to be tethering of the lung. The effusion is small on CT scan. No foreign bodies were seen. Still requires both propofol and Dexemedatomidine for agitation. This has improved. 02.14.19: Patient's condition has improved but he is still critical. Retention has resolved and he is now weaned off levophed. He was started on Solu-Cortef because of the inflammatory response in for a cortisol level of 10. On sedation wean he does completely respond and follow commands. His tachycardia has improved and his temperature profile has reduced. Critical care ultrasound was done to evaluate fluid status. His IVC is dilated and does not have respirophasic changes. He appears adequately volume resuscitated. 02.13.19: Patient noted to be tachypneic and tachycardic. His oxygen saturation has improved but respiratory rate has worsened. He is slightly confused. Blood pressures are in the low 90s systolic. He denies any complaints. His mother states that the patient has been extremely depressed recently. Reason For Visit: PNEUMONIA,ACUTE HYPOXIC RESPIRATORY FAILURE,SIRS Physical Exam Vital Signs: Temp Pulse Resp BP Pulse Ox 96.5 F L 72 20 162/92 H 91 L 02/17/19 06:00 02/17/19 04:14 02/17/19 06:00 02/16/19 20:00 02/17/19 06:00 Pulse Oximeter Continuous Start: 02/12/19 06: 14 Freq: RTQ4 Status: Complete Protocol: Document 02/12/19 10:31 [facility] (Rec: 02/12/19 10:32 [facility] [email or web address]) Pulse Oximetry Assessment Equipment Usage Equipment Standby Continuous SpO2 Machine # na Intake & Output 02/16/19 02/17/19 02/18/19 06:59 06:59 06:59 Intake Total 1785.2 1269.2 Output Total 2895 4980 Balance -1109.8 -3710.8 Weight 79.2 kg 77.3 kg Physical Exam: Intubated thin nontoxic 33-year-old male no acute distress he is responsive and follows commands General appearance: PRESENT: no acute distress, well-developed, well-nourished Head exam: PRESENT: atraumatic, normocephalic Eye exam: PRESENT: conjunctiva pink, PERRLA. ABSENT: conjunctival injection, nystagmus, scleral icterus Mouth exam: PRESENT: dry mucosa Teeth exam: PRESENT: poor dentation Neck exam: ABSENT: carotid bruit, JVD, lymphadenopathy, thyromegaly, tracheal deviation Respiratory exam: PRESENT: crackles - left side, rhonchi, unlabored. ABSENT: accessory muscle use, wheezes Cardiovascular exam: PRESENT: RRR, +S1, +S2 Pulses: PRESENT: normal carotid pulses, +2 pedal pulses bilateral Vascular exam: PRESENT: normal capillary refill GI/Abdominal exam: PRESENT: normal bowel sounds, soft. ABSENT: ascites, diminished bowel sounds, distended, firm, guarding, hyperactive bowel sounds, hypoactive bowel sounds, mass, Sharma's sign, organolmegaly, rebound, rigid, tenderness Gentrourinary exam: PRESENT: indwelling catheter Extremities exam: ABSENT: joint swelling, pedal edema Musculoskeletal exam: ABSENT: deformity, dislocation, normal inspection Neurological exam: ABSENT: altered, motor sensory deficit Psychiatric exam: PRESENT: agitated - agitated when stimulated. Skin exam: ABSENT: cyanosis Additional comments: Right medial forearm superficial abrasion is clean dry and intact and healing well. Abrasions to his right lower leg are healing and have minimal erythema. Results Laboratory Results: 02/17/19 06:00 02/16/19 02/16/19 02/17/19 14:18 14:18 06:00 Seg Neutrophils % Carbonic Acid HCO3/H2CO3 Ratio ABG pH ABG pCO2 ABG pO2 ABG HCO3 ABG O2 Saturation ABG Base Excess FiO2 Sodium Potassium Chloride Carbon Dioxide Anion Gap BUN Creatinine Est GFR ( Amer) Glucose Calcium Phosphorus Magnesium Ammonia Cancelled Total Protein 4.2 L Triglycerides Fluid Type PLEURAL Fluid Source LUNG Fluid Color YELLOW Fluid Appearance HAZY Fluid Viscosity LIQUID Fluid WBC 478 Fluid RBC 913 02/17/19 02/17/19 02/17/19 06:00 06:00 06:00 Seg Neutrophils % Not Reportable Carbonic Acid 1.24 HCO3/H2CO3 Ratio 23:1 ABG pH 7.46 H ABG pCO2 41.2 ABG pO2 59.7 L ABG HCO3 28.7 H ABG O2 Saturation 92.2 L ABG Base Excess 4.5 FiO2 50% Sodium 143.5 Potassium 3.5 L Chloride 110 H Carbon Dioxide 28 Anion Gap 6 BUN 15 Creatinine 0.43 L Est GFR ( Amer) > 60 Glucose 101 Calcium 7.5 L Phosphorus 3.7 Magnesium 2.3 Ammonia Total Protein Triglycerides 354 H Fluid Type Fluid Source Fluid Color Fluid Appearance Fluid Viscosity Fluid WBC Fluid RBC 02/12/19 06:24 Blood Blood Culture - Final NO GROWTH IN 5 DAYS 02/12/19 02:36 Blood Blood Culture - Final NO GROWTH IN 5 DAYS 02/13/19 14:50 Smith Catheter Legionella Urinary Antigen - Final 02/14/19 12:26 Tracheal Aspirate Gram Stain - Final 02/14/19 12:26 Tracheal Aspirate Sputum Culture - Final NO GROWTH 2 DAYS 02/13/19 02/13/19 02/13/19 14:50 14:50 21:17 Creatine Kinase 76 < 20 L Troponin I 0.020 Impressions: KUB X-Ray 02/13/19 09:59 IMPRESSION: SATISFACTORY POSITION OF THE NASOGASTRIC TUBE. NO RADIOGRAPHIC EVIDENCE FOR ACUTE ABDOMINAL DISEASE. Abdomen Ultrasound 02/14/19 00:00 IMPRESSION: Thickened gallbladder wall. No pericholecystic edema or stones. Fatty infiltrated liver with hepatomegaly. Abdomen/Pelvis CT 02/15/19 00:00 IMPRESSION: 1. Complete opacification of left hemithorax consistent with dense consolidation. Small left effusion. 2. Fairly extensive right upper and right lower lobe infiltrate consistent with pneumonia as well. Small right effusion. IMPRESSION: 1. Small amount of ascites. 2. Thickened gallbladder wall with surrounding inflammation. Acute cholecystitis cannot be excluded. Chest CT 02/15/19 00:00 IMPRESSION: 1. Complete opacification of left hemithorax consistent with dense consolidation. Small left effusion. 2. Fairly extensive right upper and right lower lobe infiltrate consistent with pneumonia as well. Small right effusion. IMPRESSION: 1. Small amount of ascites. 2. Thickened gallbladder wall with surrounding inflammation. Acute cholecystitis cannot be excluded. Status: Image reviewed by me Assessment & Plan - Diagnosis (1) ARDS (adult respiratory distress syndrome) Is this a current diagnosis for this admission?: Yes (2) Sepsis with encephalopathy and septic shock Qualifiers: Sepsis type: sepsis due to unspecified organism Qualified Code(s): A41.9 - Sepsis, unspecified organism; R65.21 - Severe sepsis with septic shock; G93.40 - Encephalopathy, unspecified Is this a current diagnosis for this admission?: Yes (3) Acute respiratory failure with hypoxia Is this a current diagnosis for this admission?: Yes (4) Aspiration pneumonia due to gastric secretions Qualifiers: Laterality: bilateral Lung location: unspecified part of lung Qualified Code(s): J69.0 - Pneumonitis due to inhalation of food and vomit Is this a current diagnosis for this admission?: Yes (5) Delirium due to another medical condition, acute, mixed level of activity Is this a current diagnosis for this admission?: Yes (6) Acute metabolic encephalopathy Is this a current diagnosis for this admission?: Yes (7) Alcohol abuse Is this a current diagnosis for this admission?: Yes (8) Alcohol withdrawal delirium Is this a current diagnosis for this admission?: Yes (9) Dehydration Is this a current diagnosis for this admission?: Yes (10) Electrolyte and fluid disorder Is this a current diagnosis for this admission?: Yes (11) Skin abrasion Is this a current diagnosis for this admission?: Yes (12) Thrombocytopenia Is this a current diagnosis for this admission?: Yes (13) Pleural cavity effusion Is this a current diagnosis for this admission?: Yes - Time Time Spent with patient: 35 or more minutes Total Critical Time (Minutes): 50 Level of Care: ICU Medications reviewed and adjusted accordingly: Yes Anticipated discharge: Other - Inpatient Certification Medical Necessity: Significant Comorbidiites Make Outpatient Treatment Too Risky, Need For IV Fluids, Need for IV Antibiotics, Risk of Complication if Not Cared For in Hospital - Plan Summary Plan Summary: 02.17.19: Patient's chest x-ray after bronchoscopy is slightly improved. He had significant mucus obstruction with dry inspissated secretions that were difficult to suction but were eventually able to be lavaged. The x-ray does show some better aeration in the left upper lobe. He will most likely need a repeat bronchoscopy but in the meantime we will perform percussion and drainage. Concerned about the amount of propofol that he has needed and will start the weaning process with the need for benzodiazepines. Although this is and not a first-line choice it will become important as we deal with his withdrawal. Thoracentesis done yesterday and bronchoscopy done today with specimen sent will need to be followed up on. I am hopeful that the Marilyn nasal lid will continue to help in with the lavage opening up lung segments I am hopeful the chest x-ray will continue to improve. Continue supportive care including nutritional support. Continue gastric ulcer prevention and DVT prevention. His oral access is been in place since 2018. They updated at bedside. 02.16.19: Patient has made some impressive improvements in the last 24 to 36 hours. He was started on Marilyn nasal lid in hopes to achieve better lung penetration. We will also perform bedside thoracentesis to help improve the compressive atelectasis changes and hopefully aerate the lung. labs sent for analysis. I have increased his Seroquel to help with agitation and psychomotor restlessness. Because of the nasal lid I discontinued any fentanyl use. Continue high-dose thiamine and continue nutritional support Hopefully will be able to continue to wean ventilator settings with the removal of pleural fluid. We will continue diuresis. Continue supportive care. Ordered EKG to evaluate QT interval. If greater than 490 mS will need to discontinue Seroquel. Present Gram stain still remain negative. Should this continue and the chest x- ray does not improve we may be forced to perform bronchoscopy. The possibility of an underlying lymphoma or malignancy would need to be considered if there is poor clearance. Chest CT done shows extensive consolidation. 02.15.19: I am concerned about the deep and dense consolidation of the left lung. For this reason I have transitioned him to Linezolid which achieves better concentrated drug deposition. At this point his effusion is still too small to attempt to remove and with the lung tethering and dense consolidation predisposes him to injury. Continue to monitor and follow accordingly. He is improving from his sepsis crisis and his ARDS is improved. His PF ratio has improved to above 200. These are helpful signs the patient's mortality and morbidity are moving in a positive direction. Continue tube feeds and have spoken with nutrition. Patient has a right subclavian central line and a right radial arterial catheter which are necessary for his critical care and we will maintain these. He also has a Smith catheter and will attempt to see if a condom type catheter would be better suited. We will continue supportive care and continue to monitor microbiological data. Updated family at bedside 02.14.19: Patient has made dramatic improvement in the last 18 hours. The respiratory standpoint his PF ratio has improved to 133. Will continue to wean FiO2. Continue low tidal volume strategy and aim to keep plateau pressure less than 30. From an infectious disease standpoint no cultures have grown any organisms. We will continue broad-spectrum antibiotics. This also could represent significant pneumonitis that is not infectious. Unfortunately we do not have a procalcitonin to delineate between the 2 processes. Patient has a relative cortisol deficiency. Have started replacement. He has thrombus cytopenia related to sepsis and this is improving. We will continue to monitor this while on subcutaneous heparin. Fever curve has improved dramatically and will continue to monitor. No evidence to support a hyperthermic process. Will restart Seroquel and follow supportively. Seroquel be started secondary to chronic alcohol use syndrome--will follow Qtc and increase dosing if delirium is not improved. Patient has superficial tissue avulsion injury to the right lower arm and will continue to place Silvadene and dressings on. Hypotension related to sepsis is dramatically improved and will start diuresis. On examination patient appears to be euvolemic and I am concerned that excess lung volume may be contributing to his chest x-ray. To need to provide supportive care start nutritional support. He is on high- dose thiamine and folate. He does have small pleural effusion on the left side which is the affected side. We will continue to monitor this. If his fever persists we may be forced to perform thoracentesis. We will follow the amount of fluid with diuresis. Patient seen in multidisciplinary rounds. Care of in ICU patient is ongoing and dynamic. This note represents a static representation of ongoing care in the last 24 hours. Was given completed and entered via computer are not always reflective of actual time done. Medical power of account development manager is: Mother Patient requires ICU care secondary to acute respiratory distress with hypoxia, alcohol withdrawal related delirium and encephalopathy, metabolic
[2019-02-17] MEDS: AZITHROMYCIN 500 MG in DEXTROSE 5%-WATER 250 ML IV SCH (23:17)
[2019-02-18] MEDS: ALBUTEROL SULFATE 0.083% NEB 2.5 MG/3 ML AMPUL NEB SCH ×6 (00:05→20:40)
[2019-02-18] MEDS: LINEZOLID 600 MG/300 ML RTUPB IV SCH ×2 (03:04→11:34)
[2019-02-18] MEDS: LORAZEPAM INJ 2 MG/1 ML VIAL IV PRN (03:05)
[2019-02-18] MEDS: DEXMEDETOMIDINE IN NS 400 MCG/100 ML RTUPB IV PRN ×7 (03:05→23:55)
[2019-02-18] MEDS: HYDROMORPHONE HCL INJ/PF 2 MG/ML AMPULE IV PRN ×6 (03:22→20:37)
[2019-02-18] MEDS: PROPOFOL 1,000 MG/100 ML INFUS..BTL IV PRN (03:23)
[2019-02-18 06:03] LABS: HEMATOCRIT 25.8 % (37.9-51.0); HEMOGLOBIN 8.8 g/dL (13.5-17.0); MEAN CORPUSCULAR HEMOGLOBIN 34.2 pg (27.0-33.4); MEAN CORPUSCULAR HGB CONC 33.9 g/dL (32.0-36.0); MEAN CORPUSCULAR VOLUME 101 fl (80-97); PLATELET COUNT 365 10^3/uL (150-450); RED BLOOD COUNT 2.56 10^6/uL (4.35-5.55); RED CELL DISTRIBUTION WIDTH 13.3 % (11.5-14.0); WHITE BLOOD COUNT 9.6 10^3/uL (4.0-10.5)
[2019-02-18 06:04] LABS: ARTERIAL BLOOD BASE EXCESS 4.8 mmol/L; ARTERIAL BLOOD H2CO3 1.23 mmol/L (1.05-1.35); ARTERIAL BLOOD HCO3 28.9 mmol/L (20-24); ARTERIAL BLOOD O2 SATURATION 94.9 % (94-98); ARTERIAL BLOOD PCO2 40.7 mmHg (35-45); ARTERIAL BLOOD PH 7.47 (7.35-7.45); ARTERIAL BLOOD PO2 69.8 mmHg (80-100); ARTERIAL BLOOD TOTAL CO2 30.1 mmol/L (23-27)
[2019-02-18 06:05] LABS: ARTERIAL BLOOD FIO2 40%
[2019-02-18] MEDS: HEPARIN SOD (PORCINE) 5,000 UNIT/ML 1 ML VIAL SUBCUT SCH ×3 (06:05→22:08)
[2019-02-18] MEDS: MEROPENEM 1 GM in NORMAL SALINE 50 ML IV SCH ×3 (06:05→22:13)
[2019-02-18 06:19] LABS: ALBUMIN 2.4 g/dL (3.5-5.0); ALKALINE PHOSPHATASE 109 U/L (38-126); ANION GAP 5 (5-19); ASPARTATE AMINO TRANSFERASE 72 U/L (17-59); BILIRUBIN,DIRECT 2.9 mg/dL (0.0-0.4); BILIRUBIN,TOTAL 3.9 mg/dL (0.2-1.3); BLOOD UREA NITROGEN 14 mg/dL (7-20); CALCIUM 7.9 mg/dL (8.4-10.2); CARBON DIOXIDE 30 mmol/L (22-30); CHLORIDE 109 mmol/L (98-107); GLUCOSE 110 mg/dL (75-110); PHOSPHORUS 3.4 mg/dL (2.5-4.5); POTASSIUM 3.5 mmol/L (3.6-5.0); TRIGLYCERIDES 258 mg/dL (<150)
--- NOTE | 2019-02-18 06:25 | PDOC PROGRESS REPORT ---
Subjective Progress Note for:: 02/18/19 Subjective:: Intubated and sedated. Has been agitated. Reason For Visit: PNEUMONIA,ACUTE HYPOXIC RESPIRATORY FAILURE,SIRS Physical Exam Vital Signs: Temp Pulse Resp BP Pulse Ox 97.5 F 88 18 144/93 H 92 02/18/19 06:00 02/18/19 04:05 02/18/19 06:00 02/18/19 05:49 02/18/19 06:00 Pulse Oximeter Continuous Start: 02/12/19 06:14 Freq: RTQ4 Status: Complete Protocol: Document 02/12/19 10:31 [facility] (Rec: 02/12/19 10:32 [facility] [email or web address]) Pulse Oximetry Assessment Equipment Usage Equipment Standby Continuous SpO2 Machine # na Intake & Output 02/16/19 02/17/19 02/18/19 06:59 06:59 06:59 Intake Total 2478.2 2409.2 1960.2 Output Total 2895 4980 1585 Balance -416.8 -2570.8 375.2 Weight 79.2 kg 77.3 kg 78.5 kg General appearance: PRESENT: other - Sedated Head exam: PRESENT: atraumatic Eye exam: PRESENT: PERRLA Ear exam: PRESENT: normal external ear exam Mouth exam: PRESENT: moist, tongue midline Additional comments: ETT and OG present Neck exam: PRESENT: full ROM. ABSENT: carotid bruit, JVD, lymphadenopathy, thyromegaly Respiratory exam: PRESENT: clear to auscultation raul, decreased breath sounds, unlabored Cardiovascular exam: PRESENT: RRR, tachycardia Vascular exam: PRESENT: normal capillary refill GI/Abdominal exam: PRESENT: normal bowel sounds, soft. ABSENT: distended, guarding, mass, organolmegaly, rebound, tenderness Rectal exam: PRESENT: deferred Gentrourinary exam: PRESENT: indwelling catheter Additional comments: Slight edema in arms Musculoskeletal exam: PRESENT: full ROM, normal inspection Neurological exam: PRESENT: altered Results Laboratory Results: 02/17/19 02/17/19 02/17/19 06:00 06:00 06:00 WBC RBC Hgb Hct MCV MCH MCHC RDW Plt Count Seg Neutrophils % Carbonic Acid 1.24 HCO3/H2CO3 Ratio 23:1 ABG pH 7.46 H ABG pCO2 41.2 ABG pO2 59.7 L ABG HCO3 28.7 H ABG O2 Saturation 92.2 L ABG Base Excess 4.5 FiO2 50% Sodium 143.5 Potassium 3.5 L Chloride 110 H Carbon Dioxide 28 Anion Gap 6 BUN 15 Creatinine 0.43 L Est GFR ( Amer) > 60 Glucose 101 Calcium 7.5 L Phosphorus 3.7 Magnesium 2.3 Ammonia Cancelled Triglycerides 354 H Fluid Type Fluid Source Fluid Color Fluid Appearance Fluid Viscosity Fluid WBC Fluid RBC 02/17/19 02/17/19 02/17/19 06:00 06:55 16:45 WBC 12.2 H RBC 2.70 L Hgb 9.3 L Hct 27.1 L MCV 101 H MCH 34.3 H MCHC 34.1 RDW 13.7 Plt Count 291 Seg Neutrophils % Not Reportable Carbonic Acid HCO3/H2CO3 Ratio ABG pH ABG pCO2 ABG pO2 ABG HCO3 ABG O2 Saturation ABG Base Excess FiO2 Sodium Potassium Chloride Carbon Dioxide Anion Gap BUN Creatinine Est GFR ( Amer) Glucose Calcium Phosphorus Magnesium Ammonia < 8.7 L Triglycerides Fluid Type Cancelled Fluid Source Cancelled Fluid Color Cancelled Fluid Appearance Cancelled Fluid Viscosity Cancelled Fluid WBC Cancelled Fluid RBC Cancelled 02/18/19 02/18/19 05:45 05:45 WBC RBC Hgb Hct MCV MCH MCHC RDW Plt Count Seg Neutrophils % Not Reportable Carbonic Acid 1.23 HCO3/H2CO3 Ratio 23:1 ABG pH 7.47 H ABG pCO2 40.7 ABG pO2 69.8 L ABG HCO3 28.9 H ABG O2 Saturation 94.9 ABG Base Excess 4.8 FiO2 40% Sodium Potassium Chloride Carbon Dioxide Anion Gap BUN Creatinine Est GFR ( Amer) Glucose Calcium Phosphorus Magnesium Ammonia Triglycerides Fluid Type Fluid Source Fluid Color Fluid Appearance Fluid Viscosity Fluid WBC Fluid RBC 02/12/19 06:24 Blood Blood Culture - Final NO GROWTH IN 5 DAYS 02/12/19 02:36 Blood Blood Culture - Final NO GROWTH IN 5 DAYS 02/13/19 02/13/19 02/13/19 14:50 14:50 21:17 Creatine Kinase 76 < 20 L Troponin I 0.020 Impressions: KUB X-Ray 02/13/19 09:59 IMPRESSION: SATISFACTORY POSITION OF THE NASOGASTRIC TUBE. NO RADIOGRAPHIC EVIDENCE FOR ACUTE ABDOMINAL DISEASE. Abdomen Ultrasound 02/14/19 00:00 IMPRESSION: Thickened gallbladder wall. No pericholecystic edema or stones. Fatty infiltrated liver with hepatomegaly. Abdomen/Pelvis CT 02/15/19 00:00 IMPRESSION: 1. Complete opacification of left hemithorax consistent with dense consolidation. Small left effusion. 2. Fairly extensive right upper and right lower lobe infiltrate consistent with pneumonia as well. Small right effusion. IMPRESSION: 1. Small amount of ascites. 2. Thickened gallbladder wall with surrounding inflammation. Acute cholecystitis cannot be excluded. Chest CT 02/15/19 00:00 IMPRESSION: 1. Complete opacification of left hemithorax consistent with dense consolidation. Small left effusion. 2. Fairly extensive right upper and right lower lobe infiltrate consistent with pneumonia as well. Small right effusion. IMPRESSION: 1. Small amount of ascites. 2. Thickened gallbladder wall with surrounding inflammation. Acute cholecystitis cannot be excluded. Assessment & Plan - Diagnosis (1) Aspiration into respiratory tract Qualifiers: Encounter type: initial encounter Qualified Code(s): T17.908A - Unspecified foreign body in respiratory tract, part unspecified causing other injury, initial encounter Is this a current diagnosis for this admission?: Yes Plan: Likely the cause of decompensation that broght him to the ICU. (2) Acute respiratory failure with hypoxia Is this a current diagnosis for this admission?: Yes Plan: He is not extubatable but some excersizing on ventilator to asses strength of respiratory effort (3) Community acquired pneumonia Qualifiers: Laterality: left Lung location: lower lobe of lung Qualified Code(s): J18.1 - Lobar pneumonia, unspecified organism Is this a current diagnosis for this admission?: Yes Plan: Day 5 of meropenem and day 2 of linezolid. (4) Sepsis Qualifiers: Sepsis type: sepsis due to unspecified organism Severe sepsis acute organ dysfunction type: acute respiratory failure Acute respiratory failure type: with hypoxia Severe sepsis shock status: without septic shock Is this a current diagnosis for this admission?: Yes Plan: Resolved - Time Time Spent with patient: 35 Time Spent with patient: 35 or more minutes Total Critical Time (Minutes): 35 Level of Care: ICU Medications reviewed and adjusted accordingly: Yes Anticipated discharge: Home Within: Other - Inpatient Certification Based on my medical assessment, after consideration of the patient's comorbidities, presenting symptoms, or acuity I expect that the services needed warrant INPATIENT care.: Yes I certify that my determination is in accordance with my understanding of Medicare's requirements for reasonable and necessary INPATIENT services [42 CFR 412.3e].: Yes Medical Necessity: Failure to Improve With Outpatient Therapy, Need Close Monitoring Due to Risk of Patient Decompensation, Need For IV Fluids, Need For Continuous Telemetry Monitoring, Need for Nebulizer Therapy and Monitoring of Response, Need for IV Antibiotics, Risk of Complication if Not Cared For in Hospital
[2019-02-18 06:32] LABS: ABSOLUTE LYMPHOCYTES# (MANUAL) 0.6 10^3/uL (0.5-4.7); ABSOLUTE MONOCYTES # (MANUAL) 0.5 10^3/uL (0.1-1.4); BAND NEUTROPHILS % (MANUAL) 5 % (3-5); BASOPHILS % (MANUAL) 0 % (0-2); EOSINOPHILS % (MANUAL) 0 % (0-6); LYMPHOCYTES % (MANUAL) 6 % (13-45); MONOCYTES % (MANUAL) 5 % (3-13); SEGMENTED NEUTROPHILS % (MAN) 84 % (42-78); TOTAL CELLS COUNTED 100
[2019-02-18 06:33] LABS: HYPOCHROMASIA 2+; PLATELET COMMENT ADEQUATE
[2019-02-18] MEDS ORDERED: MIDAZOLAM HCL 50 MG/100 ML RTUINJ IV PRN (08:19)
[2019-02-18] MEDS: MIDAZOLAM HCL 50 MG/100 ML RTUINJ IV PRN ×2 (08:42→22:14)
--- NOTE | 2019-02-18 08:55 | RADIOLOGY REPORT (SQ) ---
EXAM DESCRIPTION: CHEST SINGLE VIEW COMPLETED DATE/TIME: 02/18/2019 6:26 am REASON FOR STUDY: pneumonia COMPARISON: 02/17/2019 EXAM PARAMETERS: NUMBER OF VIEWS: One view TECHNIQUE: Single frontal radiograph of the chest. RADIATION DOSE: N/A LIMITATIONS: None. FINDINGS: TEMPORARY SUPPORT DEVICES:ETT in expected location. NG tube courses below the olnnie-diaphr agm in to the stomach. Central venous access catheter tip is in expected location. LUNGS AND PLEURA: Extremely dense opacity in the left lung combination of effusion and pneumonia. Le ss prominent changes in the right lung. No interval improvement. Likely left effusion. No masses. No pneumothorax. MEDIASTINUM AND HILAR STRUCTURES: No masses. Contour normal. HEART AND VASCULAR STRUCTURES: Heart normal in size. normal vascularity. Aorta normal for age. BONES: No acute findings. OTHER: No other significant finding. IMPRESSION: Extensive pneumonia with left pleural effusion. No improvement. SUPPORT DEVICE(S) IN EXPECTED LOCATIONS. TECHNICAL DOCUMENTATION: JOB ID: [id number] [employer]- All Rights Reserved Reading location - IP/workstation name: HAL
[2019-02-18] MEDS: FAMOTIDINE 20 MG TABLET PO SCH ×2 (09:28→22:08)
[2019-02-18] MEDS: THIAMINE HCL 500 MG, FOLIC ACID 1 MG in NORMAL SALINE 250 ML IV SCH (09:29)
[2019-02-18] MEDS: HYDROCORTISONE SOD SUCCINATE INJ/PF 100 MG/2 ML SDV IV SCH ×2 (09:29→22:06)
[2019-02-18] MEDS: SILVER SULFADIAZINE 1% CREAM 400 GM TP SCH ×2 (09:30→17:53)
[2019-02-18] MEDS: QUETIAPINE FUMARATE 25 MG TABLET PO SCH (09:40)
[2019-02-18] MEDS: NICOTINE 21 MG/24 HR PATCH.TD24 TD PRN (11:34)
--- NOTE | 2019-02-18 12:58 | EKG REPORT ---
SEVERITY:- BORDERLINE ECG - SINUS RHYTHM BORDERLINE T ABNORMALITIES, ANT-LAT LEADS : Confirmed by: Hawa Nur MD 18-Feb-2019 12:58:04
[2019-02-18] MEDS: AZITHROMYCIN 500 MG in DEXTROSE 5%-WATER 250 ML IV SCH (22:14)
[2019-02-18] MEDS: QUETIAPINE FUMARATE 100 MG TABLET PO SCH (22:23)
[2019-02-19] MEDS: LINEZOLID 600 MG/300 ML RTUPB IV SCH ×3 (00:27→23:22)
[2019-02-19] MEDS: ALBUTEROL SULFATE 0.083% NEB 2.5 MG/3 ML AMPUL NEB SCH ×6 (00:34→20:57)
[2019-02-19] MEDS: HYDROMORPHONE HCL INJ/PF 2 MG/ML AMPULE IV PRN ×3 (02:19→14:39)
[2019-02-19] MEDS: DEXMEDETOMIDINE IN NS 400 MCG/100 ML RTUPB IV PRN ×4 (03:29→13:04)
[2019-02-19] MEDS: MEROPENEM 1 GM in NORMAL SALINE 50 ML IV SCH ×3 (05:08→22:52)
[2019-02-19] MEDS: HEPARIN SOD (PORCINE) 5,000 UNIT/ML 1 ML VIAL SUBCUT SCH ×3 (05:57→22:52)
--- NOTE | 2019-02-19 08:50 | PDOC PROGRESS REPORT ---
Subjective Progress Note for:: 02/19/19 Subjective:: Patient awake and seemingly no complaints. Reason For Visit: PNEUMONIA,ACUTE HYPOXIC RESPIRATORY FAILURE,SIRS Physical Exam Vital Signs: Temp Pulse Resp BP Pulse Ox 98.2 F 72 19 149/93 H 97 02/19/19 08:00 02/19/19 08:00 02/19/19 08:00 02/19/19 08:00 02/19/19 08:00 Pulse Oximeter Continuous Start: 02/12/19 06:14 Freq: RTQ4 Status: Complete Protocol: Document 02/12/19 10:31 [facility] (Rec: 02/12/19 10:32 [facility] [id number]) Pulse Oximetry Assessment Equipment Usage Equipment Standby Continuous SpO2 Machine # na Intake & Output 02/18/19 02/19/19 02/20/19 06:59 06:59 06:59 Intake Total 2560.2 2188.2 Output Total 1585 1955 65 Balance 975.2 233.2 -65 Weight 78.5 kg 78.2 kg General appearance: PRESENT: no acute distress, well-developed, well-nourished Head exam: PRESENT: atraumatic, normocephalic Eye exam: PRESENT: conjunctiva pink, EOMI, PERRLA. ABSENT: scleral icterus Ear exam: PRESENT: normal external ear exam Mouth exam: PRESENT: moist, tongue midline Additional comments: ETT and OG present. Neck exam: PRESENT: full ROM. ABSENT: carotid bruit, JVD, lymphadenopathy, thyromegaly Respiratory exam: PRESENT: clear to auscultation raul, unlabored Additional comments: Moderate secretions and good cough. Cardiovascular exam: PRESENT: RRR. ABSENT: diastolic murmur, rubs, systolic murmur Vascular exam: PRESENT: normal capillary refill GI/Abdominal exam: PRESENT: normal bowel sounds, soft. ABSENT: distended, guarding, mass, organolmegaly, rebound, tenderness Rectal exam: PRESENT: deferred Gentrourinary exam: PRESENT: indwelling catheter Extremities exam: PRESENT: full ROM Musculoskeletal exam: PRESENT: full ROM, normal inspection Neurological exam: PRESENT: alert Skin exam: PRESENT: dry, intact, warm. ABSENT: cyanosis, rash Results Laboratory Results: 02/18/19 05:45 02/18/19 05:45 02/13/19 02/13/19 02/13/19 14:50 14:50 21:17 Creatine Kinase 76 < 20 L Troponin I 0.020 Impressions: KUB X-Ray 02/13/19 09:59 IMPRESSION: SATISFACTORY POSITION OF THE NASOGASTRIC TUBE. NO RADIOGRAPHIC EVIDENCE FOR ACUTE ABDOMINAL DISEASE. Abdomen Ultrasound 02/14/19 00:00 IMPRESSION: Thickened gallbladder wall. No pericholecystic edema or stones. Fatty infiltrated liver with hepatomegaly. Abdomen/Pelvis CT 02/15/19 00:00 IMPRESSION: 1. Complete opacification of left hemithorax consistent with dense consolidation. Small left effusion. 2. Fairly extensive right upper and right lower lobe infiltrate consistent with pneumonia as well. Small right effusion. IMPRESSION: 1. Small amount of ascites. 2. Thickened gallbladder wall with surrounding inflammation. Acute cholecystitis cannot be excluded. Chest CT 02/15/19 00:00 IMPRESSION: 1. Complete opacification of left hemithorax consistent with dense consolidation. Small left effusion. 2. Fairly extensive right upper and right lower lobe infiltrate consistent with pneumonia as well. Small right effusion. IMPRESSION: 1. Small amount of ascites. 2. Thickened gallbladder wall with surrounding inflammation. Acute cholecystitis cannot be excluded. Assessment & Plan - Diagnosis (1) Aspiration into respiratory tract Qualifiers: Encounter type: initial encounter Qualified Code(s): T17.908A - Unspecified foreign body in respiratory tract, part unspecified causing other injury, initial encounter Is this a current diagnosis for this admission?: Yes Plan: Resolved, not in ARDS (2) Acute respiratory failure with hypoxia Is this a current diagnosis for this admission?: Yes Plan: CXR looks a bit better. Try to extubate today. (3) Community acquired pneumonia Qualifiers: Laterality: left Lung location: lower lobe of lung Qualified Code(s): J18.1 - Lobar pneumonia, unspecified organism Is this a current diagnosis for this admission?: Yes Plan: Continue abx for a full 7 days. (4) Sepsis Qualifiers: Sepsis type: sepsis due to unspecified organism Severe sepsis acute organ dysfunction type: acute respiratory failure Acute respiratory failure type: with hypoxia Severe sepsis shock status: without septic shock Is this a current diagnosis for this admission?: Yes Plan: Resolved - Time Time Spent with patient: 35 or more minutes Total Critical Time (Minutes): 35 Level of Care: ICU Medications reviewed and adjusted accordingly: Yes Anticipated discharge: Home Within: Other - Inpatient Certification Based on my medical assessment, after consideration of the patient's comorbidities, presenting symptoms, or acuity I expect that the services needed warrant INPATIENT care.: Yes I certify that my determination is in accordance with my understanding of Medicare's requirements for reasonable and necessary INPATIENT services [42 CFR 412.3e].: Yes Medical Necessity: Failure to Improve With Outpatient Therapy, Need Close Monitoring Due to Risk of Patient Decompensation, Need For Continuous Telemetry Monitoring, Need for IV Antibiotics, Risk of Complication if Not Cared For in Hospital
--- NOTE | 2019-02-19 09:19 | RADIOLOGY REPORT (SQ) ---
EXAM DESCRIPTION: CHEST SINGLE VIEW COMPLETED DATE/TIME: 02/19/2019 7:08 am REASON FOR STUDY: Follow up for dense LLL pneumonia COMPARISON: 02/18/2019 EXAM PARAMETERS: NUMBER OF VIEWS: One view TECHNIQUE: Single frontal radiograph of the chest. RADIATION DOSE: N/A LIMITATIONS: None. FINDINGS: TEMPORARY SUPPORT DEVICES:ETT in expected location. NG tube courses below the lonnie-diaphr agm in to the stomach. Central venous access catheter tip is in expected location. LUNGS AND PLEURA: Minimal improvement in the appearance of the left lung. Dense opacity. Slightly b anamaria aeration. Patchy opacities on the right. Significant decrease in the left effusion. No masses. No pneumothorax. MEDIASTINUM AND HILAR STRUCTURES: No masses. Contour normal. HEART AND VASCULAR STRUCTURES: Heart normal in size. normal vascularity. Aorta normal for age. BONES: No acute findings. OTHER: No other significant finding. IMPRESSION: Mild improvement in the pneumonia. Decrease in the left effusion. SUPPORT DEVICE(S) IN EXPECTED LOCATIONS. TECHNICAL DOCUMENTATION: JOB ID: [id number] [employer]- All Rights Reserved Reading location - IP/workstation name: [email or web address]
[2019-02-19] MEDS: THIAMINE HCL 500 MG, FOLIC ACID 1 MG in NORMAL SALINE 250 ML IV SCH (10:02)
[2019-02-19] MEDS: QUETIAPINE FUMARATE 100 MG TABLET PO SCH ×2 (10:02→22:51)
[2019-02-19] MEDS: FAMOTIDINE 20 MG TABLET PO SCH ×2 (10:02→22:51)
[2019-02-19] MEDS: HYDROCORTISONE SOD SUCCINATE INJ/PF 100 MG/2 ML SDV IV SCH ×2 (10:02→22:53)
[2019-02-19] MEDS: SILVER SULFADIAZINE 1% CREAM 400 GM TP SCH ×2 (10:03→18:44)
[2019-02-19] MEDS: MIDAZOLAM HCL 50 MG/100 ML RTUINJ IV PRN (11:42)
--- NOTE | 2019-02-19 11:47 | Progress Note ---
Provider Note Provider Note: Patient's O2 saturations dropped to high 80s when PEEP decreased to 5 and FIO2 dropped to 35%. Extubation on hold.
[2019-02-19] MEDS ORDERED: OXYCODONE-ACETAMINOPHEN 5-325 MG TABLET PO PRN (20:22)
[2019-02-20] MEDS: ALBUTEROL SULFATE 0.083% NEB 2.5 MG/3 ML AMPUL NEB SCH ×6 (00:43→19:13)
[2019-02-20] MEDS: HEPARIN SOD (PORCINE) 5,000 UNIT/ML 1 ML VIAL SUBCUT SCH ×3 (05:02→22:14)
[2019-02-20] MEDS: MEROPENEM 1 GM in NORMAL SALINE 50 ML IV SCH (05:02)
[2019-02-20 05:39] LABS: HEMATOCRIT 25.1 % (37.9-51.0); HEMOGLOBIN 8.7 g/dL (13.5-17.0); MEAN CORPUSCULAR HEMOGLOBIN 34.5 pg (27.0-33.4); MEAN CORPUSCULAR HGB CONC 34.7 g/dL (32.0-36.0); MEAN CORPUSCULAR VOLUME 100 fl (80-97); PLATELET COUNT 514 10^3/uL (150-450); RED BLOOD COUNT 2.52 10^6/uL (4.35-5.55); WHITE BLOOD COUNT 10.9 10^3/uL (4.0-10.5)
[2019-02-20 05:53] LABS: ANION GAP 7 (5-19); BLOOD UREA NITROGEN 9 mg/dL (7-20); CALCIUM 7.6 mg/dL (8.4-10.2); CARBON DIOXIDE 31 mmol/L (22-30); CHLORIDE 105 mmol/L (98-107); GLUCOSE 78 mg/dL (75-110)
[2019-02-20 05:58] LABS: POTASSIUM 2.9 mmol/L (3.6-5.0)
[2019-02-20 06:24] LABS: ABSOLUTE LYMPHOCYTES# (MANUAL) 0.5 10^3/uL (0.5-4.7); ABSOLUTE MONOCYTES # (MANUAL) 0.4 10^3/uL (0.1-1.4); BAND NEUTROPHILS % (MANUAL) 3 % (3-5); BASOPHILS % (MANUAL) 0 % (0-2); EOSINOPHILS % (MANUAL) 0 % (0-6); HYPOCHROMASIA 2+; LYMPHOCYTES % (MANUAL) 5 % (13-45); MONOCYTES % (MANUAL) 4 % (3-13); SEGMENTED NEUTROPHILS % (MAN) 88 % (42-78); TOTAL CELLS COUNTED 100
[2019-02-20 06:25] LABS: PLATELET COMMENT INCREASED
[2019-02-20] MEDS: POTASSIUM CHLORIDE 20 MEQ/50 ML RTU IV SCH ×2 (06:45→08:35)
[2019-02-20] MEDS ORDERED: POTASSIUM CHLORIDE 10 MEQ CAPSULE.ER PO ONE (07:00)
[2019-02-20] MEDS: SILVER SULFADIAZINE 1% CREAM 400 GM TP SCH ×2 (10:30→17:22)
[2019-02-20] MEDS: PREDNISONE 20 MG TABLET PO SCH ×2 (10:41→17:22)
[2019-02-20] MEDS: THIAMINE HCL 100 MG TABLET PO SCH (10:42)
[2019-02-20] MEDS: QUETIAPINE FUMARATE 100 MG TABLET PO SCH ×2 (10:42→22:13)
[2019-02-20] MEDS: MULTIVITAMIN TABLET PO SCH (10:42)
[2019-02-20] MEDS: FAMOTIDINE 20 MG TABLET PO SCH ×2 (10:43→22:14)
[2019-02-20] MEDS: FOLIC ACID 1 MG TABLET PO SCH (10:43)
--- NOTE | 2019-02-20 12:05 | PDOC PROGRESS REPORT ---
Subjective Progress Note for:: 02/20/19 Subjective:: Critical Care Progress Note No acute overnight events. Pt states he still is short of breath at times. He states that he has been out of bed. Reason For Visit: PNEUMONIA,ACUTE HYPOXIC RESPIRATORY FAILURE,SIRS Physical Exam Vital Signs: Temp Pulse Resp BP Pulse Ox 99.7 F 95 29 H 131/83 H 93 02/20/19 08:00 02/20/19 10:00 02/20/19 10:00 02/20/19 10:00 02/20/19 10:00 Pulse Oximeter Continuous Start: 02/12/19 06:14 Freq: RTQ4 Status: Complete Protocol: Document 02/12/19 10:[address] [facility] (Rec: 02/12/19 10:[address] [facility] [id number]) Pulse Oximetry Assessment Equipment Usage Equipment Standby Continuous SpO2 Machine # na Intake & Output 02/19/19 02/20/19 02/21/19 06:59 06:59 06:59 Intake Total 2188.2 1426.2 46 Output Total 1955 2995 550 Balance 233.2 -1568.8 -504 Weight 78.2 kg 76.7 kg General appearance: PRESENT: no acute distress, well-developed, well-nourished Respiratory exam: PRESENT: decreased breath sounds, unlabored Cardiovascular exam: PRESENT: RRR GI/Abdominal exam: PRESENT: soft Extremities exam: PRESENT: other - no edema Results Laboratory Results: 02/20/19 05:00 02/20/19 05:00 02/16/19 02/16/19 02/16/19 14:18 14:18 14:18 WBC RBC Hgb Hct MCV MCH MCHC RDW Plt Count Seg Neutrophils % Sodium Potassium Chloride Carbon Dioxide Anion Gap BUN Creatinine Est GFR ( Amer) Glucose Calcium Magnesium Fluid Glucose 121 Fluid Total Protein Fluid LDH 553 Fluid Amylase 40 02/16/19 02/20/19 02/20/19 14:18 05:00 05:00 WBC 10.9 H RBC 2.52 L Hgb 8.7 L Hct 25.1 L MCV 100 H MCH 34.5 H MCHC 34.7 RDW 13.0 Plt Count 514 H Seg Neutrophils % Not Reportable Sodium 143.0 Potassium 2.9 L* Chloride 105 Carbon Dioxide 31 H Anion Gap 7 BUN 9 Creatinine 0.41 L Est GFR ( Amer) > 60 Glucose 78 Calcium 7.6 L Magnesium Fluid Glucose Fluid Total Protein 2.1 Fluid LDH Fluid Amylase 02/20/19 05:00 WBC RBC Hgb Hct MCV MCH MCHC RDW Plt Count Seg Neutrophils % Sodium Potassium Chloride Carbon Dioxide Anion Gap BUN Creatinine Est GFR ( Amer) Glucose Calcium Magnesium 1.7 Fluid Glucose Fluid Total Protein Fluid LDH Fluid Amylase 02/16/19 14:18 Pleural Fluid - Left Pleural Effusion Fungal Smear - Final 02/16/19 14:18 Pleural Fluid - Left Pleural Effusion Fungal Smear - Final 02/17/19 16:45 Bronchial Washings Gram Stain - Final 02/17/19 16:45 Bronchial Washings Bronchial Washings Culture - Final NO GROWTH 3 DAYS 02/16/19 14:18 Pleural Fluid - Left Pleural Effusion Gram Stain - Final 02/16/19 14:18 Pleural Fluid - Left Pleural Effusion Body Fluid Culture - Final NO AEROBIC OR ANAEROBIC ORGANISMS RECOVERED 02/16/19 14:18 Pleural Fluid - Left Pleural Effusion AFB Smear Concentration - Final 02/16/19 14:18 Pleural Fluid - Left Pleural Effusion Acid Fast Bacilli Smear - Final 02/13/19 02/13/19 02/13/19 14:50 14:50 21:17 Creatine Kinase 76 < 20 L Troponin I 0.020 Impressions: KUB X-Ray 02/13/19 09:59 IMPRESSION: SATISFACTORY POSITION OF THE NASOGASTRIC TUBE. NO RADIOGRAPHIC EVIDENCE FOR ACUTE ABDOMINAL DISEASE. Abdomen Ultrasound 02/14/19 00:00 IMPRESSION: Thickened gallbladder wall. No pericholecystic edema or stones. Fatty infiltrated liver with hepatomegaly. Abdomen/Pelvis CT 02/15/19 00:00 IMPRESSION: 1. Complete opacification of left hemithorax consistent with dense consolidation. Small left effusion. 2. Fairly extensive right upper and right lower lobe infiltrate consistent with pneumonia as well. Small right effusion. IMPRESSION: 1. Small amount of ascites. 2. Thickened gallbladder wall with surrounding inflammation. Acute cholecystitis cannot be excluded. Chest CT 02/15/19 00:00 IMPRESSION: 1. Complete opacification of left hemithorax consistent with dense consolidation. Small left effusion. 2. Fairly extensive right upper and right lower lobe infiltrate consistent with pneumonia as well. Small right effusion. IMPRESSION: 1. Small amount of ascites. 2. Thickened gallbladder wall with surrounding inflammation. Acute cholecystitis cannot be excluded. Chest X-Ray 02/19/19 06:46 IMPRESSION: Mild improvement in the pneumonia. Decrease in the left effusion. SUPPORT DEVICE(S) IN EXPECTED LOCATIONS. Assessment & Plan - Diagnosis (1) ARDS (adult respiratory distress syndrome) Is this a current diagnosis for this admission?: Yes (2) Acute respiratory failure with hypoxia Is this a current diagnosis for this admission?: Yes (3) Aspiration pneumonia due to gastric secretions Qualifiers: Laterality: bilateral Lung location: unspecified part of lung Qualified Code(s): J69.0 - Pneumonitis due to inhalation of food and vomit Is this a current diagnosis for this admission?: Yes (4) Alcohol withdrawal delirium Is this a current diagnosis for this admission?: Yes (5) Pleural cavity effusion Is this a current diagnosis for this admission?: Yes - Time Time Spent with patient: 25-34 minutes Level of Care: ICU Provider Note Provider Note: Assessment: 33 yo man with acute respiratory failure, ARDS, aspiration PNA, pleural effusion, alcohol withdrawal. Plan: 1. Respiratory: acute respiratory failure, resolved. Pt extubated on 02/19. Stable on nasal cannula. Wean to RA as tolerated 2. Pulmonary: ARDS, aspiration PNA. Resolving. ATBX Day 7. On linezolid and meropenem. Pleural effusion, s/p thoracentesis on 02/16. s/p bronch on 02/17. Wean steroids 3. CV: heart rate and BP acceptable 4. Psych: ETOH withdrawal, encephalopathy, resolving. Remains on seroquel 5. Nutrition: advance diet as tolerated 6. Prophylaxis: sq heparin 7. PT consulted 8. Stable for transfer out of ICU
[2019-02-20] MEDS: LINEZOLID 600 MG/300 ML RTUPB IV SCH (12:15)
[2019-02-21] MEDS: LINEZOLID 600 MG/300 ML RTUPB IV SCH (00:45)
[2019-02-21] MEDS: ALBUTEROL SULFATE 0.083% NEB 2.5 MG/3 ML AMPUL NEB SCH ×6 (00:53→20:04)
[2019-02-21] MEDS: HEPARIN SOD (PORCINE) 5,000 UNIT/ML 1 ML VIAL SUBCUT SCH ×3 (05:35→22:26)
[2019-02-21] MEDS ORDERED: IPRATROPIUM/ALBUTEROL 0.5-2.5 MG/3 ML AMPUL NEB PRN (07:44)
[2019-02-21 08:38] LABS: HEMATOCRIT 23.5 % (37.9-51.0); MEAN CORPUSCULAR HEMOGLOBIN 34.1 pg (27.0-33.4); MEAN CORPUSCULAR HGB CONC 33.8 g/dL (32.0-36.0); MEAN CORPUSCULAR VOLUME 101 fl (80-97); PLATELET COUNT 541 10^3/uL (150-450); RED BLOOD COUNT 2.33 10^6/uL (4.35-5.55); RED CELL DISTRIBUTION WIDTH 13.1 % (11.5-14.0); WHITE BLOOD COUNT 11.4 10^3/uL (4.0-10.5)
[2019-02-21 08:47] LABS: HEMOGLOBIN 7.9 g/dL (13.5-17.0)
[2019-02-21 08:59] LABS: ANION GAP 5 (5-19); BLOOD UREA NITROGEN 13 mg/dL (7-20); CALCIUM 7.8 mg/dL (8.4-10.2); CARBON DIOXIDE 29 mmol/L (22-30); CHLORIDE 106 mmol/L (98-107); GLUCOSE 73 mg/dL (75-110)
--- NOTE | 2019-02-21 09:07 | PDOC PROGRESS REPORT ---
Subjective Progress Note for:: 02/21/19 Subjective:: Critical Care Progress Note Pt continue to c/o productive cough as well as occasional nausea and vomiting. Reason For Visit: PNEUMONIA,ACUTE HYPOXIC RESPIRATORY FAILURE,SIRS Physical Exam Vital Signs: Temp Pulse Resp BP Pulse Ox 99.2 F 86 14 131/83 H 97 02/21/19 07:37 02/21/19 08:14 02/21/19 08:14 02/21/19 07:37 02/21/19 08:14 Pulse Oximeter Continuous Start: 02/12/19 06:14 Freq: RTQ4 Status: Complete Protocol: Document 02/12/19 10:31 [facility] (Rec: 02/12/19 10:32 [facility] [id number]) Pulse Oximetry Assessment Equipment Usage Equipment Standby Continuous SpO2 Machine # na Intake & Output 02/20/19 02/21/19 02/22/19 06:59 06:59 06:59 Intake Total 1726.2 771 Output Total 2995 2470 Balance -1268.8 -1699 Weight 76.7 kg 76.7 kg General appearance: PRESENT: no acute distress, well-developed, well-nourished Respiratory exam: PRESENT: decreased breath sounds, unlabored Cardiovascular exam: PRESENT: RRR GI/Abdominal exam: PRESENT: soft Neurological exam: PRESENT: alert, awake Results Laboratory Results: 02/21/19 08:05 02/21/19 08:05 WBC 11.4 H RBC 2.33 L Hgb 7.9 L Hct 23.5 L MCV 101 H MCH 34.1 H MCHC 33.8 RDW 13.1 Plt Count 541 H Seg Neutrophils % Not Reportable 02/16/19 14:18 Pleural Fluid - Left Pleural Effusion Fungal Smear - Final 02/16/19 14:18 Pleural Fluid - Left Pleural Effusion Fungal Smear - Final 02/17/19 16:45 Bronchial Washings Gram Stain - Final 02/17/19 16:45 Bronchial Washings Bronchial Washings Culture - Final NO GROWTH 3 DAYS 02/16/19 14:18 Pleural Fluid - Left Pleural Effusion Gram Stain - Final 02/16/19 14:18 Pleural Fluid - Left Pleural Effusion Body Fluid Culture - Final NO AEROBIC OR ANAEROBIC ORGANISMS RECOVERED 02/16/19 14:18 Pleural Fluid - Left Pleural Effusion AFB Smear Concentration - Final 02/16/19 14:18 Pleural Fluid - Left Pleural Effusion Acid Fast Bacilli Smear - Final 02/13/19 02/13/19 02/13/19 14:50 14:50 21:17 Creatine Kinase 76 < 20 L Troponin I 0.020 Impressions: KUB X-Ray 02/13/19 09:59 IMPRESSION: SATISFACTORY POSITION OF THE NASOGASTRIC TUBE. NO RADIOGRAPHIC EVIDENCE FOR ACUTE ABDOMINAL DISEASE. Abdomen Ultrasound 02/14/19 00:00 IMPRESSION: Thickened gallbladder wall. No pericholecystic edema or stones. Fatty infiltrated liver with hepatomegaly. Abdomen/Pelvis CT 02/15/19 00:00 IMPRESSION: 1. Complete opacification of left hemithorax consistent with dense consolidation. Small left effusion. 2. Fairly extensive right upper and right lower lobe infiltrate consistent with pneumonia as well. Small right effusion. IMPRESSION: 1. Small amount of ascites. 2. Thickened gallbladder wall with surrounding inflammation. Acute cholecystitis cannot be excluded. Chest CT 02/15/19 00:00 IMPRESSION: 1. Complete opacification of left hemithorax consistent with dense consolidation. Small left effusion. 2. Fairly extensive right upper and right lower lobe infiltrate consistent with pneumonia as well. Small right effusion. IMPRESSION: 1. Small amount of ascites. 2. Thickened gallbladder wall with surrounding inflammation. Acute cholecystitis cannot be excluded. Chest X-Ray 02/19/19 06:46 IMPRESSION: Mild improvement in the pneumonia. Decrease in the left effusion. SUPPORT DEVICE(S) IN EXPECTED LOCATIONS. Assessment & Plan - Diagnosis (1) ARDS (adult respiratory distress syndrome) Is this a current diagnosis for this admission?: Yes (2) Acute respiratory failure with hypoxia Is this a current diagnosis for this admission?: Yes (3) Aspiration pneumonia due to gastric secretions Qualifiers: Laterality: bilateral Lung location: unspecified part of lung Qualified Code(s): J69.0 - Pneumonitis due to inhalation of food and vomit Is this a current diagnosis for this admission?: Yes (4) Alcohol withdrawal delirium Is this a current diagnosis for this admission?: Yes (5) Pleural cavity effusion Is this a current diagnosis for this admission?: Yes - Time Time Spent with patient: 25-34 minutes Level of Care: ICU Provider Note Provider Note: Assessment: 33 yo man with acute respiratory failure, ARDS, aspiration PNA, pleural effusion, alcohol withdrawal. Plan: 1. Respiratory: acute respiratory failure, resolved. Pt extubated on 02/19. On 5 liters nasal cannula. Wean to RA as tolerated 2. Pulmonary: ARDS,resolved, aspiration PNA. Resolving. ATBX Day 7. Off ATBX, linezolid and meropenen. Pleural effusion, s/p thoracentesis on 02/16. s/p bronch on 02/17. Wean steroids 3. CV: heart rate and BP acceptable 4. Psych: ETOH withdrawal, encephalopathy, resolved Remains on seroquel 5. ID: aspiration PNA. WBC has increased to 11.4. Has completed 7 days of ATBX, off linezolid and meropenem. Will monitor. 6. Heme: anemia of chronic disease. No active bleeding. 7. Nutrition: regular diet 8 Prophylaxis: sq heparin 9 Stable for transfer out of ICU
--- NOTE | 2019-02-21 09:08 | RADIOLOGY REPORT (SQ) ---
EXAM DESCRIPTION: CHEST SINGLE VIEW COMPLETED DATE/TIME: 02/16/2019 2:23 pm REASON FOR STUDY: post thoracentesis COMPARISON: AP view of the chest from 02/16/2019. EXAM PARAMETERS: NUMBER OF VIEWS: One view. TECHNIQUE: Single frontal radiographic view of the chest acquired. RADIATION DOSE: NA LIMITATIONS: None. FINDINGS: LUNGS AND PLEURA: Unchanged radiographic appearance of the chest with dense consolidation throughout the left lung with interspersed bronchograms that obscures the contour of the left hemidia phragm and blunts the left costophrenic sulcus and patchy airspace opacities on the contralateral buster e. MEDIASTINUM AND HILAR STRUCTURES: Stable mediastinal and hilar contours. HEART AND VASCULAR STRUCTURES: The cardiac silhouette is partially obscured. BONES: No acute findings. HARDWARE: The tip of the endotracheal tube projects 4.3 cm above the chichi. The tip of the enteric tube projects past the gastroesophageal junction and outside the field of view of the radiograph. The tip of the right-sided central venous catheter projects within the SVC. OTHER: No other finding. IMPRESSION: Unchanged radiographic appearance of the chest as detailed above. TECHNICAL DOCUMENTATION: JOB ID: [id number] [employer]- All Rights Reserved Reading location - IP/workstation name: [email or web address]
[2019-02-21] MEDS: MULTIVITAMIN TABLET PO SCH (09:11)
[2019-02-21] MEDS: THIAMINE HCL 100 MG TABLET PO SCH (09:12)
[2019-02-21] MEDS: FOLIC ACID 1 MG TABLET PO SCH (09:12)
[2019-02-21] MEDS: QUETIAPINE FUMARATE 100 MG TABLET PO SCH ×2 (09:12→22:26)
[2019-02-21] MEDS ORDERED: POTASSI CL 20 MEQ/50 ML RIDER 0 MEQ/0 ML RTUPB IV ONE ×2 (09:17→10:26)
[2019-02-21] MEDS: PREDNISONE 20 MG TABLET PO SCH (09:18)
[2019-02-21 09:19] LABS: ABSOLUTE LYMPHOCYTES# (MANUAL) 0.8 10^3/uL (0.5-4.7); BASOPHILS % (MANUAL) 0 % (0-2); EOSINOPHILS % (MANUAL) 1 % (0-6); LYMPHOCYTES % (MANUAL) 7 % (13-45); MONOCYTES % (MANUAL) 9 % (3-13); SEGMENTED NEUTROPHILS % (MAN) 83 % (42-78); TOTAL CELLS COUNTED 100
[2019-02-21] MEDS ORDERED: POTASSIUM CHLORIDE 10 MEQ CAPSULE.ER PO ONE ×3 (09:19→10:36)
[2019-02-21 09:21] LABS: TOXIC GRANULATION SLIGHT; TOXIC VACUOLATION PRESENT
[2019-02-21 09:22] LABS: PLATELET COMMENT INCREASED; PLATELET LARGE PRESENT; POLYCHROMASIA 1+
[2019-02-21 09:40] LABS: POTASSIUM 2.9 mmol/L (3.6-5.0)
[2019-02-21] MEDS: SILVER SULFADIAZINE 1% CREAM 400 GM TP SCH ×2 (13:39→17:33)
[2019-02-22] MEDS: ALBUTEROL SULFATE 0.083% NEB 2.5 MG/3 ML AMPUL NEB SCH ×6 (00:02→20:17)
[2019-02-22] MEDS: HEPARIN SOD (PORCINE) 5,000 UNIT/ML 1 ML VIAL SUBCUT SCH (06:12)
[2019-02-22 07:23] LABS: HEMATOCRIT 22.3 % (37.9-51.0); MEAN CORPUSCULAR HEMOGLOBIN 35.3 pg (27.0-33.4); MEAN CORPUSCULAR VOLUME 101 fl (80-97); PLATELET COUNT 570 10^3/uL (150-450); RED BLOOD COUNT 2.21 10^6/uL (4.35-5.55); WHITE BLOOD COUNT 11.3 10^3/uL (4.0-10.5)
[2019-02-22 07:33] LABS: HEMOGLOBIN 7.8 g/dL (13.5-17.0)
[2019-02-22 07:46] LABS: ANION GAP 8 (5-19); BLOOD UREA NITROGEN 13 mg/dL (7-20); CALCIUM 7.6 mg/dL (8.4-10.2); CARBON DIOXIDE 24 mmol/L (22-30); CHLORIDE 112 mmol/L (98-107); GLUCOSE 82 mg/dL (75-110); POTASSIUM 3.2 mmol/L (3.6-5.0)
[2019-02-22 08:01] LABS: ABSOLUTE LYMPHOCYTES# (MANUAL) 1.4 10^3/uL (0.5-4.7); ABSOLUTE MONOCYTES # (MANUAL) 1.1 10^3/uL (0.1-1.4); BASOPHILS % (MANUAL) 0 % (0-2); EOSINOPHILS % (MANUAL) 3 % (0-6); LYMPHOCYTES % (MANUAL) 12 % (13-45); MONOCYTES % (MANUAL) 10 % (3-13); SEGMENTED NEUTROPHILS % (MAN) 75 % (42-78); TOTAL CELLS COUNTED 100
[2019-02-22 08:02] LABS: PLATELET COMMENT INCREASED; POIKILOCYTOSIS 1+; POLYCHROMASIA SLIGHT; STOMATOCYTES 1+
--- NOTE | 2019-02-22 08:57 | RADIOLOGY REPORT (SQ) ---
EXAM DESCRIPTION: CHEST SINGLE VIEW COMPLETED DATE/TIME: 02/22/2019 8:25 am REASON FOR STUDY: pneumonia COMPARISON: 02/19/2019 EXAM PARAMETERS: NUMBER OF VIEWS: One view. TECHNIQUE: Single frontal radiographic view of the chest acquired. RADIATION DOSE: NA LIMITATIONS: None. FINDINGS: LUNGS AND PLEURA: Persistent multifocal opacification with dense consolidation of the left hemithorax. Mildly improved left perihilar aeration. Likely small left effusion. No appreciable p neumothorax. MEDIASTINUM AND HILAR STRUCTURES: Largely obscured. HEART AND VASCULAR STRUCTURES: Stable, largely obscured. BONES: No acute findings. HARDWARE: Extubation with removal of the enteric tube. OTHER: No other significant finding. IMPRESSION: Persistent multifocal bilateral airspace disease with dense opacification of the left he mithorax. Mildly improved left perihilar aeration. Mild left effusion. TECHNICAL DOCUMENTATION: JOB ID: [id number] [employer]- All Rights Reserved Reading location - IP/workstation name: [email or web address]
[2019-02-22] MEDS: FOLIC ACID 1 MG TABLET PO SCH (09:03)
[2019-02-22] MEDS: PREDNISONE 20 MG TABLET PO SCH (09:03)
[2019-02-22] MEDS: QUETIAPINE FUMARATE 100 MG TABLET PO SCH ×2 (09:03→21:09)
[2019-02-22] MEDS: THIAMINE HCL 100 MG TABLET PO SCH (09:03)
[2019-02-22] MEDS: MULTIVITAMIN TABLET PO SCH (09:03)
[2019-02-22] MEDS: SILVER SULFADIAZINE 1% CREAM 400 GM TP SCH ×2 (09:04→17:01)
--- NOTE | 2019-02-22 10:01 | PDOC PROGRESS REPORT ---
Subjective Progress Note for:: 02/22/19 Subjective:: 02/22/2019-weakness Reason For Visit: PNEUMONIA,ACUTE HYPOXIC RESPIRATORY FAILURE,SIRS Physical Exam Vital Signs: Temp Pulse Resp BP Pulse Ox 98.7 F 102 H 18 138/76 H 98 02/22/19 03:37 02/22/19 07:00 02/22/19 04:05 02/22/19 03:37 02/22/19 04:05 Pulse Oximeter Continuous Start: 02/12/19 06:14 Freq: RTQ4 Status: Complete Protocol: Document 02/12/19 10:31 [facility] (Rec: 02/12/19 10:32 [facility] [email or web address]) Pulse Oximetry Assessment Equipment Usage Equipment Standby Continuous SpO2 Machine # na Intake & Output 02/21/19 02/22/19 02/23/19 06:59 06:59 06:59 Intake Total 771 940 Output Total 2470 Balance -1699 940 Weight 76.7 kg 76 kg General appearance: PRESENT: no acute distress, well-developed, well-nourished Neck exam: ABSENT: carotid bruit, JVD, lymphadenopathy, thyromegaly Respiratory exam: PRESENT: clear to auscultation raul, decreased breath sounds, symmetrical, unlabored. ABSENT: rales, rhonchi, wheezes Cardiovascular exam: PRESENT: RRR. ABSENT: diastolic murmur, rubs, systolic murmur Pulses: PRESENT: normal dorsalis pedis pul GI/Abdominal exam: PRESENT: normal bowel sounds, soft. ABSENT: distended, guarding, mass, organolmegaly, rebound, tenderness Extremities exam: PRESENT: full ROM. ABSENT: calf tenderness, clubbing, pedal edema Neurological exam: PRESENT: alert, awake, oriented to person, oriented to place, oriented to time, oriented to situation, CN II-XII grossly intact. ABSENT: motor sensory deficit Psychiatric exam: PRESENT: appropriate affect, normal mood. ABSENT: homicidal ideation, suicidal ideation Skin exam: PRESENT: dry, intact, warm. ABSENT: cyanosis, rash Results Laboratory Results: 02/22/19 07:03 02/22/19 07:03 02/22/19 02/22/19 07:03 07:03 WBC 11.3 H RBC 2.21 L Hgb 7.8 L Hct 22.3 L MCV 101 H MCH 35.3 H MCHC 35.0 RDW 13.0 Plt Count 570 H Seg Neutrophils % Not Reportable Sodium 144.0 Potassium 3.2 L Chloride 112 H Carbon Dioxide 24 Anion Gap 8 BUN 13 Creatinine 0.44 L Est GFR ( Amer) > 60 Glucose 82 Calcium 7.6 L Magnesium 1.8 02/17/19 16:45 Bronchial Washings Chlamydia pneumoniae (PCR) - Final 02/13/19 02/13/19 02/13/19 14:50 14:50 21:17 Creatine Kinase 76 < 20 L Troponin I 0.020 Impressions: KUB X-Ray 02/13/19 09:59 IMPRESSION: SATISFACTORY POSITION OF THE NASOGASTRIC TUBE. NO RADIOGRAPHIC EVIDENCE FOR ACUTE ABDOMINAL DISEASE. Abdomen Ultrasound 02/14/19 00:00 IMPRESSION: Thickened gallbladder wall. No pericholecystic edema or stones. Fatty infiltrated liver with hepatomegaly. Abdomen/Pelvis CT 02/15/19 00:00 IMPRESSION: 1. Complete opacification of left hemithorax consistent with dense consolidation. Small left effusion. 2. Fairly extensive right upper and right lower lobe infiltrate consistent with pneumonia as well. Small right effusion. IMPRESSION: 1. Small amount of ascites. 2. Thickened gallbladder wall with surrounding inflammation. Acute cholecystitis cannot be excluded. Chest CT 02/15/19 00:00 IMPRESSION: 1. Complete opacification of left hemithorax consistent with dense consolidation. Small left effusion. 2. Fairly extensive right upper and right lower lobe infiltrate consistent with pneumonia as well. Small right effusion. IMPRESSION: 1. Small amount of ascites. 2. Thickened gallbladder wall with surrounding inflammation. Acute cholecystitis cannot be excluded. Chest X-Ray 02/22/19 06:00 IMPRESSION: Persistent multifocal bilateral airspace disease with dense opacification of the left hemithorax. Mildly improved left perihilar aeration. Mild left effusion. Assessment and Plan - Diagnosis (1) ARDS (adult respiratory distress syndrome) Is this a current diagnosis for this admission?: Yes Plan: 02/22/2019-resolved stable. Patient seen on side of bed breathing talking in full sentences. Required supplemental oxygen still but much improved. We will continue to follow (2) Acute respiratory failure with hypoxia Is this a current diagnosis for this admission?: Yes Plan: Patient was treated with supplemental oxygen via nasal cannula, or more aggressive therapy as required to maintain an oxygen saturation of the 93%. O2 sat will be monitored frequently throughout his hospital course. 02/22/2019-continues show improvement. Remains on supplemental oxygen at this time. Will start aggressive pulmonary toileting. (3) Aspiration pneumonia due to gastric secretions Qualifiers: Laterality: bilateral Lung location: unspecified part of lung Qualified Code(s): J69.0 - Pneumonitis due to inhalation of food and vomit Is this a current diagnosis for this admission?: Yes Plan: 02/22/2019- Patient remains weak secondary to a complicated medical admission. Patient's chest x-ray per my viewing shows a almost complete widening out of his left lung. This is not much improved from previous x-rays. As patient does have this history of aspiration pneumonia I will place patient back on Zosyn obtain repeat blood cultures and sputum cultures patient is on a white count increased which could be secondary to steroid use but given his severity disease I opted to treat him more aggressively. I have also added a HIV screen given patient's severity of disease. (4) Alcohol withdrawal delirium Is this a current diagnosis for this admission?: Yes Plan: 2018-stable at this time no signs of DT. Will follow (5) Pleural cavity effusion Is this a current diagnosis for this admission?: Yes Plan: 02/22/2019-stable at this time - Time Time Spent with patient: 25-34 minutes - Inpatient Certification Based on my medical assessment, after consideration of the patient's comorbidities, presenting symptoms, or acuity I expect that the services needed warrant INPATIENT care.: Yes I certify that my determination is in accordance with my understanding of Medicare's requirements for reasonable and necessary INPATIENT services [42 CFR 412.3e].: Yes Medical Necessity: Significant Comorbidiites Make Outpatient Treatment Too Risky, Need Close Monitoring Due to Risk of Patient Decompensation, Need for IV Antibiotics
[2019-02-22] MEDS: POTASSIUM CHLORIDE 10 MEQ CAPSULE.ER PO SCH ×2 (10:02→14:25)
[2019-02-22] MEDS: PIPERACILLIN SODIUM/TAZOBACTAM 3.375 GM in NORMAL SALINE 100 ML IV SCH ×3 (11:35→23:01)
[2019-02-22] MEDS ORDERED: VANCOMYCIN HCL 0 MG in DEXTROSE 5%-WATER 250 ML IV NR (12:30)
--- NOTE | 2019-02-22 12:31 | RADIOLOGY REPORT (SQ) ---
EXAM DESCRIPTION: CT CHEST WITH COMPLETED DATE/TIME: 02/22/2019 11:24 am REASON FOR STUDY: PLEURAL EFFUSION COMPARISON: None. TECHNIQUE: CT scan of the chest performed using helical scanning technique with dynamic intravenous contrast injection. Images reviewed with lung, soft tissue and bone windows. Reconstructed coronal and sagittal MPR and MIP images reviewed. All images stored on PACS. All CT scanners at this facility use dose modulation, iterative reconstruction, and/or weight based d osing when appropriate to reduce radiation dose to as low as reasonably achievable (ALARA). [facility]: Dose Right [facility]: CareDose [facility]: Dose Right [facility]: Teradose 4D [facility]: EQAL CONTRAST TYPE AND DOSE: contrast/concentration: Isovue 350.00 mg/ml; Total Contrast Delivered: 80.0 ml; Total Saline Delivered: 54.0 ml RENAL FUNCTION: None required. The patient is less than 50 years old. RADIATION DOSE: CT Rad equipment meets quality standard of care and radiation dose reduction techniq ues were employed. CTDIvol: 6.0 mGy. DLP: 243 mGy-cm. . LIMITATIONS: None. FINDINGS: LUNGS AND PLEURA: There is mildly improved aeration of the left upper and lower lobes with persistent bilateral multifocal patchy consolidation and ground-glass attenuation, left greater than right. There are bilateral pleural effusions, mild on the right and xyex-dr-yvsevvht on the left, i ncreased from prior CT. No pneumothorax. . HILAR AND MEDIASTINAL STRUCTURES: No identified masses or abnormal nodes. HEART AND VASCULAR STRUCTURES: No aneurysm. No dissection. Trace pericardial effusion. No signific ant coronary atherosclerosis. HARDWARE: None in the chest. UPPER ABDOMEN: No acute changes. THYROID AND OTHER SOFT TISSUES: No masses. No adenopathy. BONES: No significant finding. OTHER: No other significant finding. IMPRESSION: 1. Improved aeration of the left upper and lower lobes with persistent multifocal bilat eral consolidation and ground-glass attenuation suggestive of multifocal pneumonia. 2. Mild right and hpup-pz-gdjkdutb left-sided pleural effusion, increased from prior CT. TECHNICAL DOCUMENTATION: JOB ID: [id number] Quality ID # [id number]: Final reports with documentation of one or more dose reduction techniques (e.g., Au tomated exposure control, adjustment of the mA and/or kV according to patient size, use of iterative reconstruction technique) 2010 [employer]- All Rights Reserved Reading location - IP/workstation name: [email or web address]
[2019-02-22] MEDS ORDERED: AZITHROMYCIN INJ 500 MG VIAL IV SCH (13:00)
[2019-02-22] MEDS: AZITHROMYCIN 500 MG in DEXTROSE 5%-WATER 250 ML IV SCH (14:25)
[2019-02-22] MEDS: VANCOMYCIN HCL 1,250 MG in DEXTROSE 5%-WATER 250 ML IV SCH ×2 (17:01→21:09)
[2019-02-23] MEDS: ALBUTEROL SULFATE 0.083% NEB 2.5 MG/3 ML AMPUL NEB SCH ×6 (00:16→20:18)
[2019-02-23] MEDS: PIPERACILLIN SODIUM/TAZOBACTAM 3.375 GM in NORMAL SALINE 100 ML IV SCH ×3 (05:02→17:56)
[2019-02-23] MEDS: VANCOMYCIN HCL 1,250 MG in DEXTROSE 5%-WATER 250 ML IV SCH ×2 (05:37→13:47)
[2019-02-23 06:06] LABS: ABSOLUTE EOSINOPHILS # (AUTO) 0.2 10^3/uL (0.0-0.6); ABSOLUTE LYMPHOCYTES (AUTO) 1.2 10^3/uL (0.5-4.7); ABSOLUTE MONOCYTES (AUTO) 1.6 10^3/uL (0.1-1.4); ABSOLUTE NEUT (AUTO) 11.4 10^3/uL (1.7-8.2); BASOPHILS % (AUTO) 0.3 % (0-2); EOSINOPHILS % (AUTO) 1.6 % (0-6); HEMOGLOBIN 8.4 g/dL (13.5-17.0); LYMPHOCYTES % (AUTO) 8.2 % (13-45); MEAN CORPUSCULAR HEMOGLOBIN 35.1 pg (27.0-33.4); MEAN CORPUSCULAR HGB CONC 34.9 g/dL (32.0-36.0); MEAN CORPUSCULAR VOLUME 101 fl (80-97); MONOCYTES % (AUTO) 11.3 % (3-13); PLATELET COUNT 626 10^3/uL (150-450); RED BLOOD COUNT 2.38 10^6/uL (4.35-5.55); RED CELL DISTRIBUTION WIDTH 13.3 % (11.5-14.0); SEGMENTED NEUTROPHILS % (AUTO) 78.6 % (42-78); TOTAL CELLS COUNTED % (AUTO) 100 %; WHITE BLOOD COUNT 14.5 10^3/uL (4.0-10.5)
[2019-02-23 06:33] LABS: ANION GAP 7 (5-19); BLOOD UREA NITROGEN 8 mg/dL (7-20); CALCIUM 8.2 mg/dL (8.4-10.2); CARBON DIOXIDE 25 mmol/L (22-30); CHLORIDE 110 mmol/L (98-107); GLUCOSE 84 mg/dL (75-110); POTASSIUM 3.5 mmol/L (3.6-5.0)
--- NOTE | 2019-02-23 09:06 | PDOC PROGRESS REPORT ---
Subjective Progress Note for:: 02/23/19 Subjective:: 02/22/2019-weakness 02/23/2019-no complaints this a.m. Reason For Visit: PNEUMONIA,ACUTE HYPOXIC RESPIRATORY FAILURE,SIRS Physical Exam Vital Signs: Temp Pulse Resp BP Pulse Ox 98.6 F 93 18 142/85 H 99 02/23/19 08:28 02/23/19 08:28 02/23/19 08:28 02/23/19 08:28 02/23/19 08:28 Pulse Oximeter Continuous Start: 02/12/19 0 6:14 Freq: RTQ4 Status: Complete Protocol: Document 02/12/19 10:31 [facility] (Rec: 02/12/19 10:32 [facility] [email or web address]) Pulse Oximetry Assessment Equipment Usage Equipment Standby Continuous SpO2 Machine # na Intake & Output 02/22/19 02/23/19 02/24/19 06:59 06:59 06:59 Intake Total 940 1630 Balance 940 1630 Weight 76 kg 70.6 kg General appearance: PRESENT: no acute distress, well-developed, well-nourished Neck exam: ABSENT: carotid bruit, JVD, lymphadenopathy, thyromegaly Respiratory exam: PRESENT: decreased breath sounds, symmetrical, unlabored. ABSENT: rales, rhonchi, wheezes Cardiovascular exam: PRESENT: RRR. ABSENT: diastolic murmur, rubs, systolic murmur Pulses: PRESENT: normal dorsalis pedis pul Vascular exam: PRESENT: normal capillary refill GI/Abdominal exam: PRESENT: normal bowel sounds, soft. ABSENT: distended, guarding, mass, organolmegaly, rebound, tenderness Extremities exam: PRESENT: full ROM. ABSENT: calf tenderness, clubbing, pedal edema Neurological exam: PRESENT: alert, awake, oriented to person, oriented to place, oriented to time, oriented to situation, CN II-XII grossly intact. ABSENT: motor sensory deficit Psychiatric exam: PRESENT: appropriate affect, normal mood. ABSENT: homicidal ideation, suicidal ideation Skin exam: PRESENT: dry, intact, warm. ABSENT: cyanosis, rash Results Laboratory Results: 02/23/19 05:15 02/23/19 05:15 02/22/19 02/23/19 02/23/19 14:24 05:15 05:15 WBC 14.5 H RBC 2.38 L Hgb 8.4 L Hct 24.0 L MCV 101 H MCH 35.1 H MCHC 34.9 RDW 13.3 Plt Count 626 H Seg Neutrophils % 78.6 H Sodium 142.1 Potassium 3.5 L Chloride 110 H Carbon Dioxide 25 Anion Gap 7 BUN 8 Creatinine 0.59 Est GFR ( Amer) > 60 Glucose 84 Lactic Acid 0.8 Calcium 8.2 L 02/13/19 02/13/19 02/13/19 14:50 14:50 21:17 Creatine Kinase 76 < 20 L Troponin I 0.020 Impressions: KUB X-Ray 02/13/19 09:59 IMPRESSION: SATISFACTORY POSITION OF THE NASOGASTRIC TUBE. NO RADIOGRAPHIC EVIDENCE FOR ACUTE ABDOMINAL DISEASE. Abdomen Ultrasound 02/14/19 00:00 IMPRESSION: Thickened gallbladder wall. No pericholecystic edema or stones. Fatty infiltrated liver with hepatomegaly. Abdomen/Pelvis CT 02/15/19 00:00 IMPRESSION: 1. Complete opacification of left hemithorax consistent with dense consolidation. Small left effusion. 2. Fairly extensive right upper and right lower lobe infiltrate consistent with pneumonia as well. Small right effusion. IMPRESSION: 1. Small amount of ascites. 2. Thickened gallbladder wall with surrounding inflammation. Acute cholecystitis cannot be excluded. Chest CT 02/22/19 00:00 IMPRESSION: 1. Improved aeration of the left upper and lower lobes with persistent multifocal bilateral consolidation and ground-glass attenuation suggestive of multifocal pneumonia. 2. Mild right and oxfy-jo-adoqwsij left-sided pleural effusion, increased from prior CT. Chest X-Ray 02/22/19 06:00 IMPRESSION: Persistent multifocal bilateral airspace disease with dense opacification of the left hemithorax. Mildly improved left perihilar aeration. Mild left effusion. Assessment and Plan - Diagnosis (1) ARDS (adult respiratory distress syndrome) Is this a current diagnosis for this admission?: Yes Plan: 02/22/2019-resolved stable. Patient seen on side of bed breathing talking in full sentences. Required supplemental oxygen still but much improved. We will continue to follow 02/23/2019-stable continue to follow (2) Acute respiratory failure with hypoxia Is this a current diagnosis for this admission?: Yes Plan: Patient was treated with supplemental oxygen via nasal cannula, or more aggressive therapy as required to maintain an oxygen saturation of the 93%. O2 sat will be monitored frequently throughout his hospital course. 02/22/2019-continues show improvement. Remains on supplemental oxygen at this time. Will start aggressive pulmonary toileting. 02/23/2019-remains on supplemental oxygen. Continue aggressive coronary toileting. (3) Aspiration pneumonia due to gastric secretions Qualifiers: Laterality: bilateral Lung location: unspecified part of lung Qualified Code(s): J69.0 - Pneumonitis due to inhalation of food and vomit Is this a current diagnosis for this admission?: Yes Plan: 02/22/2019- Patient remains weak secondary to a complicated medical admission. Patient's chest x-ray per my viewing shows a almost complete widening out of his left lung. This is not much improved from previous x-rays. As patient does have this history of aspiration pneumonia I will place patient back on Zosyn obtain repeat blood cultures and sputum cultures patient is on a white count increased which could be secondary to steroid use but given his severity disease I opted to treat him more aggressively. I have also added a HIV screen given patient's severity of disease. 02/23/2019-chest CT yesterday showed multifocal focal pneumonia. I have reinstituted patient on IV antibiotics vancomycin, Zosyn and azithromycin. HIV screen was negative. Patient will undergo thoracentesis today. Once thoracentesis complete we will send off fluid for cytology and flow cytometry. Dr. Jace franco has been consulted to review patient for possible lymphoma (4) Alcohol withdrawal delirium Is this a current diagnosis for this admission?: Yes Plan: 2018-stable at this time no signs of DT. Will follow 02/23/2019-stable (5) Pleural cavity effusion Is this a current diagnosis for this admission?: Yes Plan: 02/22/2019-stable at this time 02/23/2019 stable (6) Lymphoma Is this a current diagnosis for this admission?: Yes Plan: 02/23/2019-patient will be seen by Dr. Jace franco for evaluation. Thoracic fluid will be sent off for flow cytometry. - Time Time Spent with patient: 15-24 minutes - Inpatient Certification Based on my medical assessment, after consideration of the patient's comorbidities, presenting symptoms, or acuity I expect that the services needed warrant INPATIENT care.: Yes I certify that my determination is in accordance with my understanding of Medicare's requirements for reasonable and necessary INPATIENT services [42 CFR 412.3e].: Yes Medical Necessity: Significant Comorbidiites Make Outpatient Treatment Too Risky, Need Close Monitoring Due to Risk of Patient Decompensation, Need for Pain Control, Need for IV Antibiotics
[2019-02-23] MEDS: THIAMINE HCL 100 MG TABLET PO SCH (09:36)
[2019-02-23] MEDS: FOLIC ACID 1 MG TABLET PO SCH (09:36)
[2019-02-23] MEDS: PREDNISONE 20 MG TABLET PO SCH (09:36)
[2019-02-23] MEDS: QUETIAPINE FUMARATE 100 MG TABLET PO SCH ×2 (09:36→21:14)
[2019-02-23] MEDS: MULTIVITAMIN TABLET PO SCH (09:36)
[2019-02-23] MEDS: SILVER SULFADIAZINE 1% CREAM 400 GM TP SCH ×2 (09:40→17:33)
[2019-02-23 09:58] LABS: INTERNATIONAL RATION (INR) 1.09; PROTHROMBIN TIME 14.1 SEC (11.4-15.4)
[2019-02-23] MEDS: NICOTINE 21 MG/24 HR PATCH.TD24 TD PRN (11:56)
--- NOTE | 2019-02-23 12:08 | RADIOLOGY REPORT (SQ) ---
EXAM DESCRIPTION: CHEST SINGLE VIEW COMPLETED DATE/TIME: 02/23/2019 11:31 am REASON FOR STUDY: S/P left thoracentesis COMPARISON: 02/22/2019 NUMBER OF VIEWS: One view. TECHNIQUE: Single frontal radiographic image of the chest acquired. LIMITATIONS: None. FINDINGS: LUNGS AND PLEURA: Dense consolidation in the left lung. No pneumothorax. Less severe con solidation in the right lung. MEDIASTINUM AND HEART: Stable heart size and mediastinal structures. BONY STRUCTURES: No acute findings. HARDWARE: None. OTHER: No other significant finding. IMPRESSION: No pneumothorax status post left thoracentesis. TECHNICAL DOCUMENTATION: JOB ID: [id number] Reading location - IP/workstation name: [email or web address]
--- NOTE | 2019-02-23 12:34 | RADIOLOGY REPORT (SQ) ---
EXAM DESCRIPTION: U/S THORACENTESIS WITH IMAGING COMPLETED DATE/TIME: 02/23/2019 12:18 pm REASON FOR STUDY: Pleural effusion COMPARISON: None. LIMITATIONS: None. PROCEDURE: Procedure, risks, benefit, and alternative explained to patient who then gave written con sent. The posterior left chest wall was marked using ultrasound guidance. A time-out was called for correct marking verification. Chest prepped and draped using sterile technique. Local anesthesia ac hieved using 3.5 ml of 1% lidocaine injection. A 6fr Safe-T- Centesis set was introduced into the le ft pleural space. Fluid was aspirated. The catheter was removed and the entry site was covered with sterile bandage. No immediate complications noted. Images acquired during the procedure were stored on PACS. FINDINGS: ENTRY SITE: posterior left chest. FLUID VOLUME: 450 cc FLUID ANALYSIS: Cloudy straw OTHER: Fluid sent to the lab for testing. IMPRESSION: SUCCESSFUL THORACENTESIS USING ULTRASOUND GUIDANCE. COMMENT: Patient medication list reviewed: Yes- Quality ID# [id number]:Eligible professional attests to doc umenting in the medical record they obtained, updated, or reviewed the patient's current medications. TECHNICAL DOCUMENTATION: JOB ID: [id number] 1975 [employer]- All Rights Reserved Reading location - IP/workstation name: [email or web address]
[2019-02-23 13:06] LABS: FLUID APPEARANCE HAZY; FLUID COLOR YELLOW; FLUID SOURCE LUNG; FLUID TYPE PLEURAL; FLUID VISCOSITY LIQUID
[2019-02-23 13:49] LABS: VANCOMYCIN,TROUGH 12.3 ug/mL (5.0-20.0)
--- NOTE | 2019-02-23 13:54 | RADIOLOGY REPORT (SQ) ---
EXAM DESCRIPTION: CHEST SINGLE VIEW COMPLETED DATE/TIME: 02/23/2019 1:40 pm REASON FOR STUDY: 2 hrs post left thoracentesis COMPARISON: Same day radiograph EXAM PARAMETERS: NUMBER OF VIEWS: One view. TECHNIQUE: Single frontal radiographic view of the chest acquired. RADIATION DOSE: NA LIMITATIONS: None. FINDINGS: LUNGS AND PLEURA: Stable multifocal consolidation, left greater than right. Small residua l left-sided effusion. No pneumothorax. MEDIASTINUM AND HILAR STRUCTURES: Stable. HEART AND VASCULAR STRUCTURES: Stable. BONES: No acute findings. HARDWARE: None in the chest. OTHER: No other significant finding. IMPRESSION: No pneumothorax post left thoracentesis. TECHNICAL DOCUMENTATION: JOB ID: [id number] [email or web address]- All Rights Reserved Reading location - IP/workstation name: [email or web address]
[2019-02-23] MEDS: AZITHROMYCIN 500 MG in DEXTROSE 5%-WATER 250 ML IV SCH (16:21)
[2019-02-23] MEDS: VANCOMYCIN HCL 1,500 MG in DEXTROSE 5%-WATER 250 ML IV SCH (21:14)
[2019-02-24] MEDS: ALBUTEROL SULFATE 0.083% NEB 2.5 MG/3 ML AMPUL NEB SCH ×7 (00:01→23:36)
[2019-02-24] MEDS: PIPERACILLIN SODIUM/TAZOBACTAM 3.375 GM in NORMAL SALINE 100 ML IV SCH ×5 (01:57→23:28)
[2019-02-24 05:54] LABS: ABSOLUTE BASOPHILS # (AUTO) 0.1 10^3/uL (0.0-0.2); ABSOLUTE EOSINOPHILS # (AUTO) 0.3 10^3/uL (0.0-0.6); ABSOLUTE LYMPHOCYTES (AUTO) 1.2 10^3/uL (0.5-4.7); ABSOLUTE MONOCYTES (AUTO) 1.5 10^3/uL (0.1-1.4); ABSOLUTE NEUT (AUTO) 9.3 10^3/uL (1.7-8.2); BASOPHILS % (AUTO) 0.9 % (0-2); EOSINOPHILS % (AUTO) 2.1 % (0-6); HEMATOCRIT 25.6 % (37.9-51.0); HEMOGLOBIN 8.9 g/dL (13.5-17.0); MEAN CORPUSCULAR HEMOGLOBIN 35.3 pg (27.0-33.4); MEAN CORPUSCULAR HGB CONC 34.7 g/dL (32.0-36.0); MEAN CORPUSCULAR VOLUME 102 fl (80-97); MONOCYTES % (AUTO) 11.9 % (3-13); PLATELET COUNT 684 10^3/uL (150-450); RED BLOOD COUNT 2.52 10^6/uL (4.35-5.55); RED CELL DISTRIBUTION WIDTH 13.1 % (11.5-14.0); SEGMENTED NEUTROPHILS % (AUTO) 75.1 % (42-78); TOTAL CELLS COUNTED % (AUTO) 100 %; WHITE BLOOD COUNT 12.3 10^3/uL (4.0-10.5)
[2019-02-24] MEDS: VANCOMYCIN HCL 1,500 MG in DEXTROSE 5%-WATER 250 ML IV SCH ×3 (06:23→22:27)
[2019-02-24 06:47] LABS: ANION GAP 5 (5-19); BLOOD UREA NITROGEN 7 mg/dL (7-20); CALCIUM 8.5 mg/dL (8.4-10.2); CARBON DIOXIDE 28 mmol/L (22-30); CHLORIDE 107 mmol/L (98-107); GLUCOSE 80 mg/dL (75-110); POTASSIUM 3.3 mmol/L (3.6-5.0)
[2019-02-24] MEDS ORDERED: POTASSIUM CHLORIDE 10 MEQ CAPSULE.ER PO ONE (09:43)
--- NOTE | 2019-02-24 09:47 | PDOC PROGRESS REPORT ---
Subjective Progress Note for:: 02/24/19 Subjective:: 02/22/2019-weakness 02/23/2019-no complaints this a.m. 02/24/2019-no complaints Reason For Visit: PNEUMONIA,ACUTE HYPOXIC RESPIRATORY FAILURE,SIRS Physical Exam Vital Signs: Temp Pulse Resp BP Pulse Ox 99.1 F 98 16 141/83 H 92 02/24/19 07:20 02/24/19 07:50 02/24/19 07:50 02/24/19 07:20 02/24/19 07:50 Pulse Oximeter Continuous Start: 02/12/19 06:14 Freq: RTQ4 Status: Complete Protocol: Document 02/12/19 10:31 [facility] (Rec: 02/12/19 10:32 [facility] [id number]) Pulse Oximetry Assessment Equipment Usage Equipment Standby Continuous SpO2 Machine # na Intake & Output 02/23/19 02/24/19 02/25/19 06:59 06:59 06:59 Intake Total 1630 3530 250 Balance 1630 3530 250 Weight 70.6 kg 68.9 kg General appearance: PRESENT: no acute distress, well-developed, well-nourished Neck exam: ABSENT: carotid bruit, JVD, lymphadenopathy, thyromegaly Respiratory exam: PRESENT: clear to auscultation raul, decreased breath sounds, rhonchi, symmetrical, unlabored Cardiovascular exam: PRESENT: RRR. ABSENT: diastolic murmur, rubs, systolic murmur Pulses: PRESENT: normal dorsalis pedis pul Vascular exam: PRESENT: normal capillary refill GI/Abdominal exam: PRESENT: normal bowel sounds, soft. ABSENT: distended, guarding, mass, organolmegaly, rebound, tenderness Extremities exam: PRESENT: full ROM. ABSENT: calf tenderness, clubbing, pedal edema Neurological exam: PRESENT: alert, awake, oriented to person, oriented to place, oriented to time, oriented to situation, CN II-XII grossly intact. ABSENT: motor sensory deficit Psychiatric exam: PRESENT: appropriate affect, normal mood. ABSENT: homicidal ideation, suicidal ideation Skin exam: PRESENT: dry, intact, warm. ABSENT: cyanosis, rash Results Laboratory Results: 02/24/19 05:02 02/24/19 05:02 02/23/19 02/24/19 02/24/19 11:15 05:02 05:02 WBC 12.3 H RBC 2.52 L Hgb 8.9 L Hct 25.6 L MCV 102 H MCH 35.3 H MCHC 34.7 RDW 13.1 Plt Count 684 H Seg Neutrophils % 75.1 Sodium 140.4 Potassium 3.3 L Chloride 107 Carbon Dioxide 28 Anion Gap 5 BUN 7 Creatinine 0.62 Est GFR ( Amer) > 60 Glucose 80 Calcium 8.5 Fluid Type PLEURAL Fluid Source LUNG Fluid Color YELLOW Fluid Appearance HAZY Fluid Viscosity LIQUID Fluid WBC 913 Fluid RBC 1940 02/13/19 02/13/19 02/13/19 14:50 14:50 21:17 Creatine Kinase 76 < 20 L Troponin I 0.020 Impressions: KUB X-Ray 02/13/19 09:59 IMPRESSION: SATISFACTORY POSITION OF THE NASOGASTRIC TUBE. NO RADIOGRAPHIC EVIDENCE FOR ACUTE ABDOMINAL DISEASE. Abdomen Ultrasound 02/14/19 00:00 IMPRESSION: Thickened gallbladder wall. No pericholecystic edema or stones. Fatty infiltrated liver with hepatomegaly. Abdomen/Pelvis CT 02/15/19 00:00 IMPRESSION: 1. Complete opacification of left hemithorax consistent with dense consolidation. Small left effusion. 2. Fairly extensive right upper and right lower lobe infiltrate consistent with pneumonia as well. Small right effusion. IMPRESSION: 1. Small amount of ascites. 2. Thickened gallbladder wall with surrounding inflammation. Acute cholecystitis cannot be excluded. Chest CT 02/22/19 00:00 IMPRESSION: 1. Improved aeration of the left upper and lower lobes with persistent multifocal bilateral consolidation and ground-glass attenuation suggestive of multifocal pneumonia. 2. Mild right and [id number] left-sided pleural effusion, increased from prior CT. Thoracentesis Ultrasound 02/23/19 00:00 IMPRESSION: SUCCESSFUL THORACENTESIS USING ULTRASOUND GUIDANCE. Chest X-Ray 02/23/19 13:25 IMPRESSION: No pneumothorax post left thoracentesis. Assessment and Plan - Diagnosis (1) ARDS (adult respiratory distress syndrome) Is this a current diagnosis for this admission?: Yes Plan: 02/22/2019-resolved stable. Patient seen on side of bed breathing talking in full sentences. Required supplemental oxygen still but much improved. We will continue to follow 02/23/2019-stable continue to follow. 02/24/2019-stable (2) Acute respiratory failure with hypoxia Is this a current diagnosis for this admission?: Yes Plan: Patient was treated with supplemental oxygen via nasal cannula, or more aggressive therapy as required to maintain an oxygen saturation of the 93%. O2 sat will be monitored frequently throughout his hospital course. 02/22/2019-continues show improvement. Remains on supplemental oxygen at this time. Will start aggressive pulmonary toileting. 02/23/2019-remains on supplemental oxygen. Continue aggressive pulmonary toileting. 02/24/2019-stable continues on supplemental oxygen. Continue aggressive pulmonary toileting (3) Aspiration pneumonia due to gastric secretions Qualifiers: Laterality: bilateral Lung location: unspecified part of lung Qualified Code(s): J69.0 - Pneumonitis due to inhalation of food and vomit Is this a current diagnosis for this admission?: Yes Plan: 02/22/2019- Patient remains weak secondary to a complicated medical admission. Patient's chest x-ray per my viewing shows a almost complete widening out of his left lung. This is not much improved from previous x-rays. As patient does have this history of aspiration pneumonia I will place patient back on Zosyn obtain repeat blood cultures and sputum cultures patient is on a white count increased which could be secondary to steroid use but given his severity disease I opted to treat him more aggressively. I have also added a HIV screen given patient's severity of disease. 02/23/2019-chest CT yesterday showed multifocal focal pneumonia. I have reinstituted patient on IV antibiotics vancomycin, Zosyn and azithromycin. HIV screen was negative. Patient will undergo thoracentesis today. Once thoracentesis complete we will send off fluid for cytology and flow cytometry. Dr. Jace franco has been consulted to review patient for possible lymphoma 02/24/2019-patient continues on vancomycin, Zosyn and azithromycin. Thoracentesis yesterday with 450 mL's of fluid removed and sent for cytology and flow cytometry. Awaiting recommendations from Dr. Jace franco. (4) Alcohol withdrawal delirium Is this a current diagnosis for this admission?: Yes Plan: 2018-stable at this time no signs of DT. Will follow 02/23/2019-stable 02/24/2019-stable (5) Pleural cavity effusion Is this a current diagnosis for this admission?: Yes Plan: 02/22/2019-stable at this time 02/23/2019 stable 02/24/2019-stable (6) Lymphoma Is this a current diagnosis for this admission?: Yes Plan: 02/23/2019-patient will be seen by Dr. Jace franco for evaluation. Thoracic fluid will be sent off for flow cytometry. 02/24/2019-awaiting oncology recommendations and flow cytometry. - Time Time Spent with patient: 15-24 minutes - Inpatient Certification Based on my medical assessment, after consideration of the patient's comorbidities, presenting symptoms, or acuity I expect that the services needed warrant INPATIENT care.: Yes I certify that my determination is in accordance with my understanding of Medicare's requirements for reasonable and necessary INPATIENT services [42 CFR 412.3e].: Yes Medical Necessity: Significant Comorbidiites Make Outpatient Treatment Too Risky, Need Close Monitoring Due to Risk of Patient Decompensation, Need for IV Antibiotics
[2019-02-24] MEDS: THIAMINE HCL 100 MG TABLET PO SCH (11:10)
[2019-02-24] MEDS: MULTIVITAMIN TABLET PO SCH (11:10)
[2019-02-24] MEDS: FOLIC ACID 1 MG TABLET PO SCH (11:10)
[2019-02-24] MEDS: PREDNISONE 20 MG TABLET PO SCH (11:11)
[2019-02-24] MEDS: QUETIAPINE FUMARATE 100 MG TABLET PO SCH ×2 (11:12→22:27)
[2019-02-24] MEDS: SILVER SULFADIAZINE 1% CREAM 400 GM TP SCH ×2 (11:27→17:24)
[2019-02-24] MEDS: AZITHROMYCIN 500 MG in DEXTROSE 5%-WATER 250 ML IV SCH (15:51)
--- NOTE | 2019-02-24 19:43 | PSYCHOLOGICAL NOTE ---
Psych Note - Psych Note Date seen by psych provider: 02/24/19 Time seen by psych provider: 18:15 Psych Note: Reason for consult: Depression Behavioral health was consulted to address a possible diagnosis of lymphoma and a history of depression. Patient expressed frustration and anger about being hospitalized for an extended period of time. Patient expressed some thoughts and feelings similar to claustrophobia. Patient expressed frustration and anger with limited mobility, not having a diagnosis, possible unemployment, and how to pay for this hospital stay. Patient stated Brittany got nothing but complaints. Patient expressed a desire to get out of here repeatedly. Clinician used Rogerian techniques to provide patient with unconditional positive regard, empathy, and genuineness. Patient seemingly was processing the situation internally. Patient would express legitimate concerns, however would expressed frustration and anger with being in at stuck point. Patient stated I dont like this talking referencing expressing thoughts and emotions. Patient declined mental health resources. Patient is alert and oriented to person, place, time and circumstance. Mood is irritable with congruent affect as evidenced by limited smiling, laughing and engagement with clinician. Patient denies suicidal and homicidal ideation. Delusions are absent and behavior is congruent with an intact reality based presentation (i.e. organized and linear thought processes). There is no observed behavior that suggests patient is responding to internal stimuli. Eye contact is fair. Conversational speech is within normal rate, tone, and prosody. Intel lectual ability appears to be within average range. Attention and concentration are good. Insight, judgment, and impulse control are good. DSM Diagnosis: Per report, Depression Medication recommendations per [facility] contracted psychiatrist Dr. Mani NGUYEN is as follows: Patient declined Impression/Plan: Patient is cleared from acute psychiatric services. Patient does not meet IVC criteria per [place] GS 122C. At this time patient is demonstrating insight and judgment into their current situation and is able to thoughtfully and purposefully be a collaborator in their plan of care. Patient is experiences emotional reactions that could be typical of an individual facing several major life stressors (new medical diagnosis, financial concerns, and employment concerns) without the answers needed to effect positive change in his current circumstances. Patient verbalized he would reach out for mental health services if and when needed. Patient denies auditory and visual hallucinations. Patient denies current suicidal and homicidal ideations. Dr. Hines was consulted on the care and management of this patient; attending physician is in agreement with recommendations and disposition.
[2019-02-24 22:23] LABS: VANCOMYCIN,TROUGH 22.3 ug/mL (5.0-20.0)
[2019-02-25] MEDS: ALBUTEROL SULFATE 0.083% NEB 2.5 MG/3 ML AMPUL NEB SCH ×6 (04:11→23:58)
[2019-02-25] MEDS: PIPERACILLIN SODIUM/TAZOBACTAM 3.375 GM in NORMAL SALINE 100 ML IV SCH ×2 (05:53→12:24)
[2019-02-25] MEDS: MULTIVITAMIN TABLET PO SCH (09:52)
[2019-02-25] MEDS: QUETIAPINE FUMARATE 100 MG TABLET PO SCH ×2 (09:52→21:15)
[2019-02-25] MEDS: FOLIC ACID 1 MG TABLET PO SCH (09:52)
[2019-02-25] MEDS: THIAMINE HCL 100 MG TABLET PO SCH (09:52)
[2019-02-25] MEDS: PREDNISONE 20 MG TABLET PO SCH (09:52)
[2019-02-25] MEDS: SILVER SULFADIAZINE 1% CREAM 400 GM TP SCH ×2 (09:53→17:26)
--- NOTE | 2019-02-25 10:07 | PDOC PROGRESS REPORT ---
Subjective Progress Note for:: 02/25/19 Subjective:: 02/22/2019-weakness 02/23/2019-no complaints this a.m. 02/24/2019-no complaints 02/25/2019-no complaints at this time. Reason For Visit: PNEUMONIA,ACUTE HYPOXIC RESPIRATORY FAILURE,SIRS Physical Exam Vital Signs: Temp Pulse Resp BP Pulse Ox 99.2 F 92 16 133/77 H 94 02/25/19 07:52 02/25/19 08:15 02/25/19 08:15 02/25/19 07:52 02/25/19 08:15 Pulse Oximeter Continuous Start: 02/12/19 06:14 Freq: RTQ4 Status: Complete Protocol: Document 02/12/19 10:31 [facility] (Rec: 02/12/19 10:32 [facility] [id number]) Pulse Oximetry Assessment Equipment Usage Equipment Standby Continuous SpO2 Machine # na Intake & Output 02/24/19 02/25/19 02/26/19 06:59 06:59 05:59 Intake Total 3530 1792 Balance 3530 1792 Weight 68.9 kg 66.1 kg General appearance: PRESENT: no acute distress, well-developed, well-nourished Head exam: PRESENT: atraumatic, normocephalic Eye exam: PRESENT: conjunctiva pink, EOMI, PERRLA. ABSENT: scleral icterus Ear exam: PRESENT: normal external ear exam Mouth exam: PRESENT: moist, tongue midline Neck exam: ABSENT: carotid bruit, JVD, lymphadenopathy, thyromegaly Respiratory exam: PRESENT: clear to auscultation raul, decreased breath sounds, symmetrical, unlabored. ABSENT: rales, rhonchi, wheezes Cardiovascular exam: PRESENT: RRR. ABSENT: diastolic murmur, rubs, systolic murmur Pulses: PRESENT: normal dorsalis pedis pul Vascular exam: PRESENT: normal capillary refill GI/Abdominal exam: PRESENT: normal bowel sounds, soft. ABSENT: distended, guarding, mass, organolmegaly, rebound, tenderness Rectal exam: PRESENT: deferred Extremities exam: PRESENT: full ROM. ABSENT: calf tenderness, clubbing, pedal edema Neurological exam: PRESENT: alert, awake, oriented to person, oriented to place, oriented to time, oriented to situation, CN II-XII grossly intact. ABSENT: motor sensory deficit Psychiatric exam: PRESENT: appropriate affect, normal mood. ABSENT: homicidal ideation, suicidal ideation Skin exam: PRESENT: dry, intact, warm. ABSENT: cyanosis, rash Results Laboratory Results: 02/24/19 05:02 02/24/19 05:02 02/23/19 11:15 Fluid Total Protein 1.5 02/22/19 12:00 Sputum Gram Stain - Final 02/22/19 12:00 Sputum Sputum Culture - Final Staphylococcus Aureus Normal [place] 02/13/19 02/13/19 02/13/19 14:50 14:50 21:17 Creatine Kinase 76 < 20 L Troponin I 0.020 Impressions: KUB X-Ray 02/13/19 09:59 IMPRESSION: SATISFACTORY POSITION OF THE NASOGASTRIC TUBE. NO RADIOGRAPHIC EVIDENCE FOR ACUTE ABDOMINAL DISEASE. Abdomen Ultrasound 02/14/19 00:00 IMPRESSION: Thickened gallbladder wall. No pericholecystic edema or stones. Fatty infiltrated liver with hepatomegaly. Abdomen/Pelvis CT 02/15/19 00:00 IMPRESSION: 1. Complete opacification of left hemithorax consistent with dense consolidation. Small left effusion. 2. Fairly extensive right upper and right lower lobe infiltrate consistent with pneumonia as well. Small right effusion. IMPRESSION: 1. Small amount of ascites. 2. Thickened gallbladder wall with surrounding inflammation. Acute cholecystitis cannot be excluded. Chest CT 02/22/19 00:00 IMPRESSION: 1. Improved aeration of the left upper and lower lobes with persistent multifocal bilateral consolidation and ground-glass attenuation suggestive of multifocal pneumonia. 2. Mild right and [id number] left-sided pleural effusion, increased from prior CT. Thoracentesis Ultrasound 02/23/19 00:00 IMPRESSION: SUCCESSFUL THORACENTESIS USING ULTRASOUND GUIDANCE. Chest X-Ray 02/23/19 13:25 IMPRESSION: No pneumothorax post left thoracentesis. Assessment and Plan - Diagnosis (1) ARDS (adult respiratory distress syndrome) Is this a current diagnosis for this admission?: Yes Plan: 02/22/2019-resolved stable. Patient seen on side of bed breathing talking in full sentences. Required supplemental oxygen still but much improved. We will continue to follow 02/23/2019-stable continue to follow. 02/24/2019-stable 02/25/2019-stable continue to follow (2) Acute respiratory failure with hypoxia Is this a current diagnosis for this admission?: Yes Plan: Patient was treated with supplemental oxygen via nasal cannula, or more aggressive therapy as required to maintain an oxygen saturation of the 93%. O2 sat will be monitored frequently throughout his hospital course. 02/22/2019-continues show improvement. Remains on supplemental oxygen at this time. Will start aggressive pulmonary toileting. 02/23/2019-remains on supplemental oxygen. Continue aggressive pulmonary toileting. 02/24/2019-stable continues on supplemental oxygen. Continue aggressive pulmonary toileting 02/25/2019-resolved (3) Aspiration pneumonia due to gastric secretions Qualifiers: Laterality: bilateral Lung location: unspecified part of lung Qualified C ode(s): J69.0 - Pneumonitis due to inhalation of food and vomit Is this a current diagnosis for this admission?: Yes Plan: 02/22/2019- Patient remains weak secondary to a complicated medical admission. Patient's chest x-ray per my viewing shows a almost complete widening out of his left lung. This is not much improved from previous x-rays. As patient does have this history of aspiration pneumonia I will place patient back on Zosyn obtain repeat blood cultures and sputum cultures patient is on a white count increased which could be secondary to steroid use but given his severity disease I opted to treat him more aggressively. I have also added a HIV screen given patient's severity of disease. 02/23/2019-chest CT yesterday showed multifocal focal pneumonia. I have reinstituted patient on IV antibiotics vancomycin, Zosyn and azithromycin. HIV screen was negative. Patient will undergo thoracentesis today. Once th oracentesis complete we will send off fluid for cytology and flow cytometry. Dr. Jace franco has been consulted to review patient for possible lymphoma 02/24/2019-patient continues on vancomycin, Zosyn and azithromycin. Thoracentesis yesterday with 450 mL's of fluid removed and sent for cytology and flow cytometry. Awaiting recommendations from Dr. Jace franco. 02/25/2019-patient continues on vancomycin Zosyn and azithromycin. I will repeat chest x-ray in a.m. I am waiting for flow cytometry to return. And recommendations per oncology as needed. (4) Alcohol withdrawal delirium Is this a current diagnosis for this admission?: Yes Plan: 2018-stable at this time no signs of DT. Will follow 02/23/2019-stable 02/24/2019-stable 02/25/2019-stable (5) Pleural cavity effusion Is this a current diagnosis for this admission?: Yes Plan: 02/22/2019-stable at this time 02/23/2019 stable 02/24/2019-stable 02/25/2019-stable (6) Lymphoma Is this a current diagnosis for this admission?: Yes Plan: 02/23/2019-patient will be seen by Dr. Jace franco for evaluation. Thoracic fluid will be sent off for flow cytometry. 02/24/2019-awaiting oncology recommendations and flow cytometry. 02/25/2019-awaiting flow cytometry. Will await regulation per oncology after return. - Time Time Spent with patient: 15-24 minutes - Inpatient Certification Based on my medical assessment, after consideration of the patient's comorbidities, presenting symptoms, or acuity I expect that the services needed warrant INPATIENT care.: Yes I certify that my determination is in accordance with my understanding of Medicare's requirements for reasonable and necessary INPATIENT services [42 CFR 412.3e].: Yes Medical Necessity: Need for IV Antibiotics
[2019-02-25] MEDS ORDERED: VANCOMYCIN HCL 1,000 MG in DEXTROSE 5%-WATER 250 ML IV SCH (14:00)
--- NOTE | 2019-02-25 14:23 | PDOC CONSULTATION ---
Consultation Consult Date: 02/25/19 Attending physician:: SHANNON QUINTANA Provider Consulted: YASIR MATA Consult reason:: Exudative pleural effusion, concerning for lymphoma History of Present Illness Admission Date/PCP: 02/12/19 04:53 Patient complains of: Shortness of breath, weakness History of Present Illness: EUGENOI LICEA is a 33 year old male who presented with acute onset shortness of breath and weakness, for about 4 days prior to admission he was getting cough and congestion and ultimately was going to be going to the doctor he tells me, but he ended up unresponsive, and was intubated and sedated. He was intubated for period of time on CT imaging initially the left lung was completely kyree out with opacifications and the concern was for an aggressive pneumonia. He had bronchoscopy, he also had pleural effusion noted on CT so he had 2 thoracenteses. Both of these were negative for malignancy, there were no cells concerning for lymphoma. I have asked for flow cytometry to be sent and this is pending. 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 Past Medical History Cardiac Medical History: Denies: Coronary Artery Disease, Hypertension Pulmonary Medical History: Reports: Asthma Denies: Pneumonia EENT Medical History: Denies: Cataracts, Ears - Hearing aids, Nose - Allergic rhinitis Neurological Medical History: Denies: Hemorrhagic CVA, Ischemic CVA, Seizures Endocrine Medical History: Denies: Diabetes Mellitus Type 1, Diabetes Mellitus Type 2, Hyperthyroidism, Hypothyroidism Renal/ Medical History: Denies: Chronic Kidney Disease, Nephrolithiasis Malignancy Medical History: Reports: None GI Medical History: Denies: Cirrhosis, Hepatitis Musculoskeltal Medical History: Denies: Arthritis, Gout Skin Medical History: Denies: Eczema, Psoriasis Psychiatric Medical History: Reports: Tobacco Dependency Denies: Alcohol Dependency, Depression, Substance Abuse Traumatic Medical History: Reports: None Hematology: Denies: Anemia, Bleeding Tendencies Infectious Medical History: Reports: None Past Surgical History Past Surgical History: Reports: None Social History Lives with: Parents - Mother Smoking Status: Current Every Day Smoker Electronic Cigarette use?: No Number of Years Smokin Frequency of Alcohol Use: Heavy - 6-8 beers daily Hx Recreational Drug Use: No - Has history of heroin overdose per [facility] records Drugs: None Hx Prescription Drug Abuse: No - Advance Directive Resuscitation Status: Full Code Family History Family History: CAD, DM, Hypertension, Malignancy Parental Family History Reviewed: Yes Children Family History Reviewed: Yes Sibling(s) Family History Reviewed.: Yes Medication/Allergy Home Medications: No Home Medications 02/12/19 Allergies/Adverse Reactions: No Known Allergies Allergy (Verified 07/26/16 13:12) Review of Systems Constitutional: ABSENT: chills, fever(s), headache(s), weight gain, weight loss Eyes: ABSENT: visual disturbances Ears: ABSENT: hearing changes Cardiovascular: ABSENT: chest pain, dyspnea on exertion, edema, orthropnea, palpitations Respiratory: ABSENT: cough, hemoptysis Gastrointestinal: ABSENT: abdominal pain, constipation, diarrhea, hematemesis, hematochezia, nausea, vomiting Genitourinary: ABSENT: dysuria, hematuria Musculoskeletal: ABSENT: joint swelling Integumentary: ABSENT: rash, wounds Neurological: ABSENT: abnormal gait, abnormal speech, confusion, dizziness, focal weakness, syncope Psychiatric: ABSENT: anxiety, depression, homidical ideation, suicidal ideation Endocrine: ABSENT: cold intolerance, heat intolerance, polydipsia, polyuria Hematologic/Lymphatic: ABSENT: easy bleeding, easy bruising Physical Exam Vital Signs: Temp Pulse Resp BP Pulse Ox 98.5 F 115 H 16 139/86 H 91 L 02/25/19 11:46 02/25/19 14:00 02/25/19 12:30 02/25/19 11:46 02/25/19 12:30 Pulse Oximeter Continuous Start: 02/12/19 06:14 Freq: RTQ4 Status: Complete Protocol: Document 02/12/19 10:31 [facility] (Rec: 02/12/19 10:32 [facility] [id number]) Pulse Oximetry Assessment Equipment Usage Equipment Standby Continuous SpO2 Machine # na Intake & Output 02/24/19 02/25/19 02/26/19 06:59 06:59 05:59 Intake Total 3530 1792 100 Balance 3530 1792 100 Weight 68.9 kg 66.1 kg General appearance: PRESENT: no acute distress, well-developed, well-nourished Head exam: PRESENT: atraumatic, normocephalic Eye exam: PRESENT: conjunctiva pink, EOMI, PERRLA. ABSENT: scleral icterus Ear exam: PRESENT: normal external ear exam Mouth exam: PRESENT: moist, tongue midline Neck exam: ABSENT: carotid bruit, JVD, lymphadenopathy, thyromegaly Respiratory exam: PRESENT: clear to auscultation raul. ABSENT: rales, rhonchi, wheezes Cardiovascular exam: PRESENT: RRR. ABSENT: diastolic murmur, rubs, systolic murmur Pulses: PRESENT: normal dorsalis pedis pul Vascular exam: PRESENT: normal capillary refill GI/Abdominal exam: PRESENT: normal bowel sounds, soft. ABSENT: distended, guarding, mass, organolmegaly, rebound, tenderness Rectal exam: PRESENT: deferred Extremities exam: PRESENT: full ROM. ABSENT: calf tenderness, clubbing, pedal edema Neurological exam: PRESENT: alert, awake, oriented to person, oriented to place, oriented to time, oriented to situation, CN II-XII grossly intact. ABSENT: motor sensory deficit Psychiatric exam: PRESENT: appropriate affect, normal mood. ABSENT: homicidal ideation, suicidal ideation Skin exam: PRESENT: dry, intact, warm. ABSENT: cyanosis, rash Results Laboratory Results: 02/24/19 05:02 02/24/19 05:02 02/23/19 11:15 Fluid Total Protein 1.5 02/14/19 12:26 Tracheal Aspirate Legionella Culture - Final 02/14/19 12:26 Tracheal Aspirate Legionella Culture - Final 02/22/19 12:00 Sputum Gram Stain - Final 02/22/19 12:00 Sputum Sputum Culture - Final Staphylococcus Aureus Normal [place] 02/13/19 02/13/19 02/13/19 14:50 14:50 21:17 Creatine Kinase 76 < 20 L Troponin I 0.020 Impressions: KUB X-Ray 02/13/19 09:59 IMPRESSION: SATISFACTORY POSITION OF THE NASOGASTRIC TUBE. NO RADIOGRAPHIC EVIDENCE FOR ACUTE ABDOMINAL DISEASE. Abdomen Ultrasound 02/14/19 00:00 IMPRESSION: Thickened gallbladder wall. No pericholecystic edema or stones. Fatty infiltrated liver with hepatomegaly. Abdomen/Pelvis CT 02/15/19 00:00 IMPRESSION: 1. Complete opacification of left hemithorax consistent with dense consolidation. Small left effusion. 2. Fairly extensive right upper and right lower lobe infiltrate consistent with pneumonia as well. Small right effusion. IMPRESSION: 1. Small amount of ascites. 2. Thickened gallbladder wall with surrounding inflammation. Acute c holecystitis cannot be excluded. Chest CT 02/22/19 00:00 IMPRESSION: 1. Improved aeration of the left upper and lower lobes with persistent multifocal bilateral consolidation and ground-glass attenuation suggestive of multifocal pneumonia. 2. Mild right and [id number] left-sided pleural effusion, increased from prior CT. Thoracentesis Ultrasound 02/23/19 00:00 IMPRESSION: SUCCESSFUL THORACENTESIS USING ULTRASOUND GUIDANCE. Chest X-Ray 02/23/19 13:25 IMPRESSION: No pneumothorax post left thoracentesis. Status: Image reviewed by me Assessment & Plan - Diagnosis (1) Lymphoma Qualifiers: Lymphoma type: unspecified type Lymphoma site: extranodal excluding spleen and other solid organs Qualified Code(s): C85.99 - Non-Hodgkin lymphoma, unspecified, extranodal and solid organ sites Is this a current diagnosis for this admission?: Yes Plan: I believe is unlikely going to be lymphoma, we do have culture positivity now for Legionella pneumonia so that would fit because he lives with many people in a tight house, so there were outbreaks recently in different areas so someone may have transmitted to him. Await flow cytometry and will discuss with him once we have that back. - Time Time Spent: Greater than 70 Minutes - Inpatient Certification Based on my medical assessment, after consideration of the patient's comorbidities, presenting symptoms, or acuity I expect that the services needed warrant INPATIENT care.: Yes I certify that my determination is in accordance with my understanding of Medicare's requirements for reasonable and necessary INPATIENT services [42 CFR 412.3e].: Yes Medical Necessity: Need for Nebulizer Therapy and Monitoring of Response, Risk of Complication if Not Cared For in Hospital
[2019-02-25] MEDS: AZITHROMYCIN 500 MG in DEXTROSE 5%-WATER 250 ML IV SCH (15:47)
[2019-02-25] MEDS: NICOTINE 21 MG/24 HR PATCH.TD24 TD PRN (21:15)
[2019-02-26] MEDS: ALBUTEROL SULFATE 0.083% NEB 2.5 MG/3 ML AMPUL NEB SCH ×6 (04:11→23:53)
[2019-02-26] MEDS ORDERED: POTASSIUM CHLORIDE 10 MEQ CAPSULE.ER PO ONE (09:06)
--- NOTE | 2019-02-26 09:09 | PDOC PROGRESS REPORT ---
Subjective Progress Note for:: 02/26/19 Subjective:: 02/22/2019-weakness 02/23/2019-no complaints this a.m. 02/24/2019-no complaints 02/25/2019-no complaints at this time. 02/26/2019-no complaints Reason For Visit: PNEUMONIA,ACUTE HYPOXIC RESPIRATORY FAILURE,SIRS Physical Exam Vital Signs: Temp Pulse Resp BP Pulse Ox 99.5 F 106 H 18 139/79 H 91 L 02/26/19 07:46 02/26/19 07:46 02/26/19 07:46 02/26/19 07:46 02/26/19 07:46 Pulse Oximeter Continuous Start: 02/12/19 06:14 Freq: RTQ4 Status: Complete Protocol: Document 02/12/19 10:31 [facility] (Rec: 02/12/19 10:32 [facility] [id number]) Pulse Oximetry Assessment Equipment Usage Equipment Standby Continuous SpO2 Machine # na Intake & Output 02/25/19 02/26/19 02/27/19 07:59 06:59 06:59 Intake Total Balance Weight General appearance: PRESENT: no acute distress, well-developed, well-nourished Head exam: PRESENT: atraumatic, normocephalic Eye exam: PRESENT: conjunctiva pink, EOMI, PERRLA. ABSENT: scleral icterus Ear exam: PRESENT: normal external ear exam Mouth exam: PRESENT: moist, tongue midline Neck exam: ABSENT: carotid bruit, JVD, lymphadenopathy, thyromegaly Respiratory exam: PRESENT: clear to auscultation raul, decreased breath sounds, symmetrical, unlabored. ABSENT: rales, rhonchi, wheezes Cardiovascular exam: PRESENT: RRR. ABSENT: diastolic murmur, rubs, systolic murmur Pulses: PRESENT: normal dorsalis pedis pul Vascular exam: PRESENT: normal capillary refill GI/Abdominal exam: PRESENT: normal bowel sounds, soft. ABSENT: distended, guarding, mass, organolmegaly, rebound, tenderness Rectal exam: PRESENT: deferred Extremities exam: PRESENT: full ROM. ABSENT: calf tenderness, clubbing, pedal edema Neurological exam: PRESENT: alert, awake, oriented to person, oriented to place, oriented to time, oriented to situation, CN II-XII grossly intact. ABSENT: motor sensory deficit Psychiatric exam: PRESENT: appropriate affect, normal mood. ABSENT: homicidal ideation, suicidal ideation Skin exam: PRESENT: dry, intact, warm. ABSENT: cyanosis, rash Results Laboratory Results: 02/24/19 05:02 02/24/19 05:02 02/23/19 11:15 Thoracic Fluid Gram Stain - Final 02/14/19 12:26 Tracheal Aspirate Legionella Culture - Final 02/14/19 12:26 Tracheal Aspirate Legionella Culture - Final 02/22/19 12:00 Sputum Gram Stain - Final 02/22/19 12:00 Sputum Sputum Culture - Final Staphylococcus Aureus Normal [place] 02/13/19 02/13/19 02/13/19 14:50 14:50 21:17 Creatine Kinase 76 < 20 L Troponin I 0.020 Impressions: KUB X-Ray 02/13/19 09:59 IMPRESSION: SATISFACTORY POSITION OF THE NASOGASTRIC TUBE. NO RADIOGRAPHIC EVIDENCE FOR ACUTE ABDOMINAL DISEASE. Abdomen Ultrasound 02/14/19 00:00 IMPRESSION: Thickened gallbladder wall. No pericholecystic edema or stones. Fatty infiltrated liver with hepatomegaly. Abdomen/Pelvis CT 02/15/19 00:00 IMPRESSION: 1. Complete opacification of left hemithorax consistent with dense consolidation. Small left effusion. 2. Fairly extensive right upper and right lower lobe infiltrate consistent with pneumonia as well. Small right effusion. IMPRESSION: 1. Small amount of ascites. 2. Thickened gallbladder wall with surrounding inflammation. Acute cholecystitis cannot be excluded. Chest CT 02/22/19 00:00 IMPRESSION: 1. Improved aeration of the left upper and lower lobes with persistent multifocal bilateral consolidation and ground-glass attenuation suggestive of multifocal pneumonia. 2. Mild right and [id number] left-sided pleural effusion, increased from prior CT. Thoracentesis Ultrasound 02/23/19 00:00 IMPRESSION: SUCCESSFUL THORACENTESIS USING ULTRASOUND GUIDANCE. Chest X-Ray 02/23/19 13:25 IMPRESSION: No pneumothorax post left thoracentesis. Assessment and Plan - Diagnosis (1) ARDS (adult respiratory distress syndrome) Is this a current diagnosis for this admission?: Yes Plan: 02/22/2019-resolved stable. Patient seen on side of bed breathing talking in full sentences. Required supplemental oxygen still but much improved. We will continue to follow 02/23/2019-stable continue to follow. 02/24/2019-stable 02/25/2019-stable continue to follow 02/26/2019-resolved stable. (2) Acute respiratory failure with hypoxia Is this a current diagnosis for this admission?: Yes Plan: Patient was treated with supplemental oxygen via nasal cannula, or more aggressive therapy as required to maintain an oxygen saturation of the 93%. O2 sat will be monitored frequently throughout his hospital course. 02/22/2019-continues show improvement. Remains on supplemental oxygen at this time. Will start aggressive pulmonary toileting. 02/23/2019-remains on supplemental oxygen. Continue aggressive pulmonary toileting. 02/24/2019-stable continues on supplemental oxygen. Continue aggressive pulmonary toileting 02/25/2019-resolved 02/26/2019-resolved. Stable (3) Aspiration pneumonia due to gastric secretions Qualifiers: Laterality: bilateral Lung location: unspecified part of lung Qualified Code(s): J69.0 - Pneumonitis due to inhalation of food and vomit Is this a current diagnosis for this admission?: Yes Plan: 02/22/2019- Patient remains weak secondary to a complicated medical admission. Patient's chest x-ray per my viewing shows a almost complete widening out of his left lung. This is not much improved from previous x-rays. As patient does have this history of aspiration pneumonia I will place patient back on Zosyn obtain repeat blood cultures and sputum cultures patient is on a white count increased which could be secondary to steroid use but given his severity disease I opted to treat him more aggressively. I have also added a HIV screen given patient's severity of disease. 02/23/2019-chest CT yesterday showed multifocal focal pneumonia. I have reinstituted patient on IV antibiotics vancomycin, Zosyn and azithromycin. HIV screen was negative. Patient will undergo thoracentesis today. Once thoracentesis complete we will send off fluid for cytology and flow cytometry. Dr. Jace franco has been consulted to review patient for possible lymphoma 02/24/2019-patient continues on vancomycin, Zosyn and azithromycin. Thoracentesis yesterday with 450 mL's of fluid removed and sent for cytology and flow cytometry. Awaiting recommendations from Dr. Jace franco. 02/25/2019-patient continues on vancomycin Zosyn and azithromycin. I will repeat chest x-ray in a.m. I am waiting for flow cytometry to return. And recommendations per oncology as needed. 02/26/2019-patient tested positive for Legionella. I have DC'd vancomycin and Zosyn we will continue azithromycin IV. Anticipate discharge home in a.m. (4) Alcohol withdrawal delirium Is this a current diagnosis for this admission?: Yes Plan: 2018-stable at this time no signs of DT. Will follow 02/23/2019-stable 02/24/2019-stable 02/25/2019-stable 02/26/2019-stable continue to follow (5) Pleural cavity effusion Is this a current diagnosis for this admission?: Yes Plan: 02/22/2019-stable at this time 02/23/2019 stable 02/24/2019-stable 02/25/2019-stable 10/26/2018-stable (6) Lymphoma Qualifiers: Lymphoma type: unspecified type Lymphoma site: extranodal excluding spleen and other solid organs Qualified Code(s): C85.99 - Non-Hodgkin lymphoma, unspecified, extranodal and solid organ sites Is this a current diagnosis for this admission?: Yes Plan: 02/23/2019-patient will be seen by Dr. Jace franco for evaluation. Thoracic fluid will be sent off for flow cytometry. 02/24/2019-awaiting oncology recommendations and flow cytometry. 02/25/2019-awaiting flow cytometry. Will await regulation per oncology after return. 02/26/2019-discussed with Dr. Jace franco yesterday. Awaiting flow cytometry. Dr. Jace franco believes this is most likely to be from chronic alcoholism. Will await test results and change plan of care as appropriate. (7) Hypokalemia Is this a current diagnosis for this admission?: Yes Plan: 02/26/2019-40 mEq p.o. KCl times 1 repeat BMP in a.m. - Time Time Spent with patient: 15-24 minutes - Inpatient Certification Based on my medical assessment, after consideration of the patient's comorbidities, presenting symptoms, or acuity I expect that the services needed warrant INPATIENT care.: Yes I certify that my determination is in accordance with my understanding of Medicare's requirements for reasonable and necessary INPATIENT services [42 CFR 412.3e].: Yes Medical Necessity: Significant Comorbidiites Make Outpatient Treatment Too Risky, Need Close Monitoring Due to Risk of Patient Decompensation, Need for IV Antibiotics
[2019-02-26] MEDS: PREDNISONE 20 MG TABLET PO SCH (09:23)
[2019-02-26] MEDS: QUETIAPINE FUMARATE 100 MG TABLET PO SCH ×2 (09:24→21:34)
[2019-02-26] MEDS: FOLIC ACID 1 MG TABLET PO SCH (09:24)
[2019-02-26] MEDS: MULTIVITAMIN TABLET PO SCH (09:24)
[2019-02-26] MEDS: SILVER SULFADIAZINE 1% CREAM 400 GM TP SCH ×2 (09:24→17:49)
[2019-02-26] MEDS: THIAMINE HCL 100 MG TABLET PO SCH (09:24)
--- NOTE | 2019-02-26 09:43 | RADIOLOGY REPORT (SQ) ---
EXAM DESCRIPTION: CHEST SINGLE VIEW COMPLETED DATE/TIME: 02/26/2019 9:30 am REASON FOR STUDY: pneumonia COMPARISON: 02/23/2019. FINDINGS: Single-view chest, AP portable upright. Stable appearance. Includes extensive airspace disease throughout the left lung with patchy right pneumonitis as well. No pneumothorax. Stable cardiomediastinal silhouette. TECHNICAL DOCUMENTATION: JOB ID: [id number] Reading location - IP/workstation name: [email or web address]
[2019-02-26] MEDS: AZITHROMYCIN 500 MG in DEXTROSE 5%-WATER 250 ML IV SCH (15:15)
[2019-02-26] MEDS: NICOTINE 21 MG/24 HR PATCH.TD24 TD PRN (18:24)
[2019-02-27] MEDS: ALBUTEROL SULFATE 0.083% NEB 2.5 MG/3 ML AMPUL NEB SCH ×5 (04:19→19:48)
[2019-02-27 05:24] LABS: HEMOGLOBIN 8.1 g/dL (13.5-17.0); MEAN CORPUSCULAR HEMOGLOBIN 33.8 pg (27.0-33.4); MEAN CORPUSCULAR HGB CONC 33.5 g/dL (32.0-36.0); MEAN CORPUSCULAR VOLUME 101 fl (80-97); PLATELET COUNT 581 10^3/uL (150-450); RED BLOOD COUNT 2.38 10^6/uL (4.35-5.55); WHITE BLOOD COUNT 11.3 10^3/uL (4.0-10.5)
[2019-02-27 05:57] LABS: ANION GAP 8 (5-19); BLOOD UREA NITROGEN 16 mg/dL (7-20); CALCIUM 8.9 mg/dL (8.4-10.2); CARBON DIOXIDE 25 mmol/L (22-30); CHLORIDE 111 mmol/L (98-107); GLUCOSE 81 mg/dL (75-110); POTASSIUM 3.9 mmol/L (3.6-5.0)
[2019-02-27] MEDS: ACETAMINOPHEN SOLN 325 MG/10.15 ML UDCUP PO PRN (07:36)
--- NOTE | 2019-02-27 08:17 | PDOC PROGRESS REPORT ---
Subjective Progress Note for:: 02/27/19 Subjective:: 02/22/2019-weakness 02/23/2019-no complaints this a.m. 02/24/2019-no complaints 02/25/2019-no complaints at this time. 02/26/2019-no complaints 02/27/2019-no complaints this a.m. Reason For Visit: PNEUMONIA,ACUTE HYPOXIC RESPIRATORY FAILURE,SIRS Physical Exam Vital Signs: Temp Pulse Resp BP Pulse Ox 98.2 F 81 19 144/89 H 99 02/27/19 03:12 02/27/19 07:00 02/27/19 03:12 02/27/19 03:12 02/27/19 03:12 Pulse Oximeter Continuous Start: 02/12/19 06:14 Freq: RTQ4 Status: Complete Protocol: Document 02/12/19 10:31 [facility] (Rec: 02/12/19 10:32 [facility] [id number]) Pulse Oximetry Assessment Equipment Usage Equipment Standby Continuous SpO2 Machine # na Intake & Output 02/26/19 02/27/19 02/28/19 06:59 06:59 06:59 Intake Total 2710 Balance 2710 Weight 67.9 kg General appearance: PRESENT: no acute distress, well-developed, well-nourished Neck exam: ABSENT: carotid bruit, JVD, lymphadenopathy, thyromegaly Respiratory exam: PRESENT: clear to auscultation raul, decreased breath sounds, symmetrical, tachypnea, unlabored. ABSENT: rales, rhonchi, wheezes Cardiovascular exam: PRESENT: RRR. ABSENT: diastolic murmur, rubs, systolic murmur Pulses: PRESENT: normal dorsalis pedis pul Vascular exam: PRESENT: normal capillary refill GI/Abdominal exam: PRESENT: normal bowel sounds, soft. ABSENT: distended, guarding, mass, organolmegaly, rebound, tenderness Extremities exam: PRESENT: full ROM. ABSENT: calf tenderness, clubbing, pedal edema Neurological exam: PRESENT: alert, awake, oriented to person, oriented to place, oriented to time, oriented to situation, CN II-XII grossly intact. ABSENT: motor sensory deficit Psychiatric exam: PRESENT: appropriate affect, normal mood. ABSENT: homicidal ideation, suicidal ideation Skin exam: PRESENT: dry, intact, warm. ABSENT: cyanosis, rash Results Laboratory Results: 02/27/19 03:56 02/27/19 03:56 02/27/19 02/27/19 03:56 03:56 WBC 11.3 H RBC 2.38 L Hgb 8.1 L Hct 24.0 L MCV 101 H MCH 33.8 H MCHC 33.5 RDW 13.0 Plt Count 581 H Sodium 143.8 Potassium 3.9 Chloride 111 H Carbon Dioxide 25 Anion Gap 8 BUN 16 Creatinine 1.29 H Est GFR ( Amer) > 60 Glucose 81 Calcium 8.9 02/23/19 11:15 Thoracic Fluid Gram Stain - Final 02/13/19 02/13/19 02/13/19 14:50 14:50 21:17 Creatine Kinase 76 < 20 L Troponin I 0.020 Impressions: KUB X-Ray 02/13/19 09:59 IMPRESSION: SATISFACTORY POSITION OF THE NASOGASTRIC TUBE. NO RADIOGRAPHIC EVIDENCE FOR ACUTE ABDOMINAL DISEASE. Abdomen Ultrasound 02/14/19 00:00 IMPRESSION: Thickened gallbladder wall. No pericholecystic edema or stones. Fatty infiltrated liver with hepatomegaly. Abdomen/Pelvis CT 02/15/19 00:00 IMPRESSION: 1. Complete opacification of left hemithorax consistent with dense consolidation. Small left effusion. 2. Fairly extensive right upper and right lower lobe infiltrate consistent with pneumonia as well. Small right effusion. IMPRESSION: 1. Small amount of ascites. 2. Thickened gallbladder wall with surrounding inflammation. Acute cholecystitis cannot be excluded. Chest CT 02/22/19 00:00 IMPRESSION: 1. Improved aeration of the left upper and lower lobes with persistent multifocal bilateral consolidation and ground-glass attenuation suggestive of multifocal pneumonia. 2. Mild right and [id number]-[id number] left-sided pleural effusion, increased from prior CT. Thoracentesis Ultrasound 02/23/19 00:00 IMPRESSION: SUCCESSFUL THORACENTESIS USING ULTRASOUND GUIDANCE. Assessment and Plan - Diagnosis (1) ARDS (adult respiratory distress syndrome) Is this a current diagnosis for this admission?: Yes Plan: 02/22/2019-resolved stable. Patient seen on side of bed breathing talking in full sentences. Required supplemental oxygen still but much improved. We will continue to follow 02/23/2019-stable continue to follow. 02/24/2019-stable 02/25/2019-stable continue to follow 02/26/2019-resolved stable. 02/27/2019-stable (2) Acute respiratory failure with hypoxia Is this a current diagnosis for this admission?: Yes Plan: Patient was treated with supplemental oxygen via nasal cannula, or more aggressive therapy as required to maintain an oxygen saturation of the 93%. O2 sat will be monitored frequently throughout his hospital course. 02/22/2019-continues show improvement. Remains on supplemental oxygen at this time. Will start aggressive pulmonary toileting. 02/23/2019-remains on supplemental oxygen. Continue aggressive pulmonary toileting. 02/24/2019-stable continues on supplemental oxygen. Continue aggressive pulmonary toileting 02/25/2019-resolved 02/26/2019-resolved. Stable 02/27/2019-patient remains on supplemental oxygen. I walked him down the [place] this morning with heart rate jumping to 130s to 140s and oxygen saturation down to 89%. Patient was tachypneic. At this time will have patient seen by physical therapy for conditioning and he would walk the [place] as much as possible to wean oxygen off as tolerated and incentive spirometry use. (3) Aspiration pneumonia due to gastric secretions Qualifiers: Laterality: bilateral Lung location: unspecified part of lung Qualified Code(s): J69.0 - Pneumonitis due to inhalation of food and vomit Is this a current diagnosis for this admission?: Yes Plan: 02/22/2019- Patient remains weak secondary to a complicated medical admission. Patient's chest x-ray per my viewing shows a almost complete widening out of his left lung. This is not much improved from previous x-rays. As patient does have this history of aspiration pneumonia I will place patient back on Zosyn obtain repeat blood cultures and sputum cultures patient is on a white count increased which could be secondary to steroid use but given his severity disease I opted to treat him more aggressively. I have also added a HIV screen given patient's severity of disease. 02/23/2019-chest CT yesterday showed multifocal focal pneumonia. I have reinstituted patient on IV antibiotics vancomycin, Zosyn and azithromycin. HIV screen was negative. Patient will undergo thoracentesis today. Once thoracentesis complete we will send off fluid for cytology and flow cytometry. Dr. Jace franco has been consulted to review patient for possible lymphoma 02/24/2019-patient continues on vancomycin, Zosyn and azithromycin. Thoracentesis yesterday with 450 mL's of fluid removed and sent for cytology and flow cytometry. Awaiting recommendations from Dr. Jace franco. 02/25/2019-patient continues on vancomycin Zosyn and azithromycin. I will repeat chest x-ray in a.m. I am waiting for flow cytometry to return. And recommendations per oncology as needed. 02/26/2019-patient tested positive for Legionella. I have DC'd vancomycin and Zosyn we will continue azithromycin IV. Anticipate discharge home in a.m. 02/27/2019-positive for Legionella continue azithromycin for a total of 10 days (4) Alcohol withdrawal delirium Is this a current diagnosis for this admission?: Yes Plan: 2018-stable at this time no signs of DT. Will follow 02/23/2019-stable 02/24/2019-stable 02/25/2019-stable 02/26/2019-stable continue to follow 02/27/2019-no withdrawal symptoms. Stable (5) Pleural cavity effusion Is this a current diagnosis for this admission?: Yes Plan: 02/22/2019-stable at this time 02/23/2019 stable 02/24/2019-stable 02/25/2019-stable 10/26/2018-stable 02/27/2019-stable (6) Lymphoma Qualifiers: Lymphoma type: unspecified type Lymphoma site: extranodal excluding spleen and other solid organs Qualified Code(s): C85.99 - Non-Hodgkin lymphoma, unspecified, extranodal and solid organ sites Is this a current diagnosis for this admission?: Yes Plan: 02/23/2019-patient will be seen by Dr. Jace franco for evaluation. Thoracic fluid will be sent off for flow cytometry. 02/24/2019-awaiting oncology recommendations and flow cytometry. 02/25/2019-awaiting flow cytometry. Will await regulation per oncology after return. 02/26/2019-discussed with Dr. Jace franco yesterday. Awaiting flow cytometry. Dr. Jace franco believes this is most likely to be from chronic alcoholism. Will await test results and change plan of care as appropriate. 02/27/2019-continue awaiting flow cytometry (7) Hypokalemia Is this a current diagnosis for this admission?: Yes Plan: 02/26/2019-40 mEq p.o. KCl times 1 repeat BMP in a.m. 02/27/2019-stable continue to follow daily BMP - Time Time Spent with patient: 15-24 minutes - Inpatient Certification Based on my medical assessment, after consideration of the patient's comorbidities, presenting symptoms, or acuity I expect that the services needed warrant INPATIENT care.: Yes I certify that my determination is in accordance with my understanding of Medicare's requirements for reasonable and necessary INPATIENT services [42 CFR 412.3e].: Yes Medical Necessity: Need for IV Antibiotics
[2019-02-27] MEDS: SILVER SULFADIAZINE 1% CREAM 400 GM TP SCH (09:01)
[2019-02-27] MEDS: MULTIVITAMIN TABLET PO SCH (09:03)
[2019-02-27] MEDS: QUETIAPINE FUMARATE 100 MG TABLET PO SCH ×2 (09:03→21:27)
[2019-02-27] MEDS: FOLIC ACID 1 MG TABLET PO SCH (09:03)
[2019-02-27] MEDS: PREDNISONE 20 MG TABLET PO SCH (09:03)
[2019-02-27] MEDS: THIAMINE HCL 100 MG TABLET PO SCH (09:03)
[2019-02-27] MEDS: AZITHROMYCIN 500 MG in DEXTROSE 5%-WATER 250 ML IV SCH (14:31)
[2019-02-27] MEDS: NICOTINE 21 MG/24 HR PATCH.TD24 TD PRN (21:27)
[2019-02-28] MEDS: ALBUTEROL SULFATE 0.083% NEB 2.5 MG/3 ML AMPUL NEB SCH ×4 (00:03→12:02)
[2019-02-28 05:40] LABS: HEMATOCRIT 24.4 % (37.9-51.0); HEMOGLOBIN 8.3 g/dL (13.5-17.0); MEAN CORPUSCULAR HEMOGLOBIN 34.2 pg (27.0-33.4); MEAN CORPUSCULAR HGB CONC 34.1 g/dL (32.0-36.0); MEAN CORPUSCULAR VOLUME 100 fl (80-97); PLATELET COUNT 533 10^3/uL (150-450); RED BLOOD COUNT 2.44 10^6/uL (4.35-5.55); RED CELL DISTRIBUTION WIDTH 13.1 % (11.5-14.0); WHITE BLOOD COUNT 11.5 10^3/uL (4.0-10.5)
[2019-02-28 06:18] LABS: ANION GAP 7 (5-19); BLOOD UREA NITROGEN 17 mg/dL (7-20); CARBON DIOXIDE 28 mmol/L (22-30); CHLORIDE 107 mmol/L (98-107); GLUCOSE 80 mg/dL (75-110); POTASSIUM 3.5 mmol/L (3.6-5.0)
[2019-02-28] MEDS: QUETIAPINE FUMARATE 100 MG TABLET PO SCH ×2 (09:08→22:46)
[2019-02-28] MEDS: PREDNISONE 20 MG TABLET PO SCH (09:08)
[2019-02-28] MEDS: FOLIC ACID 1 MG TABLET PO SCH (09:08)
[2019-02-28] MEDS: THIAMINE HCL 100 MG TABLET PO SCH (09:09)
[2019-02-28] MEDS: MULTIVITAMIN TABLET PO SCH (09:09)
[2019-02-28] MEDS ORDERED: NORMAL SALINE 1000 ML 1,000 ML IV PRN ×2 (10:27→14:45)
[2019-02-28] MEDS: CARVEDILOL 6.25 MG TABLET PO SCH ×2 (13:03→22:46)
[2019-02-28] MEDS ORDERED: ALBUTEROL SULFATE 0.083% NEB 2.5 MG/3 ML AMPUL NEB PRN (17:50)
--- NOTE | 2019-02-28 18:01 | PDOC PROGRESS REPORT ---
Subjective Progress Note for:: 02/28/19 Subjective:: Patient was seen on afternoon rounds; is found sitting up to the edge of the bed, comfortably, on supplemental oxygen by nasal cannula 2 L/min. He is not home O2 dependent. He tells me that he is feeling slightly better today. He reports that he was able to ambulate the hallways without increased work of breathing, but with noted tachycardia upon her return to his room (per nursing heart rate in the 140s and SpO2 89% on room air). He reports improved appetite; has lost approximately 30 pounds since admission. Otherwise, he is looking forward to discharge in the near future. He denies fever, chills, chest pain, orthopnea, cough, abdominal pain, nausea vomiting and diarrhea. He has no other questions or concerns at this time. No concerns per nursing. Reason For Visit: PNEUMONIA,ACUTE HYPOXIC RESPIRATORY FAILURE,SIRS Physical Exam Vital Signs: Temp Pulse Resp BP Pulse Ox 99.2 F 105 H 17 146/98 H 96 02/28/19 11:30 02/28/19 14:00 02/28/19 12:05 02/28/19 11:30 02/28/19 12:05 Pulse Oximeter Continuous Start: 02/12/19 06:14 Freq: RTQ4 Status: Complete Protocol: Document 02/12/19 10:31 [facility] (Rec: 02/12/19 10:32 [facility] [id number]) Pulse Oximetry Assessment Equipment Usage Equipment Standby Continuous SpO2 Machine # na Intake & Output 02/27/19 02/28/19 03/01/19 06:59 06:59 06:59 Intake Total 2710 1090 2360 Balance 2710 1090 2360 Weight 67.9 kg 66.2 kg General appearance: PRESENT: no acute distress, cooperative, thin, well- developed, well-nourished Head exam: PRESENT: atraumatic, normocephalic Eye exam: PRESENT: conjunctiva pink, EOMI, PERRLA. ABSENT: scleral icterus Ear exam: PRESENT: normal external ear exam Mouth exam: PRESENT: moist, tongue midline Neck exam: ABSENT: carotid bruit, JVD, lymphadenopathy, thyromegaly Respiratory exam: PRESENT: clear to auscultation raul, symmetrical, unlabored. ABSENT: rales, rhonchi, wheezes Cardiovascular exam: PRESENT: RRR, +S1, +S2, tachycardia. ABSENT: diastolic murmur, rubs, systolic murmur Pulses: PRESENT: normal dorsalis pedis pul Vascular exam: PRESENT: normal capillary refill GI/Abdominal exam: PRESENT: normal bowel sounds, soft. ABSENT: distended, guarding, mass, organolmegaly, rebound, tenderness Rectal exam: PRESENT: deferred Extremities exam: PRESENT: full ROM. ABSENT: calf tenderness, clubbing, pedal edema Musculoskeletal exam: PRESENT: ambulatory Neurological exam: PRESENT: alert, awake, oriented to person, oriented to place, oriented to time, oriented to situation, CN II-XII grossly intact. ABSENT: motor sensory deficit Psychiatric exam: PRESENT: appropriate affect, normal mood. ABSENT: homicidal ideation, suicidal ideation Skin exam: PRESENT: dry, intact, warm. ABSENT: cyanosis, rash Results Laboratory Results: 02/28/19 04:38 02/28/19 04:38 02/28/19 02/28/19 04:38 04:38 WBC 11.5 H RBC 2.44 L Hgb 8.3 L Hct 24.4 L MCV 100 H MCH 34.2 H MCHC 34.1 RDW 13.1 Plt Count 533 H Sodium 141.9 Potassium 3.5 L Chloride 107 Carbon Dioxide 28 Anion Gap 7 BUN 17 Creatinine 1.41 H Est GFR ( Amer) > 60 Glucose 80 Calcium 9.0 02/17/19 16:45 Bronchial Washings Legionella Culture - Final 02/17/19 16:45 Bronchial Washings Legionella Culture - Final 02/13/19 02/13/19 02/13/19 14:50 14:50 21:17 Creatine Kinase 76 < 20 L Troponin I 0.020 Impressions: KUB X-Ray 02/13/19 09:59 IMPRESSION: SATISFACTORY POSITION OF THE NASOGASTRIC TUBE. NO RADIOGRAPHIC EVIDENCE FOR ACUTE ABDOMINAL DISEASE. Abdomen Ultrasound 02/14/19 00:00 IMPRESSION: Thickened gallbladder wall. No pericholecystic edema or stones. Fatty infiltrated liver with hepatomegaly. Abdomen/Pelvis CT 02/15/19 00:00 IMPRESSION: 1. Complete opacification of left hemithorax consistent with dense consolidation. Small left effusion. 2. Fairly extensive right upper and right lower lobe infiltrate consistent with pneumonia as well. Small right effusion. IMPRESSION: 1. Small amount of ascites. 2. Thickened gallbladder wall with surrounding inflammation. Acute cholecystitis cannot be excluded. Chest CT 02/22/19 00:00 IMPRESSION: 1. Improved aeration of the left upper and lower lobes with persistent multifocal bilateral consolidation and ground-glass attenuation suggestive of multifocal pneumonia. 2. Mild right and adlh-tx-mxvmvoyv left-sided pleural effusion, increased from prior CT. Thoracentesis Ultrasound 02/23/19 00:00 IMPRESSION: SUCCESSFUL THORACENTESIS USING ULTRASOUND GUIDANCE. Assessment and Plan - Diagnosis (1) Hypertension Is this a current diagnosis for this admission?: Yes Plan: Blood pressure 146/98 today; have noted multiple hypertensive episodes throughout his admission. Patient denies prior history of the same, although does admit that he has had poor healthcare utilization. He is agreeable to starting antihypertensive medications today. Start carvedilol 6.25 mg twice daily. (2) ALDO (acute kidney injury) Is this a current diagnosis for this admission?: Yes Plan: Cr 1.41; up from baseline of 1.04 at time of admission. Likely multifactorial; prerenal secondary to hypotension/sepsis and use of nephrotoxic medications (IV contrast, Vancomycin). Will provide 2 L NS today Avoid nephrotoxic medications as able. Follow-up chemistry in the morning. (3) Tachycardia Is this a current diagnosis for this admission?: Yes Plan: Multifactorial; secondary to debility (prolonged acute illness: pneumonia/ARDS), possible dehydration (ALDO), and side effect of frequent albuterol nebulizer latrice tments. We will provide IV fluids as above. Decrease albuterol treatments. Encouraged mobility/ambulation. Continue monitor on telemetry. Have started low-dose carvedilol for treatment of hypertension. (4) Legionella pneumonia Is this a current diagnosis for this admission?: Yes Plan: Tracheal aspirate positive for Legionella. Patient has been afebrile for greater than 48 hours with stable/downward trend of WBCs. Received 5-day course of IV azithromycin; discontinue today. Continue supplemental oxygen as needed to maintain oxygen saturations. Continue twice daily DuoNeb treatments. Albuterol as needed. Encourage pulmonary toilet with incentive spirometer, flutter valve, ambulation. (5) Acute respiratory failure with hypoxia Is this a current diagnosis for this admission?: Yes Plan: Secondary to #1, aspiration pneumonia, and ARDS. Significantly improved; no maintaining oxygen saturations on room air while at rest. Does continue to have slight desaturation and tachycardic events while ambulatory on room air. Continue plan as above. (6) Alcohol abuse Is this a current diagnosis for this admission?: Yes Plan: Mental health services were consulted; cleared from psychiatric perspective. Outside window for concern for withdrawal symptoms. Continue daily multivitamin, folic acid, and thiamine supplementation. Discharge planning is consulted. (7) Lymphoma Qualifiers: Lymphoma type: unspecified type Lymphoma site: extranodal excluding spleen and other solid organs Qualified Code(s): C85.99 - Non-Hodgkin lymphoma, unspecified, extranodal and solid organ sites Is this a current diagnosis for this admission?: Yes Plan: Hematology/oncology is consulted; appreciate Dr. Argueta's evaluation. Awaiting flow cytometry results. (8) Hypokalemia Is this a current diagnosis for this admission?: Yes Plan: Replete. Should be improved not patient is eating adequately. Continue daily chemistries and replace as necessary. Replete. (9) Alcohol withdrawal delirium Is this a current diagnosis for this admission?: Yes Plan: Resolved. (10) ARDS (adult respiratory distress syndrome) Is this a current diagnosis for this admission?: Yes Plan: Resolved; extubated 02/19 (11) Aspiration pneumonia due to gastric secretions Qualifiers: Laterality: bilateral Lung location: unspecified part of lung Qualified Code(s): J69.0 - Pneumonitis due to inhalation of food and vomit Is this a current diagnosis for this admission?: Yes Plan: Patient received full course of IV vancomycin and Zosyn for aspiration pneumonia followed by IV azithromycin for Legionella detected and tracheal aspirate. Remaining management as above. (12) Pleural cavity effusion Is this a current diagnosis for this admission?: Yes Plan: Stable. - Time Time Spent with patient: 35 or more minutes Medications reviewed and adjusted accordingly: Yes Anticipated discharge: Home Within: within 48 hours
[2019-02-28] MEDS: IPRATROPIUM/ALBUTEROL 0.5-2.5 MG/3 ML AMPUL NEB SCH (19:51)
[2019-02-28] MEDS: NICOTINE 21 MG/24 HR PATCH.TD24 TD PRN (22:48)
[2019-03-01 04:47] LABS: HEMATOCRIT 24.9 % (37.9-51.0); HEMOGLOBIN 8.3 g/dL (13.5-17.0); MEAN CORPUSCULAR HEMOGLOBIN 33.2 pg (27.0-33.4); MEAN CORPUSCULAR HGB CONC 33.4 g/dL (32.0-36.0); MEAN CORPUSCULAR VOLUME 99 fl (80-97); PLATELET COUNT 450 10^3/uL (150-450); RED BLOOD COUNT 2.51 10^6/uL (4.35-5.55); RED CELL DISTRIBUTION WIDTH 13.3 % (11.5-14.0); WHITE BLOOD COUNT 12.7 10^3/uL (4.0-10.5)
[2019-03-01 05:11] LABS: ANION GAP 11 (5-19); BLOOD UREA NITROGEN 18 mg/dL (7-20); CALCIUM 8.8 mg/dL (8.4-10.2); CARBON DIOXIDE 24 mmol/L (22-30); CHLORIDE 106 mmol/L (98-107); GLUCOSE 74 mg/dL (75-110); POTASSIUM 3.7 mmol/L (3.6-5.0)
[2019-03-01] MEDS: IPRATROPIUM/ALBUTEROL 0.5-2.5 MG/3 ML AMPUL NEB SCH (07:33)
--- NOTE | 2019-03-01 08:32 | PDOC PROGRESS REPORT ---
Subjective Progress Note for:: 03/01/19 Subjective:: Patient is getting better, oxygen status is improving, I reviewed his flow cytometry with patient and this is negative for leukemia or lymphoma. Reason For Visit: PNEUMONIA,ACUTE HYPOXIC RESPIRATORY FAILURE,SIRS Physical Exam Vital Signs: Temp Pulse Resp BP Pulse Ox 98.6 F 87 16 150/86 H 95 03/01/19 03:29 03/01/19 07:33 03/01/19 07:33 03/01/19 03:29 03/01/19 07:33 Pulse Oximeter Continuous Start: 02/12/19 06:14 Freq: RTQ4 Status: Complete Protocol: Document 02/12/19 10:31 [facility] (Rec: 02/12/19 10:32 [facility] [id number]) Pulse Oximetry Assessment Equipment Usage Equipment Standby Continuous SpO2 Machine # na Intake & Output 02/28/19 03/01/19 03/02/19 06:59 06:59 06:59 Intake Total 1090 2360 Balance 1090 2360 Weight 66.2 kg 66.9 kg General appearance: PRESENT: no acute distress, well-developed, well-nourished Head exam: PRESENT: atraumatic, normocephalic Eye exam: PRESENT: conjunctiva pink, EOMI, PERRLA. ABSENT: scleral icterus Ear exam: PRESENT: normal external ear exam Mouth exam: PRESENT: moist, tongue midline Neck exam: ABSENT: carotid bruit, JVD, lymphadenopathy, thyromegaly Respiratory exam: PRESENT: clear to auscultation raul. ABSENT: rales, rhonchi, wheezes Cardiovascular exam: PRESENT: RRR. ABSENT: diastolic murmur, rubs, systolic murmur Pulses: PRESENT: normal dorsalis pedis pul Vascular exam: PRESENT: normal capillary refill GI/Abdominal exam: PRESENT: normal bowel sounds, soft. ABSENT: distended, guarding, mass, organolmegaly, rebound, tenderness Rectal exam: PRESENT: deferred Extremities exam: PRESENT: full ROM. ABSENT: calf tenderness, clubbing, pedal edema Neurological exam: PRESENT: alert, awake, oriented to person, oriented to place, oriented to time, oriented to situation, CN II-XII grossly intact. ABSENT: motor sensory deficit Psychiatric exam: PRESENT: appropriate affect, normal mood. ABSENT: homicidal ideation, suicidal ideation Skin exam: PRESENT: dry, intact, warm. ABSENT: cyanosis, rash Results Laboratory Results: 03/01/19 03:54 03/01/19 03:54 03/01/19 03/01/19 03:54 03:54 WBC 12.7 H RBC 2.51 L Hgb 8.3 L Hct 24.9 L MCV 99 H MCH 33.2 MCHC 33.4 RDW 13.3 Plt Count 450 Sodium 140.9 Potassium 3.7 Chloride 106 Carbon Dioxide 24 Anion Gap 11 BUN 18 Creatinine 1.20 Est GFR ( Amer) > 60 Glucose 74 L Calcium 8.8 02/17/19 16:45 Bronchial Washings Legionella Culture - Final 02/17/19 16:45 Bronchial Washings Legionella Culture - Final 02/13/19 02/13/19 02/13/19 14:50 14:50 21:17 Creatine Kinase 76 < 20 L Troponin I 0.020 Impressions: KUB X-Ray 02/13/19 09:59 IMPRESSION: SATISFACTORY POSITION OF THE NASOGASTRIC TUBE. NO RADIOGRAPHIC EVIDENCE FOR ACUTE ABDOMINAL DISEASE. Abdomen Ultrasound 02/14/19 00:00 IMPRESSION: Thickened gallbladder wall. No pericholecystic edema or stones. Fatty infiltrated liver with hepatomegaly. Abdomen/Pelvis CT 02/15/19 00:00 IMPRESSION: 1. Complete opacification of left hemithorax consistent with dense consolidation. Small left effusion. 2. Fairly extensive right upper and right lower lobe infiltrate consistent with pneumonia as well. Small right effusion. IMPRESSION: 1. Small amount of ascites. 2. Thickened gallbladder wall with surrounding inflammation. Acute cholecystitis cannot be excluded. Chest CT 02/22/19 00:00 IMPRESSION: 1. Improved aeration of the left upper and lower lobes with persistent multifocal bilateral consolidation and ground-glass attenuation suggestive of multifocal pneumonia. 2. Mild right and eilo-yf-rblizkjg left-sided pleural effusion, increased from prior CT. Thoracentesis Ultrasound 02/23/19 00:00 IMPRESSION: SUCCESSFUL THORACENTESIS USING ULTRASOUND GUIDANCE. Assessment & Plan - Diagnosis (1) Lymphoma Qualifiers: Lymphoma type: unspecified type Lymphoma site: extranodal excluding spleen and other solid organs Qualified Code(s): C85.99 - Non-Hodgkin lymphoma, u nspecified, extranodal and solid organ sites Is this a current diagnosis for this admission?: Yes Plan: Patient does not have a lymphoma currently, all work-up has been negative, repeated pathology as well as flow cytometry is negative so all this was from parapneumonic infection from Legionella. Will sign off, thank you for the opportunity assistance patient care. - Time Time Spent with patient: 35 or more minutes
[2019-03-01] MEDS: FOLIC ACID 1 MG TABLET PO SCH (09:15)
[2019-03-01] MEDS: QUETIAPINE FUMARATE 100 MG TABLET PO SCH (09:15)
[2019-03-01] MEDS: CARVEDILOL 6.25 MG TABLET PO SCH (09:16)
[2019-03-01] MEDS: MULTIVITAMIN TABLET PO SCH (09:16)
[2019-03-01] MEDS: THIAMINE HCL 100 MG TABLET PO SCH (09:17)
[2019-03-01] MEDS ORDERED: PREDNISONE 20 MG TABLET PO SCH (10:00)
[2019-03-01] MEDS ORDERED: ALBUTEROL SULFATE HFA (90 MCG/PUFF) 200 PUFF/8.5 GM MDI IH ONE (10:30)
[2019-03-01 15:41] VITALS: BP 144/86
--- NOTE | 2019-03-05 17:32 | PDOC DISCHARGE SUMMARY ---
Impression - Admit/DC Date/PCP Admission Date/Primary Care Provider: 02/12/19 04:53 Discharge Date: 03/01/19 - Discharge Diagnosis (1) Hypertension Is this a current diagnosis for this admission?: Yes (2) ALDO (acute kidney injury) Is this a current diagnosis for this admission?: Yes (3) Tachycardia Is this a current diagnosis for this admission?: Yes (4) Legionella pneumonia Is this a current diagnosis for this admission?: Yes (5) Acute respiratory failure with hypoxia Is this a current diagnosis for this admission?: Yes (6) Alcohol abuse Is this a current diagnosis for this admission?: Yes (7) Lymphoma Is this a current diagnosis for this admission?: No (8) Hypokalemia Is this a current diagnosis for this admission?: Yes (9) Alcohol withdrawal delirium Is this a current diagnosis for this admission?: Yes (10) ARDS (adult respiratory distress syndrome) Is this a current diagnosis for this admission?: Yes (11) Aspiration pneumonia due to gastric secretions Is this a current diagnosis for this admission?: Yes (12) Pleural cavity effusion Is this a current diagnosis for this admission?: Yes - Additional Information Resuscitation Status: Full Code Discharge Diet: Regular Discharge Activity: Activity As Tolerated, Balance Activity w/Rest Referrals: [facility] [Provider Group] - 03/07/19 10:30 am Prescriptions: Carvedilol [Coreg 6.25 mg Tablet] 6.25 mg PO Q12 #60 tablet Prednisone [Deltasone 20 mg Tablet] 20 mg PO ASDIR PRN #6 tablet PRN Reason: Nicotine [Nicoderm 21 mg/24 Hr Transderm Patch] 1 each TD DAILYP PRN #30 patch.td24 PRN Reason: Albuterol Sulfate [Proair Hfa Inhalation Aerosol 8.5 gm Mdi] 1 puff IH Q4 PRN #1 mdi PRN Reason: Quetiapine Fumarate [Seroquel 100 mg Tablet] 100 mg PO Q12 #60 tablet Home Medications: Acetaminophen [Tylenol Soln 325 mg/10.15 ml Udcup] 650 mg PO Q4HP PRN udc 03/01/19 Albuterol Sulfate [Proair Hfa Inhalation Aerosol 8.5 gm Mdi] 1 puff IH Q4 PRN #1 mdi 03/01/19 Carvedilol [Coreg 6.25 mg Tablet] 6.25 mg PO Q12 #60 tablet 03/01/19 Folic Acid [Folvite 1 mg Tablet] 1 mg PO DAILY tablet 03/01/19 Multivitamin [Tab-A-Milla (Multiple Vitamin) Tablet] 1 tab PO DAILY tablet 03/01/19 Nicotine [Nicoderm 21 mg/24 Hr Transderm Patch] 1 each TD DAILYP PRN #30 patch.td24 03/01/19 Prednisone [Deltasone 20 mg Tablet] 20 mg PO ASDIR PRN #6 tablet 03/01/19 Quetiapine Fumarate [Seroquel 100 mg Tablet] 100 mg PO Q12 #60 tablet 03/01/19 Thiamine HCl [Thiamine 100 mg Tablet] 100 mg PO DAILY tablet 03/01/19 History of Present Illiness History of Present Illness: Per H&P by Dr. Lamar: EUGENIO LICEA is a 33 year old male who presented the emergency room with a one-week history of dyspnea. Patient admits to progressively worsening dyspnea over the last 7 days. His dyspnea has become severe and has been associated with progressively worsening wheezing. His dyspnea has also been accompanied by a subjective fever, a progressively worsening cough productive of green mucus and a aggressively worsening left- sided sharp chest pain occurring on inspiration and cough. He denies additional accompanying or associated signs and symptoms. He denies prior similar episodes. He denies identification of any additional aggravating or ameliorating factors for his dyspnea. In the emergency room he was found to have a temperature of 101.5 F a heart rate of 146 with a serum lactic acid was 3.7 and a left sided pneumonia on his chest x-ray. He was subsequently started on IV antibiotics for a community-acquired pneumonia admitted to the hospital for further evaluation and treatment. Hospital Course Hospital Course: The patient was admitted to for community-acquired pneumonia empirically placed on IV Rocephin and azithromycin with standard care set of supplemental oxygen, scheduled and as needed nebulizer treatments, pulmonary toilet, and supportive fluids. He did deteriorate rapidly, requiring increased oxygen, BiPAP support, and becoming progressively tachypneic and tachycardic. Therefore, he was upgraded to the ICU. Progress day 2, the patient became encephalopathic and required urgent intubatio n on 02/13/2019. Antibiotics were escalated at that time to meropenem and linezolid. He required both propofol and Dexemedatomidine for sedation secondary to Alcohol withdrawal with agitation, but fortunately remained off of pressor support. On 02/17/2019, he underwent successful left pleural thoracentesis with removal of approximately 900 mL's of fluid. He then underwent bedside bronchoscopy by the dehydrogenation operator service and found to have severe mucous obstruction with bronchopneumonia. He was successfully extubated 02/19/2019. He continued to clinically improve and was downgraded to IMCU status on 02/22/2019. He underwent a repeat thoracentesis by interventional radiology of following day with an additional 450 mils removed which was sent for cytology. There was some concern for possible leukemia or lymphoma; fortunately cytology was negative. Oncology service was consulted for evaluation. Send out laboratory testing returned Tracheal aspirate sputum cultures positive for Legionella. Therefore the patient's meropenem and linezolid were discontinued and the patient resumed azithromycin. He did complete a full course of IV azithromycin prior to discharge. Psychiatric mental health services were consulted and cleared the patient from IVC status. They did find the patient has depression and made medication recommendations which were implemented. Due to prolonged acute illness, the patient was quite debilitated and would become tachycardic and tachypneic with minimal activity. PT/OT consultations were obtained and nursing services were utilized to gradually increase the patient's activity tolerance. Medications were reviewed and those with side effect of tachycardia were minimized. The patient was also noted to have several recent hypertensive episodes warranting treatment. Therefore he was started on low-dose carvedilol. At time of discharge, the patient was in stable condition, ambulatory on room air while maintaining oxygen saturations. His heart rate would increase to the 120s, but quickly recovered with rest. The patient was discharged home with self-care. He was advised to [facility] to establish with a local PCP on 03/07/2019. He was instructed to take his medications as prescribed. He was advised not to smoke and to avoid all other respiratory triggers. He was instructed to slowly increase his activity as tolerated. He was encouraged to return to the emergency department as needed for concerning symptoms Physical Exam Vital Signs: Temp Pulse Resp BP Pulse Ox 98.6 F 87 16 144/86 H 95 03/01/19 15:00 03/01/19 15:00 03/01/19 15:00 03/01/19 15:00 03/01/19 15:00 Pulse Oximeter Continuous Start: 02/12/19 06:14 Freq: RTQ4 Status: Complete Protocol: Document 02/12/19 10:31 [facility] (Rec: 02/12/19 10:32 [facility] [id number]) Pulse Oximetry Assessment Equipment Usage Equipment Standby Continuous SpO2 Machine # na General appearance: PRESENT: no acute distress, cooperative, thin, well- developed, well-nourished Head exam: PRESENT: atraumatic, normocephalic Eye exam: PRESENT: conjunctiva pink, EOMI, PERRLA. ABSENT: scleral icterus Ear exam: PRESENT: normal external ear exam Mouth exam: PRESENT: moist, tongue midline Respiratory exam: PRESENT: clear to auscultation raul, symmetrical, unlabored, other - Ambulatory on room air. ABSENT: rales, rhonchi, wheezes Cardiovascular exam: PRESENT: RRR, +S1, +S2. ABSENT: diastolic murmur, rubs, systolic murmur Pulses: PRESENT: normal dorsalis pedis pul Vascular exam: PRESENT: normal capillary refill GI/Abdominal exam: PRESENT: normal bowel sounds, soft. ABSENT: distended, guarding, mass, organolmegaly, rebound, tenderness Rectal exam: PRESENT: deferred Extremities exam: PRESENT: full ROM. ABSENT: calf tenderness, clubbing, pedal edema Neurological exam: PRESENT: alert, awake, oriented to person, oriented to place, oriented to time, oriented to situation, CN II-XII grossly intact. ABSENT: motor sensory deficit Psychiatric exam: PRESENT: appropriate affect, normal mood. ABSENT: homicidal ideation, suicidal ideation Skin exam: PRESENT: dry, intact, warm. ABSENT: cyanosis, rash Results Laboratory Results: WBC 12.7 10^3/uL (4.0-10.5) H 03/01/19 03:54 RBC 2.51 10^6/uL (4.35-5.55) L 03/01/19 03:54 Hgb 8.3 g/dL (13.5-17.0) L 03/01/19 03:54 Hct 24.9 % (37.9-51.0) L 03/01/19 03:54 MCV 99 fl (80-97) H 03/01/19 03:54 MCH 33.2 pg (27.0-33.4) 03/01/19 03:54 MCHC 33.4 g/dL (32.0-36.0) 03/01/19 03:54 RDW 13.3 % (11.5-14.0) 03/01/19 03:54 Plt Count 450 10^3/uL (150-450) 03/01/19 03:54 Lymph % (Auto) 10.0 % (13-45) L 02/24/19 05:02 [place] % (Auto) 11.9 % (3-13) 02/24/19 05:02 Eos % (Auto) 2.1 % (0-6) 02/24/19 05:02 Baso % (Auto) 0.9 % (0-2) 02/24/19 05:02 Absolute Neuts (auto) 9.3 10^3/uL (1.7-8.2) H 02/24/19 05:02 Absolute Lymphs (auto) 1.2 10^3/uL (0.5-4.7) 02/24/19 05:02 Absolute Monos (auto) 1.5 10^3/uL (0.1-1.4) H 02/24/19 05:02 Absolute Eos (auto) 0.3 10^3/uL (0.0-0.6) 02/24/19 05:02 Absolute Basos (auto) 0.1 10^3/uL (0.0-0.2) 02/24/19 05:02 Total Counted 100 02/22/19 07:03 Seg Neutrophils % 75.1 % (42-78) 02/24/19 05:02 Seg Neuts % (Manual) 75 % (42-78) 02/22/19 07:03 Band Neutrophils % 3 % (3-5) 02/20/19 05:00 Lymphocytes % (Manual) 12 % (13-45) L 02/22/19 07:03 Monocytes % (Manual) 10 % (3-13) 02/22/19 07:03 Eosinophils % (Manual) 3 % (0-6) 02/22/19 07:03 Basophils % (Manual) 0 % (0-2) 02/22/19 07:03 Metamyelocytes % 2 % (0) H 02/14/19 06:07 Abs Neuts (Manual) 8.5 10^3/uL (1.7-8.2) H 02/22/19 07:03 Abs Lymphs (Manual) 1.4 10^3/uL (0.5-4.7) 02/22/19 07:03 Abs Monocytes (Manual) 1.1 10^3/uL (0.1-1.4) 02/22/19 07:03 Absolute Eos (Manual) 0.3 10^3/uL (0.0-0.6) 02/22/19 07:03 Abs Basophils (Manual) 0.0 10^3/uL (0.0-0.2) 02/22/19 07:03 Nucleated RBCs 1 /100 WBC (0) 02/14/19 06:07 Toxic Granulation SLIGHT 02/21/19 08:05 Toxic Vacuolation PRESENT 02/21/19 08:05 Large Platelets PRESENT 02/21/19 08:05 Platelet Comment INCREASED 02/22/19 07:03 Polychromasia SLIGHT 02/22/19 07:03 Hypochromasia 2+ 02/20/19 05:00 Poikilocytosis 1+ 02/22/19 07:03 Basophilic Stippling PRESENT 02/22/19 07:03 Macrocytosis 1+ 02/21/19 08:05 Target Cells SLIGHT 02/15/19 04:32 Ovalocytes SLIGHT 02/15/19 04:32 Stomatocytes 1+ 02/22/19 07:03 PT 14.1 SEC (11.4-15.4) 02/23/19 09:05 INR 1.09 02/23/19 09:05 APTT 27.0 SEC (23.5-35.8) 02/23/19 09:05 Fibrinogen 570 mg/dL (209-497) H 02/13/19 14:50 Carbonic Acid 1.23 mmol/L (1.05-1.35) 02/18/19 05:45 HCO3/H2CO3 Ratio 23:1 02/18/19 05:45 ABG pH 7.47 (7.35-7.45) H 02/18/19 05:45 ABG pCO2 40.7 mmHg (35-45) 02/18/19 05:45 ABG pO2 69.8 mmHg (80-100) L 02/18/19 05:45 ABG HCO3 28.9 mmol/L (20-24) H 02/18/19 05:45 ABG Total CO2 30.1 mmol/L (23-27) H 02/18/19 05:45 ABG O2 Saturation 94.9 % (94-98) 02/18/19 05:45 ABG Base Excess 4.8 mmol/L 02/18/19 05:45 FiO2 40% 02/18/19 05:45 Sodium 140.9 mmol/L (137-145) 03/01/19 03:54 Potassium 3.7 mmol/L (3.6-5.0) 03/01/19 03:54 Chloride 106 mmol/L (98-107) 03/01/19 03:54 Carbon Dioxide 24 mmol/L (22-30) 03/01/19 03:54 Anion Gap 11 (5-19) 03/01/19 03:54 BUN 18 mg/dL (7-20) 03/01/19 03:54 Creatinine 1.20 mg/dL (0.52-1.25) 03/01/19 03:54 Est GFR ( Amer) > 60 (>60) 03/01/19 03:54 Est GFR (MDRD) Non-Af > 60 (>60) 03/01/19 03:54 Glucose 74 mg/dL (75-110) L 03/01/19 03:54 POC Glucose 123 mg/dL (70-110) H 02/14/19 17:09 Lactic Acid 0.8 mmol/L (0.7-2.1) 02/22/19 14:24 Calcium 8.8 mg/dL (8.4-10.2) 03/01/19 03:54 Phosphorus 3.4 mg/dL (2.5-4.5) 02/18/19 05:45 Magnesium 1.8 mg/dL (1.6-2.3) 02/22/19 07:03 Total Bilirubin 3.9 mg/dL (0.2-1.3) H 02/18/19 05:45 Direct Bilirubin 2.9 mg/dL (0.0-0.4) H 02/18/19 05:45 Neonat Total Bilirubin Not Reportable 02/18/19 05:45 Neonat Direct Bilirubin Not Reportable 02/18/19 05:45 Neonat Indirect Bili Not Reportable 02/18/19 05:45 AST 72 U/L (17-59) H 02/18/19 05:45 ALT 58 U/L (<50) 02/18/19 05:45 Alkaline Phosphatase 109 U/L (38-126) 02/18/19 05:45 Ammonia < 8.7 umol/L (9-33) L 02/18/19 05:45 Lactate Dehydrogenase 319 U/L (120-246) H 02/16/19 14:18 Creatine Kinase < 20 U/L (55-170) L 02/13/19 21:17 Myoglobin 42 ng/mL (28-72) 02/13/19 14:50 Troponin I 0.020 ng/mL 02/13/19 14:50 Total Protein 5.0 g/dL (6.3-8.2) L 02/18/19 05:45 Albumin 2.4 g/dL (3.5-5.0) L 02/18/19 05:45 Triglycerides 258 mg/dL (<150) H 02/18/19 05:45 Lipase 26.1 U/L (23-300) 02/11/19 23:34 Random Cortisol 10.00 ug/dL (None Established) 02/13/19 20:19 Urine Color ROMAIN 02/11/19 23:34 Urine Appearance SLIGHTLY-CLOUDY 02/11/19 23:34 Urine pH 5.0 (5.0-9.0) 02/11/19 23:34 Ur Specific [place] 1.023 02/11/19 23:34 Urine Protein 30 mg/dL (NEGATIVE) H 02/11/19 23:34 Urine Glucose (UA) NEGATIVE mg/dL (NEGATIVE) 02/11/19 23:34 Urine Ketones NEGATIVE mg/dL (NEGATIVE) 02/11/19 23:34 Urine Blood NEGATIVE (NEGATIVE) 02/11/19 23:34 Urine Nitrite NEGATIVE (NEGATIVE) 02/11/19 23:34 Urine Bilirubin MODERATE (NEGATIVE) H 02/11/19 23:34 Urine Urobilinogen 4.0 mg/dL (<2.0) H 02/11/19 23:34 Ur Leukocyte Esterase NEGATIVE (NEGATIVE) 02/11/19 23:34 Urine WBC (Auto) 36 /HPF 02/11/19 23:34 Urine RBC (Auto) 1 /HPF 02/11/19 23:34 U Hyaline Cast (Auto) 16 /LPF 02/11/19 23:34 Urine Bacteria (Auto) 3+ /HPF 02/11/19 23:34 Squamous Epi Cells Auto 1 /HPF 02/11/19 23:34 U Non-Squamous Epis Auto 1 /HPF 02/11/19 23:34 WBC Casts (Auto) 14 /LPF 02/11/19 23:34 Urine Mucus (Auto) RARE /LPF 02/11/19 23:34 Urine Myoglobin 54 ng/mL (0-13) H 02/13/19 14:50 Urine Ascorbic Acid NEGATIVE (NEGATIVE) 02/11/19 23:34 Fluid Type PLEURAL 02/23/19 11:15 Fluid Source LUNG 02/23/19 11:15 Fluid Color YELLOW 02/23/19 11:15 Fluid Appearance HAZY 02/23/19 11:15 Fluid Viscosity LIQUID 02/23/19 11:15 Fluid WBC 913 /uL 02/23/19 11:15 Fluid RBC 1940 /uL 02/23/19 11:15 Fluid Seg Neutrophils 7 % 02/23/19 11:15 Fluid Lymphocytes 82 % 02/23/19 11:15 Fluid Monocytes 11 % 02/23/19 11:15 Fluid Eosinophils 0 % 02/23/19 11:15 Fluid Basophils 0 % 02/23/19 11:15 Fluid Glucose 121 mg/dL (.) 02/16/19 14:18 Fluid Total Protein 1.5 g/dL (.) 02/23/19 11:15 Fluid LDH 553 IU/L (.) 02/16/19 14:18 Fluid Amylase 40 U/L (.) 02/16/19 14:18 Time Trough Drawn 214402/24/19 21:45 Vancomycin Trough 22.3 ug/mL (5.0-20.0) H 02/24/19 21:45 Leuk/Lym Specimen Comment (.) 02/23/19 11:15 Leuk/Lym Spec Viability Comment (.) 02/23/19 11:15 Leuk/Lym Gating Strategy Comment (.) 02/23/19 11:15 Leuk/Lym Leuk Assess Comment (.) 02/23/19 11:15 Leuk/Lym Comment Comment (.) 02/23/19 11:15 Leuk/Lym Phenotype Chart Comment (.) 02/23/19 11:15 Leuk/Lym Interpretation Comment (.) 02/23/19 11:15 L/L Sign Pathologist Comment (.) 02/23/19 11:15 HIV 1&2 Antibody NEGATIVE (NEGATIVE) 02/22/19 11:37 Influenza A (Rapid) NEGATIVE (NEGATIVE) 02/12/19 02:00 Influenza B (Rapid) NEGATIVE (NEGATIVE) 02/12/19 02:00 L.pneumophila S1-6 Abs <0.91 OD ratio (0.00-0.90) 02/14/19 06:07 Group A Strep Rapid NEGATIVE (NEGATIVE) 02/12/19 01:45 AFB Smear NO ACID FAST BACILLI (NO AFB SEEN) 02/16/19 15:53 Flow Cytometry Comment Comment (.) 02/23/19 11:15 Cytology Clinical Info Not Reportable 02/23/19 11:15 Slides for Path Review Cancelled 02/17/19 16:45 02/13/19 14:50 Troponin I 0.020 Impressions: Chest X-Ray 02/12/19 00:00 IMPRESSION: 1. Significantly worse left pulmonary infiltrate, consistent with pneumonia 2. Interval development of new right lower lobe infiltrate Chest X-Ray 02/12/19 01:24 IMPRESSION: Large left-sided pneumonia. Chest X-Ray 02/13/19 00:00 IMPRESSION: Worsening multifocal pneumonia. copyright 2010 [employer]- All Rights Reserved Chest X-Ray 02/13/19 00:00 IMPRESSION: INTERVAL CENTRAL LINE PLACEMENT. NO PNEUMOTHORAX. OTHERWISE NO CHANGE. KUB X-Ray 02/13/19 00:00 IMPRESSION: Lines and tubes as above. Nonobstructive bowel gas pattern. Chest X-Ray 02/13/19 09:58 IMPRESSION: LIFE LINES DESCRIBED. OTHERWISE NO CHANGE IN APPEARANCE OF THE CHEST. KUB X-Ray 02/13/19 09:59 IMPRESSION: SATISFACTORY POSITION OF THE NASOGASTRIC TUBE. NO RADIOGRAPHIC EVIDENCE FOR ACUTE ABDOMINAL DISEASE. Abdomen Ultrasound 02/14/19 00:00 IMPRESSION: Thickened gallbladder wall. No pericholecystic edema or stones. Fatty infiltrated liver with hepatomegaly. Chest X-Ray 02/14/19 06:00 IMPRESSION: 1. Tubes and lines as above. 2. Unchanged radiographic appearance of the chest as detailed above. Abdomen/Pelvis CT 02/15/19 00:00 IMPRESSION: 1. Complete opacification of left hemithorax consistent with dense consolidation. Small left effusion. 2. Fairly extensive right upper and right lower lobe infiltrate consistent with pneumonia as well. Small right effusion. IMPRESSION: 1. Small amount of ascites. 2. Thickened gallbladder wall with surrounding inflammation. Acute cholecystitis cannot be excluded. Chest CT 02/15/19 00:00 IMPRESSION: 1. Complete opacification of left hemithorax consistent with dense consolidation. Small left effusion. 2. Fairly extensive right upper and right lower lobe infiltrate consistent with pneumonia as well. Small right effusion. IMPRESSION: 1. Small amount of ascites. 2. Thickened gallbladder wall with surrounding inflammation. Acute cholecystitis cannot be excluded. Chest X-Ray 02/15/19 06:23 IMPRESSION: No significant change compared to the prior exam. copyright 2011 [employer]- All Rights Reserved Chest X-Ray 02/16/19 00:00 IMPRESSION: STABLE APPEARANCE OF THE CHEST. SUPPORT DEVICES UNCHANGED. Chest X-Ray 02/16/19 00:00 IMPRESSION: Unchanged radiographic appearance of the chest as detailed above. Chest X-Ray 02/17/19 06:00 IMPRESSION: 1. Tubes and lines as above. 2. Unchanged radiographic appearance of the chest. Chest X-Ray 02/17/19 16:56 IMPRESSION: There is no significant interval change since the earlier study. Chest X-Ray 02/18/19 06:00 IMPRESSION: Extensive pneumonia with left pleural effusion. No improvement. SUPPORT DEVICE(S) IN EXPECTED LOCATIONS. Chest X-Ray 02/19/19 06:46 IMPRESSION: Mild improvement in the pneumonia. Decrease in the left effusion. SUPPORT DEVICE(S) IN EXPECTED LOCATIONS. Chest CT 02/22/19 00:00 IMPRESSION: 1. Improved aeration of the left upper and lower lobes with persistent multifocal bilateral consolidation and ground-glass attenuation suggestive of multifocal pneumonia. 2. Mild right and [id number] left-sided pleural effusion, increased from prior CT. Chest X-Ray 02/22/19 06:00 IMPRESSION: Persistent multifocal bilateral airspace disease with dense opacification of the left hemithorax. Mildly improved left perihilar aeration. Mild left effusion. Thoracentesis Ultrasound 02/23/19 00:00 IMPRESSION: SUCCESSFUL THORACENTESIS USING ULTRASOUND GUIDANCE. Chest X-Ray 02/23/19 11:25 IMPRESSION: No pneumothorax status post left thoracentesis. Chest X-Ray 02/23/19 13:25 IMPRESSION: No pneumothorax post left thoracentesis. Plan Plan of Treatment: The patient was discharged home in stable condition. [facility] is [facility] scheduled to establish with a local PCP. He is advised to take his medications as prescribed. He is instructed not to smoke and avoid all other known respiratory triggers. He is recommended to slowly increase his activity level as tolerated. He is encouraged to return to the emergency department as needed for concerning symptoms. Time Spent: Greater than 30 Minutes Stroke Is this a Stroke Patient?: No Acute Heart Failure - Is this a Heart Failure Patient?: No
== END 2019-03-01 15:49 | disposition home or self-care (01) | DRG 870 ==
LOC: ER 23:18 → EH 02-12 04:53 → 4S 02-12 05:45 → ICU 02-12 21:53 → 3N 02-21 11:41
PROVIDERS: ADMIT Hospitalist; ATTEND Hospitalist
PROC: 5A1955Z Respiratory Ventilation, Greater than 96 Consecutive Hours (ICD-10-PCS; principal; 2019-02-13)
PROC: 0BH17EZ Insertion of Endotracheal Airway into Trachea, Via Natural or Artificial Opening (ICD-10-PCS; 2019-02-13)
PROC: 05H533Z Insertion of Infusion Device into Right Subclavian Vein, Percutaneous Approach (ICD-10-PCS; 2019-02-13)
PROC: 03HB33Z Insertion of Infusion Device into Right Radial Artery, Percutaneous Approach (ICD-10-PCS; 2019-02-13)
PROC: 0W9B3ZX Drainage of Left Pleural Cavity, Percutaneous Approach, Diagnostic (ICD-10-PCS; 2019-02-16)
PROC: 0B978ZZ Drainage of Left Main Bronchus, Via Natural or Artificial Opening Endoscopic (ICD-10-PCS; 2019-02-17)
PROC: 0B9H7ZX Drainage of Lung Lingula, Via Natural or Artificial Opening, Diagnostic (ICD-10-PCS; 2019-02-17)
PROC: 0W9B3ZZ Drainage of Left Pleural Cavity, Percutaneous Approach (ICD-10-PCS; 2019-02-23)
DX: A41.9 Sepsis, unspecified organism (principal); A48.1 Legionnaires' disease; G93.41 Metabolic encephalopathy; J80 Acute respiratory distress syndrome; R65.21 Severe sepsis with septic shock; J69.0 Pneumonitis due to inhalation of food and vomit; J90 Pleural effusion, not elsewhere classified; N17.9 Acute kidney failure, unspecified; F10.231 Alcohol dependence with withdrawal delirium; E86.0 Dehydration; E87.6 Hypokalemia; F17.200 Nicotine dependence, unspecified, uncomplicated; J45.909 Unspecified asthma, uncomplicated; F32.9 Major depressive disorder, single episode, unspecified; S50.811A Abrasion of right forearm, initial encounter; X58.XXXA Exposure to other specified factors, initial encounter; Y99.9 Unspecified external cause status; D69.59 Other secondary thrombocytopenia; D64.9 Anemia, unspecified; I10 Essential (primary) hypertension; Z78.1 Physical restraint status; Z82.49 Family history of ischemic heart disease and other diseases of the circulatory system; Z83.3 Family history of diabetes mellitus
CPT/HCPCS: 31500; 32555; 36415; 36600; 71045; 71260; 74018; 74177; 76700; 80048; 80053; 80076; 80202; 81001; 82140; 82150; 82533; 82550; 82803; 82945; 82962; 83605; 83615; 83690; 83735; 83874; 84100; 84155; 84157; 84478; 84484; 85025; 85027; 85384; 85610; 85730; 86701; 86713; 87015; 87040; 87070; 87075; 87077; 87101; 87116; 87186; 87205; 87206; 87252; 87486; 87804; 87880; 88184; 88185; 88305; 89050; 93005; 93010; 93306; 94002; 94003; 94640; 94660; 94667; 94799; 96361; 96365; 96367; 99285; 99291; 99292; A4649; C1751; J0330; J0456; J0696; J1170; J1644; J1720; J1940; J2020; J2060; J2185; J2250; J2300; J2543; J2704; J3010; J3230; J3360; J3370; J3411; J3480; J3490; J7030; J7050; J7060; J7120; J7512; J7614; J7620; P9041; P9047

== ENCOUNTER → 2019-03-09 | Outpatient (CLI) | payer OTHER ==
[2019-03-09 13:22] LABS: ABSOLUTE BASOPHILS # (AUTO) 0.1 10^3/uL (0.0-0.2); ABSOLUTE EOSINOPHILS # (AUTO) 0.1 10^3/uL (0.0-0.6); ABSOLUTE LYMPHOCYTES (AUTO) 0.7 10^3/uL (0.5-4.7); ABSOLUTE MONOCYTES (AUTO) 0.3 10^3/uL (0.1-1.4); ABSOLUTE NEUT (AUTO) 8.2 10^3/uL (1.7-8.2); BASOPHILS % (AUTO) 0.8 % (0-2); EOSINOPHILS % (AUTO) 0.6 % (0-6); HEMATOCRIT 32.5 % (37.9-51.0); HEMOGLOBIN 11.2 g/dL (13.5-17.0); LYMPHOCYTES % (AUTO) 7.2 % (13-45); MEAN CORPUSCULAR HEMOGLOBIN 33.2 pg (27.0-33.4); MEAN CORPUSCULAR HGB CONC 34.5 g/dL (32.0-36.0); MEAN CORPUSCULAR VOLUME 96 fl (80-97); MONOCYTES % (AUTO) 2.8 % (3-13); PLATELET COUNT 407 10^3/uL (150-450); RED BLOOD COUNT 3.37 10^6/uL (4.35-5.55); RED CELL DISTRIBUTION WIDTH 13.4 % (11.5-14.0); SEGMENTED NEUTROPHILS % (AUTO) 88.6 % (42-78); TOTAL CELLS COUNTED % (AUTO) 100 %; WHITE BLOOD COUNT 9.3 10^3/uL (4.0-10.5)
[2019-03-09 13:47] LABS: ANION GAP 12 (5-19); BLOOD UREA NITROGEN 13 mg/dL (7-20); CALCIUM 9.8 mg/dL (8.4-10.2); CARBON DIOXIDE 25 mmol/L (22-30); CHLORIDE 103 mmol/L (98-107); GLUCOSE 98 mg/dL (75-110); POTASSIUM 4.8 mmol/L (3.6-5.0)
--- NOTE | 2019-03-09 14:21 | RADIOLOGY REPORT (SQ) ---
EXAM DESCRIPTION: CHEST PA/LATERAL COMPLETED DATE/TIME: 03/09/2019 12:46 pm REASON FOR STUDY: PNEUMONIA, UNSPECIFIED ORGANISM COMPARISON: 02/26/2019 and 02/23/2019. EXAM PARAMETERS: NUMBER OF VIEWS: two views TECHNIQUE: Digital Frontal and Lateral radiographic views of the chest acquired. RADIATION DOSE: NA LIMITATIONS: none FINDINGS: LUNGS AND PLEURA: Improved aeration. Previously seen alveolar infiltrate in the left lung has cleared. There are few residual linear densities in the right lung. No pleural effusion. MEDIASTINUM AND HILAR STRUCTURES: No masses or contour abnormalities. HEART AND VASCULAR STRUCTURES: Heart normal size. No evidence for failure. BONES: No acute findings. HARDWARE: None in the chest. OTHER: No other significant finding. IMPRESSION: IMPROVED APPEARANCE OF THE CHEST WITH ESSENTIALLY COMPLETE CLEARING OF THE PREVIOUSLY SE EN PULMONARY INFILTRATES. THERE ARE A FEW RESIDUAL LINEAR DENSITIES IN THE RIGHT LUNG. TECHNICAL DOCUMENTATION: JOB ID: [id number] [employer]- All Rights Reserved Reading location - IP/workstation name: [email or web address]
[2019-03-09 14:53] LABS: FOLATE > 20.00 ng/mL (>2.76)
== END ==
LOC: CCC 12:26
DX: J18.9 Pneumonia, unspecified organism (principal); N17.9 Acute kidney failure, unspecified; D53.9 Nutritional anemia, unspecified
CPT/HCPCS: 36415; 71046; 80048; 82607; 82746; 85025